=== PATIENT | male | born 1945 | race Caucasian/White ===

== ENCOUNTER → 2016-08-23 | Outpatient (CLI) | payer OTHER ==
[~2016-08-23] MED LIST: AML5T PO; ASPI81TA69 PO; ATOR20TA PO; CLOP75TA28 PO; LEVO50TA66 PO; LOSA100T21 PO; TELM20TA2 PO
== END | disposition home or self-care (01) ==
LOC: Rad HDHVI 15:01
PROVIDERS: ATTEND Internal Medicine Cardiovascular Disease
DX: I10 Essential (primary) hypertension (principal); E78.00 Pure hypercholesterolemia, unspecified; Q23.0 Congenital stenosis of aortic valve
CPT/HCPCS: 93306

== ENCOUNTER → 2016-08-24 | Outpatient (CLI) | payer OTHER | END | disposition home or self-care (01) | LOC: Rad HDHVI 08:17 | PROVIDERS: ATTEND Internal Medicine Cardiovascular Disease | DX: G45.8 Other transient cerebral ischemic attacks and related syndromes (principal); Q23.0 Congenital stenosis of aortic valve | CPT/HCPCS: 93880 ==

== ENCOUNTER → 2017-01-24 | Outpatient (CLI) | payer OTHER | END | disposition home or self-care (01) | LOC: Rad HDHVI 15:01 | PROVIDERS: ATTEND Internal Medicine Cardiovascular Disease | DX: G45.9 Transient cerebral ischemic attack, unspecified (principal) | CPT/HCPCS: 93880; 93926 ==

== ENCOUNTER → 2017-02-22 | Outpatient (CLI) | payer OTHER ==
[~2017-02-22] VITALS: Ht 180.3 cm; Wt 81.6 kg
[~2017-02-22] MED LIST changes: +ADENOSINE 69 MG in GIVE UN-DILUTED 0 ML IV ONE; +ADENOSINE 90 MG/30 ML INJ IV ONE
== END | disposition home or self-care (01) ==
LOC: Rad HDHVI 08:29
PROVIDERS: ATTEND Internal Medicine Cardiovascular Disease
DX: I25.10 Atherosclerotic heart disease of native coronary artery without angina pectoris (principal); I10 Essential (primary) hypertension; E03.9 Hypothyroidism, unspecified; R53.81 Other malaise; R97.20 Elevated prostate specific antigen [PSA]; E78.00 Pure hypercholesterolemia, unspecified
CPT/HCPCS: 36415; 78452; 84153; 84403; 84443; 93005; 96374; 96375; A9500; J0153

== ENCOUNTER → 2017-10-20 | Outpatient (CLI) | payer MEDICARE ==
[~2017-10-20] MED LIST changes: -ADENOSINE 69 MG in GIVE UN-DILUTED 0 ML IV ONE; -ADENOSINE 90 MG/30 ML INJ IV ONE; +TELM20TA PO; -TELM20TA2 PO
== END | disposition home or self-care (01) ==
LOC: Rad HDHVI 09:24
PROVIDERS: ATTEND Internal Medicine Cardiovascular Disease
DX: I70.0 Atherosclerosis of aorta (principal); I10 Essential (primary) hypertension; E03.9 Hypothyroidism, unspecified; E78.00 Pure hypercholesterolemia, unspecified
CPT/HCPCS: 71046

== ENCOUNTER → 2017-10-30 | Outpatient (CLI) | payer MEDICARE | END | disposition home or self-care (01) | LOC: Rad HDHVI 08:09 | PROVIDERS: ATTEND Internal Medicine Cardiovascular Disease | DX: I35.0 Nonrheumatic aortic (valve) stenosis (principal); R06.02 Shortness of breath; E78.00 Pure hypercholesterolemia, unspecified; E03.9 Hypothyroidism, unspecified | CPT/HCPCS: 93306 ==

== ENCOUNTER → 2018-04-17 | Outpatient (CLI) | payer MEDICARE | END | disposition home or self-care (01) | LOC: Rad HDHVI 08:00 | PROVIDERS: ATTEND Internal Medicine Cardiovascular Disease | DX: I73.9 Peripheral vascular disease, unspecified (principal) | CPT/HCPCS: 93926 ==

== ENCOUNTER → 2018-05-14 | Outpatient (CLI) | payer MEDICARE ==
[~2018-05-14] VITALS: Ht 180.3 cm; Wt 77.1 kg
[~2018-05-14] MED LIST changes: +GABA800T97 PO
[2018-05-14 09:15] VITALS: BP 142/61
[2018-05-14 09:40] VITALS: BP 132/61
[2018-05-14 12:24] LABS: Basophils # (auto) 0.1 uL; Basophils % (auto) 0.9 % (0.0-2.0); Eosinophils # (auto) 0.1 uL; Eosinophils % (auto) 1.6 % (0.0-7.0); Hematocrit 41.3 % (41.0-53.0); Hemoglobin 14.1 g/dL (13.5-17.5); Lymphocytes # (auto) 1.9 uL; Lymphocytes % (auto) 24.8 % (10.0-50.0); Mean Corpuscular Hemoglobin 31.7 pg (28.0-32.0); Mean Corpuscular Hgb Conc. 34.2 g/dL (32.0-36.0); Mean Corpuscular Volume 92.6 fL (80.0-100.0); Monocytes # (auto) 0.7 uL; Monocytes % (auto) 9.7 % (0.0-12.0); Neutrophils # (auto) 4.9 uL; Nucleated Red Blood Cells % 0.1 %; Platelet Count (auto) 282 10^3/uL (140-450); Red Blood Cells 4.45 10^6/uL (4.5-5.90); Red Cell Distribution Width 13.5 % (11.8-14.3); White Blood Cell 7.7 10^3/uL (4.4-10.8)
[2018-05-14 12:33] LABS: Calcium 8.9 mg/dL (8.5-10.1); Potassium 4.2 mmol/L (3.5-5.1)
[2018-05-14 12:35] LABS: BUN/Creatinine Ratio 13.3; INR 0.99 (0.9-1.15); Prothrombin Time 10.6 sec (9.27-12.13)
== END | disposition home or self-care (01) ==
LOC: Rad HDHVI 08:53
PROVIDERS: ATTEND Internal Medicine Cardiovascular Disease
DX: Z01.818 Encounter for other preprocedural examination (principal); D64.9 Anemia, unspecified; R79.1 Abnormal coagulation profile; I10 Essential (primary) hypertension
CPT/HCPCS: 36415; 71046; 80048; 85025; 85610; 85730; 93005; G0463

== ENCOUNTER → 2018-08-27 | Outpatient (CLI) | payer MEDICARE ==
[~2018-08-27] MED LIST changes: +CHLO25TA22 PO; +LEVO88TA4 PO; +TELM80TA PO
[2018-08-27 11:10] VITALS: BP 137/77
--- NOTE | 2018-08-27 11:10 | NUR ---
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
--- NOTE | 2018-08-27 11:20 | NUR ---
Discharge Instructions See e-MAR for any mediations given with this visit. Patient education given on disease process. Patient verbalized understanding. Previous labs reviewed. Patient discharged in stable condition with after care instructions and follow up appointment.
[2018-08-27 12:27] LABS: BUN/Creatinine Ratio 13.3; Potassium 3.8 mmol/L (3.5-5.1)
[2018-08-27 12:31] LABS: Basophils # (auto) 0.1 uL; Basophils % (auto) 1.1 % (0.0-2.0); Eosinophils # (auto) 0.1 uL; Eosinophils % (auto) 1.1 % (0.0-7.0); Hemoglobin 14.8 g/dL (13.5-17.5); Lymphocytes # (auto) 1.7 uL; Lymphocytes % (auto) 26.2 % (10.0-50.0); Mean Corpuscular Hemoglobin 32.2 pg (28.0-32.0); Mean Corpuscular Hgb Conc. 34.5 g/dL (32.0-36.0); Mean Corpuscular Volume 93.4 fL (80.0-100.0); Monocytes # (auto) 0.8 uL; Monocytes % (auto) 11.8 % (0.0-12.0); Neutrophils # (auto) 3.9 uL; Neutrophils % (auto) 59.8 % (37.0-80.0); Nucleated Red Blood Cells % 0.1 %; Platelet Count (auto) 321 10^3/uL (140-450); Red Blood Cells 4.61 10^6/uL (4.5-5.90); Red Cell Distribution Width 13.6 % (11.8-14.3); White Blood Cell 6.6 10^3/uL (4.4-10.8)
[2018-08-27 12:38] LABS: INR 0.95 (0.9-1.15); Partial Thromboplastin Time 30.6 sec (23.78-33.04); Prothrombin Time 10.2 sec (9.27-12.13)
== END | disposition home or self-care (01) ==
LOC: Rad HDHVI 10:55
PROVIDERS: ATTEND Internal Medicine Cardiovascular Disease
DX: Z01.812 Encounter for preprocedural laboratory examination (principal); I70.0 Atherosclerosis of aorta; D64.9 Anemia, unspecified; R79.1 Abnormal coagulation profile; I10 Essential (primary) hypertension
CPT/HCPCS: 36415; 71046; 80048; 85025; 85610; 85730; 93005; G0463

== ENCOUNTER 2018-08-30 07:17 | Day surgery (SDC) | payer MEDICARE ==
[~2018-08-30] VITALS: Ht 177.8 cm; Wt 80.7 kg
[~2018-08-30 07:17] MED LIST changes: -AML5T PO; -LEVO50TA66 PO; -LOSA100T21 PO; -TELM20TA PO
[2018-08-30] MEDS ORDERED: HEPARIN IN NS 1000Units/500mL 1,500 ML ONE (07:55)
[2018-08-30] MEDS ORDERED: LIDOCAINE 2%HCL (LOCAL ANESTH.) INJ 20ML MDV ONE (07:55)
[2018-08-30] MEDS ORDERED: IOHEXOL 350 MG/ML 100ML IJ ONE ×2 (07:55→08:01)
[2018-08-30] MEDS ORDERED: fentaNYL CITRATE 100 MCG/2 ML VL ONE (07:59)
[2018-08-30] MEDS ORDERED: ANGIOMAX 250 MG VIAL IV ONE (07:59)
[2018-08-30] MEDS ORDERED: SODIUM CHL 0.9% 50 ML ONE (08:00)
[2018-08-30] MEDS ORDERED: MIDAZOLAM HCL 1MG/1ML-2 ML VIAL ONE ×2 (08:00→08:24)
[2018-08-30] MEDS ORDERED: diphenhdrAMINE HCL 50 MG/1 ML VL ONE (08:28)
== END 2018-08-30 13:15 | disposition home or self-care (01) ==
LOC: CATH 07:17
PROVIDERS: ATTEND Internal Medicine Cardiovascular Disease
DX: I74.3 Embolism and thrombosis of arteries of the lower extremities (principal); I77.1 Stricture of artery; F17.200 Nicotine dependence, unspecified, uncomplicated; I10 Essential (primary) hypertension; E78.00 Pure hypercholesterolemia, unspecified; Z91.041 Radiographic dye allergy status; Z95.5 Presence of coronary angioplasty implant and graft; Z79.82 Long term (current) use of aspirin; Z79.899 Other long term (current) drug therapy; Z98.890 Other specified postprocedural states
CPT/HCPCS: 37186; 37224; 75710; A6257; C1725; C1760; C1769; C1894; J0583; J1200; J1644; J2250; J3010; J7030; Q9967; 99152; 99153

== ENCOUNTER → 2018-09-11 | Outpatient (CLI) | payer MEDICARE ==
[2018-09-11 13:10] LABS: Albumin 3.4 g/dL (3.4-5.0); BUN/Creatinine Ratio 14.3; Bilirubin, Total 0.5 mg/dL (0.2-1.0); Calcium 8.4 mg/dL (8.5-10.1); Magnesium 2.7 mg/dL (1.6-2.6); Total Protein 6.6 g/dL (6.4-8.2)
== END | disposition home or self-care (01) ==
LOC: LAB 10:02
PROVIDERS: ATTEND Internal Medicine Cardiovascular Disease
DX: E11.9 Type 2 diabetes mellitus without complications (principal); E03.9 Hypothyroidism, unspecified; E55.9 Vitamin D deficiency, unspecified; I10 Essential (primary) hypertension
CPT/HCPCS: 36415; 80053; 82306; 83036; 83735; 84153; 84443

== ENCOUNTER → 2018-09-12 | Outpatient (CLI) | payer MEDICARE ==
[~2018-09-12] VITALS: Ht 30.5 cm; Wt 0.5 kg
[~2018-09-12] MED LIST changes: +SODIUM CHL 3% 250 ML IV ONE; +SODIUM CHL 3% 500 ML ONE
--- NOTE | 2018-09-12 07:55 | NUR ---
PT. TO CLINIC FOR IV INFUSION OF 3% NORMAL SALINE PER DR. JAMES, AFTER LAB REVIEW YESTERDAY OF SODIUM LEVEL OF 119. PT. ALSO WITH CONTINUED ELEVATED SYSTOLIC B/P., STATING HE TOOK ALL OF HIS AM MEDS. SEE NSG ASSESS. ORDERS RECEVED AND CARRIED OUT.
[2018-09-12 08:00] VITALS: BP 186/85
--- NOTE | 2018-09-12 08:00 | NUR ---
IV insertion IV access obtained, via clean sterile technique by inserting 22 gauge catheter at after attempt(s). IV secured properly. No trauma to site. Patient tolerated procedure well.
--- NOTE | 2018-09-12 08:05 | NUR ---
MEDS: 3% NORMAL SALINE STARTED AT 50 CC/HR.
--- NOTE | 2018-09-12 10:28 | NUR ---
RESTING IN CHAIR. BP IMPROVED. INFUSION ONGOING.
[2018-09-12 13:13] VITALS: BP 134/66
--- NOTE | 2018-09-12 13:13 | NUR ---
CHF INFUSION COMPLETED. TOLERATED WELL. RETURN TO CLINIC FOR FOLLOWUP LABS TOMORROW. MEDICATION ADMINISTRATION 3 % SALINE AT 50 ML/HR START AT 0810/STOP AT 1310
== END | disposition home or self-care (01) ==
LOC: CHF HDHVI 07:54
PROVIDERS: ATTEND Internal Medicine Cardiovascular Disease
DX: E87.1 Hypo-osmolality and hyponatremia (principal); E03.9 Hypothyroidism, unspecified; E11.9 Type 2 diabetes mellitus without complications; I10 Essential (primary) hypertension; E78.00 Pure hypercholesterolemia, unspecified; Z95.5 Presence of coronary angioplasty implant and graft; Z79.82 Long term (current) use of aspirin; Z86.718 Personal history of other venous thrombosis and embolism; Z79.899 Other long term (current) drug therapy
CPT/HCPCS: 96365; 96366; G0463

== ENCOUNTER → 2018-09-13 | Outpatient (CLI) | payer MEDICARE ==
[~2018-09-13] MED LIST changes: +SODIUM CHL 3% ONE
--- NOTE | 2018-09-13 08:50 | NUR ---
PT. TP CHF CLINIC FOR REPEAT LABS AND HYPERTONIC SALINE INFUSION PER MD ORDER. SEE NSG ASSESS. ORDERS RECEIVED AND CARRIED OUT.
[2018-09-13 09:00] VITALS: BP 182/70
--- NOTE | 2018-09-13 09:00 | NUR ---
IV insertion IV access obtained, via clean sterile technique by inserting 22 gauge catheter at after attempt(s). IV secured properly. No trauma to site. Patient tolerated procedure well. STAT BMP SENT PER MD ORDER.
--- NOTE | 2018-09-13 09:05 | NUR ---
MEDS: 3% SALINE STARTED AT 50 CC/HR PER MD ORDER.
[2018-09-13 10:06] LABS: BUN/Creatinine Ratio 14.5; Calcium 8.3 mg/dL (8.5-10.1); Potassium 3.8 mmol/L (3.5-5.1)
[2018-09-13 12:10] VITALS: BP 167/69
--- NOTE | 2018-09-13 12:10 | NUR ---
INFUSION COMPLETED. TOLERATED WELL. Discharge Instructions See e-MAR for any mediations given with this visit. Patient education given on disease process. Patient verbalized understanding. Previous labs reviewed. Patient discharged in stable condition with after care instructions and follow up appointment FOR 09/14/18 AT 0830
== END | disposition home or self-care (01) ==
LOC: CHF HDHVI 08:51
PROVIDERS: ATTEND Internal Medicine Cardiovascular Disease
DX: E87.1 Hypo-osmolality and hyponatremia (principal); E78.5 Hyperlipidemia, unspecified; I10 Essential (primary) hypertension; J32.9 Chronic sinusitis, unspecified; K57.90 Diverticulosis of intestine, part unspecified, without perforation or abscess without bleeding; E03.9 Hypothyroidism, unspecified; E11.9 Type 2 diabetes mellitus without complications; Z79.82 Long term (current) use of aspirin; Z79.899 Other long term (current) drug therapy; Z95.1 Presence of aortocoronary bypass graft; Z87.891 Personal history of nicotine dependence; Z86.718 Personal history of other venous thrombosis and embolism
CPT/HCPCS: 36415; 80048; 96365; 96366; G0463

== ENCOUNTER → 2018-09-14 | Outpatient (CLI) | payer MEDICARE ==
[~2018-09-14] VITALS: Ht 30.5 cm; Wt 78.0 kg
[~2018-09-14] MED LIST changes: -SODIUM CHL 3% 250 ML IV ONE; +SODIUM CHL 3% 500 ML IV ONE; -SODIUM CHL 3% ONE
[2018-09-14 08:40] VITALS: BP 171/67
--- NOTE | 2018-09-14 08:40 | NUR ---
CHF PT TO CLINIC FOR REPEAT 3% NS INFUSION.
--- NOTE | 2018-09-14 08:45 | NUR ---
IV insertion IV access obtained, via clean sterile technique by inserting 22 gauge catheter at LEFT FOREARM after 1 attempt(s). IV secured properly. No trauma to site. Patient tolerated procedure well. Addendum: 09/14/18 at 0962 by Archana Chaidez RN BMP DRAWN AND SENT STAT
--- NOTE | 2018-09-14 08:48 | NUR ---
Clinic Provider Clinic Provider into see pt with new orders received and carried out. 3% SALINE INFUSION STARTED AT 50 ML/HR.
--- NOTE | 2018-09-14 09:00 | NUR ---
INFUSION ONGOING. TOLERATING WELL.
[2018-09-14 09:15] VITALS: BP 173/69
[2018-09-14 09:30] VITALS: BP 172/71
[2018-09-14 09:40] LABS: BUN/Creatinine Ratio 13.1; Calcium 8.7 mg/dL (8.5-10.1); Potassium 3.9 mmol/L (3.5-5.1)
[2018-09-14 10:15] VITALS: BP 155/67
--- NOTE | 2018-09-14 11:30 | NUR ---
FREQUENT VITALS 0915 BP 173/69 HR 69 0930 BP 172/71 HR 60 1015 BP 155/67 HR 63 1045 166/63 HR 64 1130 BP 149/63 HR 63
--- NOTE | 2018-09-14 12:40 | NUR ---
CURRENT LABS REVIEWED AND DISCUSSED WITH PATIIENT. FOLLOWUP ON Monday09/17/18 WITH
[2018-09-14 12:49] VITALS: BP 170/70
--- NOTE | 2018-09-14 13:00 | NUR ---
CHF TREATMENT COMPLETED. TOLERATED WELL. SEE FREQUENT VITALS Discharge Instructions See e-MAR for any mediations given with this visit. Patient education given on disease process. Patient verbalized understanding. Previous labs reviewed. Patient discharged in stable condition with after care instructions and follow up appointment FOR Monday09/17/18 FOR 0800 LAB DRAW OF MEGAN AND THE DOCTOR [id number] AT 1130
== END | disposition home or self-care (01) ==
LOC: CHF HDHVI 08:49
PROVIDERS: ATTEND Internal Medicine Cardiovascular Disease
DX: E87.1 Hypo-osmolality and hyponatremia (principal); I10 Essential (primary) hypertension; E03.9 Hypothyroidism, unspecified; E11.9 Type 2 diabetes mellitus without complications; J32.9 Chronic sinusitis, unspecified; K57.90 Diverticulosis of intestine, part unspecified, without perforation or abscess without bleeding; Z79.82 Long term (current) use of aspirin; Z79.899 Other long term (current) drug therapy; Z95.1 Presence of aortocoronary bypass graft; Z87.891 Personal history of nicotine dependence; Z86.718 Personal history of other venous thrombosis and embolism
CPT/HCPCS: 36415; 80048; 96365; 96366; G0463

== ENCOUNTER → 2018-09-17 | Outpatient (CLI) | payer MEDICARE ==
[~2018-09-17] MED LIST changes: +READI-CAT 2 (BARIUM SULF)(VANILLA SMOOTHIE) 450ML ONE; -SODIUM CHL 3% 500 ML IV ONE; -SODIUM CHL 3% 500 ML ONE
[2018-09-17 09:48] LABS: Calcium 8.5 mg/dL (8.5-10.1)
== END | disposition home or self-care (01) ==
LOC: LAB 08:20
PROVIDERS: ATTEND Internal Medicine Cardiovascular Disease
DX: D35.01 Benign neoplasm of right adrenal gland (principal); N20.0 Calculus of kidney; K57.30 Diverticulosis of large intestine without perforation or abscess without bleeding; D17.9 Benign lipomatous neoplasm, unspecified; E87.1 Hypo-osmolality and hyponatremia; I10 Essential (primary) hypertension; I70.0 Atherosclerosis of aorta
CPT/HCPCS: 36415; 71250; 74176; 80048

== ENCOUNTER → 2018-09-21 | Outpatient (CLI) | payer MEDICARE ==
[~2018-09-21] MED LIST changes: -READI-CAT 2 (BARIUM SULF)(VANILLA SMOOTHIE) 450ML ONE
[2018-09-21 12:59] LABS: BUN/Creatinine Ratio 17.5; Calcium 8.5 mg/dL (8.5-10.1)
== END | disposition home or self-care (01) ==
LOC: LAB 08:53
PROVIDERS: ATTEND Internal Medicine Cardiovascular Disease
DX: E87.1 Hypo-osmolality and hyponatremia (principal); I10 Essential (primary) hypertension
CPT/HCPCS: 36415; 80048

== ENCOUNTER → 2018-09-26 | Outpatient (CLI) | payer MEDICARE | END | disposition home or self-care (01) | LOC: Rad HDHVI 10:11 | PROVIDERS: ATTEND Internal Medicine Cardiovascular Disease | DX: J32.9 Chronic sinusitis, unspecified (principal); K04.90 Unspecified diseases of pulp and periapical tissues; R22.0 Localized swelling, mass and lump, head | CPT/HCPCS: 70486 ==

== ENCOUNTER → 2018-10-03 | Outpatient (CLI) | payer MEDICARE | END | disposition home or self-care (01) | LOC: Rad HDHVI 10:46 | PROVIDERS: ATTEND Internal Medicine Cardiovascular Disease | DX: I77.1 Stricture of artery (principal); I73.9 Peripheral vascular disease, unspecified | CPT/HCPCS: 93926 ==

== ENCOUNTER → 2018-10-10 | Outpatient (CLI) | payer MEDICARE ==
[~2018-10-10] MED LIST changes: +cloNIDine HCL 0.1 MG TAB ONE; +cloNIDine HCL 0.1 MG TAB PO ONE
[2018-10-10 15:00] VITALS: BP 201/75
--- NOTE | 2018-10-10 15:00 | NUR ---
PATIENT CAME INTO CLINIC STATING HE HAS HAD HIGH BP READINGS THE PAST COUPLE DAYS. VITAL SIGNS TAKEN, WILL CONTINUE TO MONITOR.
[2018-10-10 15:30] VITALS: BP 210/84
--- NOTE | 2018-10-10 15:45 | NUR ---
PATIENT BP STILL ELEVATED, MD INFORMED, ORDERS RECEIVED ENTERED.
[2018-10-10 15:55] VITALS: BP 195/78
[2018-10-10 16:30] VITALS: BP 204/76
[2018-10-10 17:00] VITALS: BP 175/67
--- NOTE | 2018-10-10 17:00 | NUR ---
CHF CLINIC Discharge Instructions See e-MAR for any mediations given with this visit. Patient education given on disease process. Patient verbalized understanding. Previous labs reviewed. Patient discharged in stable condition with after care instructions and follow up appointment. NOTE CLONIDINE PO ADMIN BY JEYSON COLEY. SENT ESCRIPT FOR CLONIDINE 0.2MG BID TO PT PHARMACY.
== END | disposition home or self-care (01) ==
LOC: CHF HDHVI 15:52
PROVIDERS: ATTEND Internal Medicine Cardiovascular Disease
DX: D35.00 Benign neoplasm of unspecified adrenal gland (principal); I10 Essential (primary) hypertension
CPT/HCPCS: G0463

== ENCOUNTER → 2019-02-12 | Outpatient (CLI) | payer MEDICARE ==
[~2019-02-12] MED LIST changes: -CHLO25TA22 PO; -cloNIDine HCL 0.1 MG TAB ONE; -cloNIDine HCL 0.1 MG TAB PO ONE
== END | disposition home or self-care (01) ==
LOC: Rad HDHVI 08:43
PROVIDERS: ATTEND Internal Medicine Cardiovascular Disease
DX: I08.3 Combined rheumatic disorders of mitral, aortic and tricuspid valves (principal); J44.9 Chronic obstructive pulmonary disease, unspecified; I10 Essential (primary) hypertension; E78.00 Pure hypercholesterolemia, unspecified; E03.9 Hypothyroidism, unspecified; E78.5 Hyperlipidemia, unspecified
CPT/HCPCS: 93306

== ENCOUNTER → 2019-02-25 | Outpatient (CLI) | payer MEDICARE ==
[~2019-02-25] VITALS: Ht 180.3 cm; Wt 76.2 kg
[~2019-02-25] MED LIST changes: +ADENOSINE 64 MG in GIVE UN-DILUTED 0 ML IV ONE; +ADENOSINE 90 MG/30 ML INJ IV ONE
== END | disposition home or self-care (01) ==
LOC: Rad HDHVI 13:18
PROVIDERS: ATTEND Internal Medicine Cardiovascular Disease
DX: E78.00 Pure hypercholesterolemia, unspecified (principal); I10 Essential (primary) hypertension
CPT/HCPCS: 78452; 93005; 96374; 96375; A9500; J0153

== ENCOUNTER → 2019-03-11 | Outpatient (CLI) | payer MEDICARE ==
[~2019-03-11] MED LIST changes: -ADENOSINE 64 MG in GIVE UN-DILUTED 0 ML IV ONE; -ADENOSINE 90 MG/30 ML INJ IV ONE; +IOHEXOL 350 MG/ML 100ML IJ ONE
[2019-03-11 12:00] VITALS: BP 194/72
--- NOTE | 2019-03-11 12:00 | NUR ---
IV insertion IV access obtained, via clean sterile technique by inserting [20] gauge catheter at [RAC after [1) attempt(s). IV secured properly. No trauma to site. Patient tolerated procedure well.
[2019-03-11 14:04] VITALS: BP 187/76
--- NOTE | 2019-03-11 14:04 | NUR ---
IV removal IV DC'd with sterile technique, catheter fully intact. Pressure dressing applied to site. Patient tolerated procedure well. Discharged with aftercare instructions per MD. NOTE:
== END | disposition home or self-care (01) ==
LOC: Rad HDHVI 11:57
PROVIDERS: ATTEND Internal Medicine Cardiovascular Disease
DX: R94.4 Abnormal results of kidney function studies (principal); I11.0 Hypertensive heart disease with heart failure; I50.9 Heart failure, unspecified; I25.5 Ischemic cardiomyopathy
CPT/HCPCS: 36415; 82565; G0463; Q9967

== ENCOUNTER → 2019-04-15 | Outpatient (CLI) | payer MEDICARE ==
[~2019-04-15] MED LIST changes: +CLON0.1T PO; +DOXA4TAB2 PO; -IOHEXOL 350 MG/ML 100ML IJ ONE; +POTA10TA51 PO; +SACU1TAB7 PO; +TORS20TA20 PO
[2019-04-15 10:10] VITALS: BP 185/70
[2019-04-15 10:45] VITALS: BP 192/68
--- NOTE | 2019-04-15 10:45 | NUR ---
Pre-Op Discharge Summary: See e-MAR for any medications given for this visit. Pre-op orders received and carried out per MD of EKG, LABS and chest xrays. Patient given a copy of EKG with instructions to go to [facility] out patient for further follow up care.
[2019-04-15 12:09] LABS: Basophils # (auto) 0 uL; Basophils % (auto) 0.6 % (0.0-2.0); Eosinophils # (auto) 0.1 uL; Eosinophils % (auto) 0.7 % (0.0-7.0); Hematocrit 42.8 % (41.0-53.0); Hemoglobin 14.5 g/dL (13.5-17.5); Lymphocytes # (auto) 1.1 uL; Lymphocytes % (auto) 13.8 % (10.0-50.0); Mean Corpuscular Hemoglobin 32.2 pg (28.0-32.0); Mean Corpuscular Hgb Conc. 33.8 g/dL (32.0-36.0); Mean Corpuscular Volume 95.3 fL (80.0-100.0); Monocytes # (auto) 0.7 uL; Monocytes % (auto) 8.7 % (0.0-12.0); Neutrophils # (auto) 6.1 uL; Neutrophils % (auto) 76.2 % (37.0-80.0); Nucleated Red Blood Cells % 0.1 %; Platelet Count (auto) 250 10^3/uL (140-450); Red Blood Cells 4.49 10^6/uL (4.5-5.90); Red Cell Distribution Width 13.9 % (11.8-14.3)
[2019-04-15 12:21] LABS: Calcium 7.8 mg/dL (8.5-10.1); Potassium 4.2 mmol/L (3.5-5.1)
[2019-04-15 12:25] LABS: BUN/Creatinine Ratio 12.6
[2019-04-15 12:31] LABS: INR 0.93 (0.9-1.15); Partial Thromboplastin Time 29.2 sec (23.64-32.05)
== END | disposition home or self-care (01) ==
LOC: Rad HDHVI 09:39
PROVIDERS: ATTEND Internal Medicine Cardiovascular Disease
DX: Z01.812 Encounter for preprocedural laboratory examination (principal); I70.0 Atherosclerosis of aorta; I10 Essential (primary) hypertension; R94.31 Abnormal electrocardiogram [ECG] [EKG]
CPT/HCPCS: 36415; 71046; 80048; 85025; 85610; 85730; 93005; G0463

== ENCOUNTER → 2019-04-18 | Day surgery (SDC) | payer MEDICARE ==
[~2019-04-18] VITALS: Ht 180.3 cm; Wt 78.9 kg
[~2019-04-18] MED LIST changes: +ACETAMINOPHEN 500 MG TAB PO ONE; +ACETAMINOPHEN 500 MG TAB PO PRN; +ANGIOMAX 250 MG VIAL IV ONE; -ASPI81TA69 PO; +GABAPENTIN 400 MG CAP PO ONE; +IOHEXOL 350 MG/ML 100ML IJ ONE; +LIDOCAINE 2%HCL (LOCAL ANESTH.) INJ 20ML MDV ONE; +MIDAZOLAM HCL 1MG/1ML-2 ML VIAL ONE; +NITROGLYCERIN 0.4MG/DOSE SPRAY 4.9GM ONE; +POTASSIUM CHL 10 Meq TABLET PO ONE; +SODIUM CHL 0.9% 0 ML ONE; -TELM80TA PO; +TORSEMIDE 20 MG TAB PO ONE; +cloNIDine HCL 0.1 MG TAB ONE; +cloNIDine HCL 0.1 MG TAB PO ONE; +fentaNYL CITRATE 100 MCG/2 ML VL ONE
== END | disposition home or self-care (01) ==
LOC: CATH 04-09 08:59
PROVIDERS: ATTEND Internal Medicine Cardiovascular Disease
DX: I35.0 Nonrheumatic aortic (valve) stenosis (principal); I25.10 Atherosclerotic heart disease of native coronary artery without angina pectoris; I70.1 Atherosclerosis of renal artery; I10 Essential (primary) hypertension; E78.5 Hyperlipidemia, unspecified; I73.9 Peripheral vascular disease, unspecified; K57.30 Diverticulosis of large intestine without perforation or abscess without bleeding; Z87.891 Personal history of nicotine dependence; Z95.818 Presence of other cardiac implants and grafts; Z86.73 Personal history of transient ischemic attack (TIA), and cerebral infarction without residual deficits; Z79.899 Other long term (current) drug therapy
CPT/HCPCS: 36252; 93458; C1760; C1894; J1644; J2250; J3010; Q9967; 99152; 99153

== ENCOUNTER → 2019-05-10 | Outpatient (CLI) | payer MEDICARE ==
[~2019-05-10] MED LIST changes: -ACETAMINOPHEN 500 MG TAB PO ONE; -ACETAMINOPHEN 500 MG TAB PO PRN; -ANGIOMAX 250 MG VIAL IV ONE; +CYANOCOBALAMIN (B-12) 1000 MCG/1 ML VIAL IM ONE; +CYANOCOBALAMIN (B-12) 1000 MCG/1 ML VIAL ONE; +FUROSEMIDE 40 MG/4 ML VIAL IV ONE; +FUROSEMIDE 40 MG/4 ML VIAL ONE; -GABAPENTIN 400 MG CAP PO ONE; -IOHEXOL 350 MG/ML 100ML IJ ONE; -LIDOCAINE 2%HCL (LOCAL ANESTH.) INJ 20ML MDV ONE; -MIDAZOLAM HCL 1MG/1ML-2 ML VIAL ONE; -NITROGLYCERIN 0.4MG/DOSE SPRAY 4.9GM ONE; -POTASSIUM CHL 10 Meq TABLET PO ONE; +POTASSIUM CHL 20 Meq TABLET PO ONE; -SODIUM CHL 0.9% 0 ML ONE; -TORSEMIDE 20 MG TAB PO ONE; -cloNIDine HCL 0.1 MG TAB ONE; -cloNIDine HCL 0.1 MG TAB PO ONE; -fentaNYL CITRATE 100 MCG/2 ML VL ONE
[2019-05-10 12:40] VITALS: BP 178/66
[2019-05-10 16:10] LABS: BUN/Creatinine Ratio 12.2; Calcium 8.3 mg/dL (8.5-10.1); Magnesium 2.1 mg/dL (1.6-2.6); Potassium 3.9 mmol/L (3.5-5.1)
== END | disposition home or self-care (01) ==
LOC: CHF HDHVI 11:24
PROVIDERS: ATTEND Internal Medicine Cardiovascular Disease
DX: I50.9 Heart failure, unspecified (principal); I10 Essential (primary) hypertension; E83.40 Disorders of magnesium metabolism, unspecified; Z87.891 Personal history of nicotine dependence
CPT/HCPCS: 36415; 80048; 83735; 83880; 96372; 96374; G0463; J1940; J3420

== ENCOUNTER → 2019-05-15 | Outpatient (CLI) | payer MEDICARE ==
[~2019-05-15] MED LIST changes: -CYANOCOBALAMIN (B-12) 1000 MCG/1 ML VIAL IM ONE; -CYANOCOBALAMIN (B-12) 1000 MCG/1 ML VIAL ONE; -FUROSEMIDE 40 MG/4 ML VIAL IV ONE; -FUROSEMIDE 40 MG/4 ML VIAL ONE; -POTASSIUM CHL 20 Meq TABLET PO ONE
== END | disposition home or self-care (01) ==
LOC: Rad HDHVI 08:17
PROVIDERS: ATTEND Internal Medicine Cardiovascular Disease
DX: I70.203 Unspecified atherosclerosis of native arteries of extremities, bilateral legs (principal); Z98.61 Coronary angioplasty status
CPT/HCPCS: 93925; 93926

== ENCOUNTER → 2019-06-26 | Outpatient (CLI) | payer MEDICARE ==
[2019-06-26 12:18] LABS: Potassium 4.6 mmol/L (3.5-5.1)
[2019-06-26 12:31] LABS: Albumin 2.5 g/dL (3.4-5.0); BUN/Creatinine Ratio 22.1; Bilirubin, Total 0.3 mg/dL (0.2-1.0); Calcium 8.4 mg/dL (8.5-10.1); Total Protein 5.7 g/dL (6.4-8.2)
== END | disposition home or self-care (01) ==
LOC: LAB 08:36
PROVIDERS: ATTEND Internal Medicine Cardiovascular Disease
DX: I10 Essential (primary) hypertension (principal)
CPT/HCPCS: 36415; 80053

== ENCOUNTER → 2019-07-23 | Outpatient (CLI) | payer MEDICARE | END | disposition home or self-care (01) | LOC: Rad HDHVI 09:52 | PROVIDERS: ATTEND Internal Medicine Cardiovascular Disease | DX: I08.0 Rheumatic disorders of both mitral and aortic valves (principal); I50.33 Acute on chronic diastolic (congestive) heart failure; J44.9 Chronic obstructive pulmonary disease, unspecified | CPT/HCPCS: 93306 ==

== ENCOUNTER → 2019-08-16 | Outpatient (CLI) | payer MEDICARE ==
[2019-08-16 12:13] LABS: Potassium 4.6 mmol/L (3.5-5.1)
[2019-08-16 12:24] LABS: Albumin 2.3 g/dL (3.4-5.0); BUN/Creatinine Ratio 21.5; Bilirubin, Total 0.3 mg/dL (0.2-1.0); Calcium 8.1 mg/dL (8.5-10.1); Total Protein 5.2 g/dL (6.4-8.2)
== END | disposition home or self-care (01) ==
LOC: LAB 09:51
PROVIDERS: ATTEND Internal Medicine Cardiovascular Disease
DX: I10 Essential (primary) hypertension (principal)
CPT/HCPCS: 36415; 80053

== ENCOUNTER → 2019-08-23 | Outpatient (CLI) | payer MEDICARE ==
[~2019-08-23] MED LIST changes: +BUMETANIDE 1mg/4ml VIAL (0.25mg/ml) ONE; +BUMETANIDE 2.5mg/10ml (0.25 mg/ml) INJ IV ONE; +METO2.5T11 PO
[2019-08-23 11:30] VITALS: BP 140/62
--- NOTE | 2019-08-23 11:30 | NUR ---
Patient sent from MD side with orders as entered. Patient has bilat 4+ pitting edema in both legs.
--- NOTE | 2019-08-23 12:24 | NUR ---
Patient BP is 214/76 and has taken his home medication of Clonidine that is prescribed for as needed.
--- NOTE | 2019-08-23 13:00 | NUR ---
OK from Dr Kirkland to place bilat unna boots for ble edema.
--- NOTE | 2019-08-23 13:30 | NUR ---
Patient educated to not get dressing wet and to take them off Monday, bathe, and come to clinic for f/u. Patient verbalized understanding.
[2019-08-23 13:35] VITALS: BP 180/70
--- NOTE | 2019-08-23 13:35 | NUR ---
CHF Clinic Discharge Instructions See e-MAR for any mediations given with this visit. Patient education given on disease process. Patient verbalized understanding. Previous labs reviewed. Patient discharged in stable condition with after care instructions and follow up appointment. Note Bumex IV admin by Lynda walters applied by Katherine COLEY
== END | disposition home or self-care (01) ==
LOC: CHF HDHVI 11:39
PROVIDERS: ATTEND Internal Medicine Cardiovascular Disease
DX: I11.0 Hypertensive heart disease with heart failure (principal); I50.22 Chronic systolic (congestive) heart failure; R60.0 Localized edema; I25.10 Atherosclerotic heart disease of native coronary artery without angina pectoris; J44.9 Chronic obstructive pulmonary disease, unspecified
CPT/HCPCS: 96374; G0463; J3490

== ENCOUNTER → 2019-08-26 | Outpatient (CLI) | payer MEDICARE ==
[~2019-08-26] MED LIST changes: -BUMETANIDE 1mg/4ml VIAL (0.25mg/ml) ONE; -BUMETANIDE 2.5mg/10ml (0.25 mg/ml) INJ IV ONE; +FUROSEMIDE 100 MG/10ML VIAL IV ONE; +FUROSEMIDE 40 MG/4 ML VIAL ONE; +MAGNESIUM OXIDE 400 MG TAB ONE; +MAGNESIUM OXIDE 400 MG TAB PO ONE; +POTASSIUM CHL 10 Meq TABLET PO ONE; +POTASSIUM CHL 20 Meq TABLET PO ONE; +metOLazone 5 MG TAB ONE; +metOLazone 5 MG TAB PO ONE
--- NOTE | 2019-08-26 09:30 | NUR ---
PT. TO CHF CLINIC PER MD ORDER FOR EVAL. AND TX FOR UNNA BOOT APPLICATION AND MEDS PER DR. JAMES. PT. WITH EXTREME WT. GAIN AND BILAT. LOWER EXTREMITY EDEMA. PT. IS SCHEDULED FOR RT. SHOULDER SURGERY IN SEPTEMBER AND DR. JAMES WISHES TO HAVE PT.'S WT UNDER CONTRIL. ORDERS RECEIVED AND CARRIED OUT. SEE NSG ASSESS.
--- NOTE | 2019-08-26 09:43 | NUR ---
MEDS: PT. MEDICATED WITH METOLAZONE 5 MG PO, MAG OX. 400MG PO, AND KDUR 20 MEQ PO PER MD ORDER. PT. HAS TAKEN HIS AM MEDS. NOTED THAT HE IS TAKING CLONIDINE TID VS BID D/T PERSISTANT ELEVATED BP.
--- NOTE | 2019-08-26 10:30 | NUR ---
BILAT. MALENA HAMILTON APPLIED PER MD ORDER. PT. TOLERATED PROCEDURE WELL.
--- NOTE | 2019-08-26 11:00 | NUR ---
MEDS: LASIX 80MG SIVP GIVEN AFTER LABS DRAWN AND SENT PER MD ORDER.
[2019-08-26 11:10] VITALS: BP 180/62
--- NOTE | 2019-08-26 11:10 | NUR ---
Discharge Instructions See e-MAR for any mediations given with this visit. Patient education given on disease process. Patient verbalized understanding. Previous labs reviewed. Patient discharged in stable condition with after care instructions and follow up appointment. THIS RN WILL CALL PT. LATER TODAY WITH LAB RESULTS AND MED REC CHANGES. PT. TO RTC THURS FOR EVAL, AFTER REMOVING UNNA BOOTS.
[2019-08-26 12:00] LABS: Basophils # (auto) 0.1 10 ^3/uL (0-0.2); Basophils % (auto) 1.2 % (0.0-2.0); Eosinophils # (auto) 0.1 10 ^3/uL (0-0.8); Eosinophils % (auto) 1.2 % (0.0-7.0); Hemoglobin 11.6 g/dL (13.5-17.5); Lymphocytes % (auto) 17.7 % (10.0-50.0); Mean Corpuscular Hemoglobin 33.3 pg (28.0-32.0); Mean Corpuscular Hgb Conc. 35.2 g/dL (32.0-36.0); Mean Corpuscular Volume 94.4 fL (80.0-100.0); Monocytes # (auto) 0.5 10 ^3/uL (0-1.3); Monocytes % (auto) 8.1 % (0.0-12.0); Neutrophils # (auto) 4.1 10 ^3/uL (1.6-8.6); Neutrophils % (auto) 71.8 % (37.0-80.0); Platelet Count (auto) 246 10^3/uL (140-450); Red Cell Distribution Width 13.7 % (11.8-14.3); White Blood Cell 5.7 10^3/uL (4.4-10.8)
[2019-08-26 12:11] LABS: BUN/Creatinine Ratio 21.8; Calcium 8.2 mg/dL (8.5-10.1); Magnesium 2.1 mg/dL (1.6-2.6); Potassium 4.4 mmol/L (3.5-5.1)
== END | disposition home or self-care (01) ==
LOC: CHF HDHVI 09:31
PROVIDERS: ATTEND Internal Medicine Cardiovascular Disease
DX: I11.0 Hypertensive heart disease with heart failure (principal); I50.9 Heart failure, unspecified; I25.10 Atherosclerotic heart disease of native coronary artery without angina pectoris; D64.9 Anemia, unspecified; L21.9 Seborrheic dermatitis, unspecified
CPT/HCPCS: 36415; 80048; 83735; 83880; 85025; 96374; G0463; J1940

== ENCOUNTER → 2019-08-29 | Outpatient (CLI) | payer MEDICARE ==
[~2019-08-29] MED LIST changes: +CYANOCOBALAMIN (B-12) 1000 MCG/1 ML VIAL IM ONE; +CYANOCOBALAMIN (B-12) 1000 MCG/1 ML VIAL ONE; -FUROSEMIDE 100 MG/10ML VIAL IV ONE; -FUROSEMIDE 40 MG/4 ML VIAL ONE; -MAGNESIUM OXIDE 400 MG TAB ONE; -MAGNESIUM OXIDE 400 MG TAB PO ONE; -POTASSIUM CHL 10 Meq TABLET PO ONE; -POTASSIUM CHL 20 Meq TABLET PO ONE; -metOLazone 5 MG TAB ONE; -metOLazone 5 MG TAB PO ONE
--- NOTE | 2019-08-29 09:25 | NUR ---
CHF PT ARRIVED AT THE CHF CLINIC FOR TX AND F/U A/O X 4 0 DISTRESS.
--- NOTE | 2019-08-29 11:00 | NUR ---
EDUCATION/HYPONATREMIA PT ADVISED TO DECREASE THE FREE WATER INTAKE AND INCREASE G2. PT VERBALIZED UNDERSTANDING.
--- NOTE | 2019-08-29 11:30 | NUR ---
UNNA BOOTS APPLIED BILATERALLY PT TOLERATED WELL
[2019-08-29 11:51] VITALS: BP 170/70
--- NOTE | 2019-08-29 11:51 | NUR ---
Discharge Instructions See e-MAR for any mediations given with this visit. Patient education given on disease process. Patient verbalized understanding. Previous labs reviewed. Patient discharged in stable condition with after care instructions and follow up appointment. MEDICATIONS VITAMIN B12 1000 MCG IM LEFT DELTOID LOT # [id number] EXP 01/06 UNNA BOOT THERAPY PT TO FOLLOW UP ON MondaySEPTEMBER 25 FOR PREOP
[2019-08-29 12:03] LABS: Potassium 4.1 mmol/L (3.5-5.1)
== END | disposition home or self-care (01) ==
LOC: CHF HDHVI 09:32
PROVIDERS: ATTEND Internal Medicine Cardiovascular Disease
DX: I11.0 Hypertensive heart disease with heart failure (principal); I50.22 Chronic systolic (congestive) heart failure; I25.10 Atherosclerotic heart disease of native coronary artery without angina pectoris; J44.9 Chronic obstructive pulmonary disease, unspecified
CPT/HCPCS: 36415; 82565; 83880; 84132; 84520; 96372; G0463; J3420

== ENCOUNTER → 2019-09-03 | Outpatient (CLI) | payer MEDICARE ==
[~2019-09-03] MED LIST changes: -CYANOCOBALAMIN (B-12) 1000 MCG/1 ML VIAL IM ONE; -CYANOCOBALAMIN (B-12) 1000 MCG/1 ML VIAL ONE
--- NOTE | 2019-09-03 09:10 | NUR ---
CHF PT ARRIVED TO THE CHF CLINIC FOR PREOP . PT A/O X 4 0 DISTRESS VSS.
--- NOTE | 2019-09-03 09:33 | NUR ---
Pre-Op Discharge Summary: See e-MAR for any medications given for this visit. Pre-op orders received and carried out per MD of EKG, LABS and chest xrays. Patient given a copy of EKG with instructions to go to [facility] out patient for further follow up care.
[2019-09-03 09:35] VITALS: BP 167/67
[2019-09-03 10:51] VITALS: BP 134/47
[2019-09-03 12:14] LABS: Basophils # (auto) 0.1 10 ^3/uL (0-0.2); Basophils % (auto) 1.1 % (0.0-2.0); Eosinophils # (auto) 0.1 10 ^3/uL (0-0.8); Eosinophils % (auto) 1.5 % (0.0-7.0); Hematocrit 33.8 % (41.0-53.0); Lymphocytes # (auto) 1.3 10 ^3/uL (0.4-5.4); Lymphocytes % (auto) 27.9 % (10.0-50.0); Mean Corpuscular Hemoglobin 32.9 pg (28.0-32.0); Mean Corpuscular Hgb Conc. 35.5 g/dL (32.0-36.0); Mean Corpuscular Volume 92.9 fL (80.0-100.0); Monocytes # (auto) 0.5 10 ^3/uL (0-1.3); Neutrophils # (auto) 2.8 10 ^3/uL (1.6-8.6); Neutrophils % (auto) 58.5 % (37.0-80.0); Nucleated Red Blood Cells % 0.2 %; Platelet Count (auto) 303 10^3/uL (140-450); Red Blood Cells 3.64 10^6/uL (4.5-5.90); Red Cell Distribution Width 13.7 % (11.8-14.3); White Blood Cell 4.8 10^3/uL (4.4-10.8)
[2019-09-03 12:21] LABS: BUN/Creatinine Ratio 20.9; Calcium 8.1 mg/dL (8.5-10.1); Potassium 4.2 mmol/L (3.5-5.1)
[2019-09-03 12:26] LABS: INR 0.96 (0.9-1.15); Partial Thromboplastin Time 29.9 sec (23.64-32.05)
== END | disposition home or self-care (01) ==
LOC: Rad HDHVI 08:45
PROVIDERS: ATTEND Internal Medicine Cardiovascular Disease
DX: Z01.812 Encounter for preprocedural laboratory examination (principal); I70.0 Atherosclerosis of aorta; J90 Pleural effusion, not elsewhere classified; J98.11 Atelectasis; I10 Essential (primary) hypertension; R60.0 Localized edema
CPT/HCPCS: 36415; 71046; 80048; 85025; 85610; 85730; 93005; G0463

== ENCOUNTER 2019-09-05 07:23 | Inpatient (IN) | payer MEDICARE ==
[~2019-09-05] VITALS: Ht 180.3 cm; Wt 36.6 kg
[~2019-09-05 07:23] MED LIST changes: -METO2.5T11 PO
[2019-09-05] MEDS ORDERED: LIDOCAINE 2%HCL (LOCAL ANESTH.) INJ 20ML MDV ONE (09:13)
[2019-09-05] MEDS ORDERED: IOHEXOL 350 MG/ML 100ML IJ ONE ×2 (09:13→10:20)
[2019-09-05] MEDS: metOLazone 5 MG TAB PO SCH (10:00)
[2019-09-05] MEDS ORDERED: ANGIOMAX 250 MG VIAL IV ONE (10:19)
[2019-09-05] MEDS ORDERED: fentaNYL CITRATE 100 MCG/2 ML VL ONE (10:19)
[2019-09-05] MEDS ORDERED: MIDAZOLAM HCL 1MG/1ML-2 ML VIAL ONE (10:20)
[2019-09-05] MEDS ORDERED: SODIUM CHL 0.9% 0 ML ONE (10:20)
[2019-09-05 10:52] LABS: Basophils # (auto) 0.1 10 ^3/uL (0-0.2); Basophils % (auto) 0.9 % (0.0-2.0); Eosinophils # (auto) 0 10 ^3/uL (0-0.8); Eosinophils % (auto) 0.7 % (0.0-7.0); Hematocrit 34.5 % (41.0-53.0); Hemoglobin 12.2 g/dL (13.5-17.5); Lymphocytes # (auto) 1.3 10 ^3/uL (0.4-5.4); Lymphocytes % (auto) 21.5 % (10.0-50.0); Mean Corpuscular Hemoglobin 32.7 pg (28.0-32.0); Mean Corpuscular Hgb Conc. 35.4 g/dL (32.0-36.0); Mean Corpuscular Volume 92.4 fL (80.0-100.0); Monocytes # (auto) 0.5 10 ^3/uL (0-1.3); Monocytes % (auto) 7.7 % (0.0-12.0); Neutrophils # (auto) 4.2 10 ^3/uL (1.6-8.6); Neutrophils % (auto) 69.2 % (37.0-80.0); Platelet Count (auto) 311 10^3/uL (140-450); Red Blood Cells 3.73 10^6/uL (4.5-5.90); Red Cell Distribution Width 13.6 % (11.8-14.3); White Blood Cell 6.1 10^3/uL (4.4-10.8)
[2019-09-05 11:43] LABS: Potassium 3.9 mmol/L (3.5-5.1)
[2019-09-05 11:51] LABS: Albumin 2.2 g/dL (3.4-5.0); BUN/Creatinine Ratio 19.7; Bilirubin, Total 0.4 mg/dL (0.2-1.0); Calcium 8.1 mg/dL (8.5-10.1); Total Protein 5.4 g/dL (6.4-8.2)
[2019-09-05] MEDS ORDERED: CLON0.1T PO (12:26)
[2019-09-05] MEDS ORDERED: DOXA4TAB2 PO (12:26)
[2019-09-05] MEDS ORDERED: METO2.5T11 PO (12:26)
[2019-09-05] MEDS ORDERED: POTA10TA51 PO (12:28)
[2019-09-05] MEDS ORDERED: ONDANSETRON HCL 4 MG/2 ML VIAL IV PRN (12:30)
[2019-09-05] MEDS ORDERED: HYDROcodone-ACET 5/325MG TAB PO PRN (12:30)
[2019-09-05] MEDS ORDERED: MORPHINE SULF INJ 2 MG/ML SYRINGE 1ML IV PRN (12:30)
[2019-09-05] MEDS ORDERED: NITROGLYCERIN 0.4 MG SL TAB SL PRN (12:30)
[2019-09-05] MEDS ORDERED: SODIUM CHL 3% 500 ML IV ONE (12:30)
[2019-09-05] MEDS ORDERED: metOLazone 5 MG TAB PO ONE (13:15)
[2019-09-05] MEDS ORDERED: POTASSIUM CHL 20 Meq TABLET PO ONE (13:15)
[2019-09-05] MEDS ORDERED: SACUBITRIL-VALSARTAN 24mg/26mg TAB PO ONE (13:15)
[2019-09-05] MEDS ORDERED: LEVOTHYROXINE SODIUM 88 MCG TAB PO ONE (13:15)
[2019-09-05] MEDS ORDERED: TORSEMIDE 20 MG TAB PO ONE (13:15)
[2019-09-05] MEDS: GABAPENTIN 400 MG CAP PO SCH ×2 (13:31→21:36)
[2019-09-05] MEDS: ACETAMINOPHEN 500 MG TAB PO PRN ×2 (13:31→21:37)
[2019-09-05 14:00] VITALS: BP 137/52
[2019-09-05] MEDS: cloNIDine HCL 0.1 MG TAB PO SCH ×3 (14:00→21:36)
[2019-09-05 17:00] VITALS: BP 148/59
[2019-09-05] MEDS ORDERED: DOXAZOSIN MESYL 2 MG TAB PO SCH ×2 (18:00→21:00)
[2019-09-05] MEDS: SACUBITRIL-VALSARTAN 24mg/26mg TAB PO SCH (18:20)
[2019-09-05] MEDS: POTASSIUM CHL 20 Meq TABLET PO SCH (18:21)
[2019-09-05] MEDS: TORSEMIDE 20 MG TAB PO SCH (21:36)
[2019-09-05] MEDS ORDERED: ATORVASTATIN 20 MG TAB PO SCH (22:00)
[2019-09-05 22:06] VITALS: BP 144/60
[2019-09-06 02:00] VITALS: BP 150/64
[2019-09-06 05:07] VITALS: BP 111/54
[2019-09-06] MEDS: GABAPENTIN 400 MG CAP PO SCH ×2 (06:20→13:51)
[2019-09-06] MEDS: cloNIDine HCL 0.1 MG TAB PO SCH ×2 (06:20→14:41)
[2019-09-06 06:50] LABS: Basophils # (auto) 0.1 10 ^3/uL (0-0.2); Basophils % (auto) 1.1 % (0.0-2.0); Eosinophils # (auto) 0.1 10 ^3/uL (0-0.8); Eosinophils % (auto) 1.2 % (0.0-7.0); Hematocrit 30.7 % (41.0-53.0); Hemoglobin 10.9 g/dL (13.5-17.5); Lymphocytes # (auto) 1.3 10 ^3/uL (0.4-5.4); Lymphocytes % (auto) 23.6 % (10.0-50.0); Mean Corpuscular Hemoglobin 32.9 pg (28.0-32.0); Mean Corpuscular Hgb Conc. 35.5 g/dL (32.0-36.0); Mean Corpuscular Volume 92.8 fL (80.0-100.0); Monocytes # (auto) 0.6 10 ^3/uL (0-1.3); Monocytes % (auto) 11.3 % (0.0-12.0); Neutrophils # (auto) 3.5 10 ^3/uL (1.6-8.6); Neutrophils % (auto) 62.8 % (37.0-80.0); Nucleated Red Blood Cells % 0.1 %; Platelet Count (auto) 303 10^3/uL (140-450); Red Blood Cells 3.31 10^6/uL (4.5-5.90); Red Cell Distribution Width 13.7 % (11.8-14.3); White Blood Cell 5.5 10^3/uL (4.4-10.8)
[2019-09-06] MEDS ORDERED: LEVOTHYROXINE SODIUM 88 MCG TAB PO SCH (07:00)
[2019-09-06 07:05] LABS: INR 0.99 (0.9-1.15); Partial Thromboplastin Time 29.6 sec (23.64-32.05)
[2019-09-06 07:11] LABS: Potassium 3.9 mmol/L (3.5-5.1)
[2019-09-06 07:15] LABS: BUN/Creatinine Ratio 19.9; Calcium 7.8 mg/dL (8.5-10.1)
[2019-09-06] MEDS: SACUBITRIL-VALSARTAN 24mg/26mg TAB PO SCH (09:33)
[2019-09-06] MEDS: TORSEMIDE 20 MG TAB PO SCH (09:33)
[2019-09-06] MEDS: metOLazone 5 MG TAB PO SCH (09:34)
[2019-09-06] MEDS: POTASSIUM CHL 20 Meq TABLET PO SCH (09:34)
[2019-09-07] MEDS ORDERED: CLOPIDOGREL BISULFATE 75 MG TAB PO SCH (10:00)
== END 2019-09-06 17:25 | disposition home or self-care (01) | DRG 287 ==
LOC: CATH 07:23 → TELE-EAST 14:06
PROVIDERS: ADMIT Internal Medicine Cardiovascular Disease; ATTEND Internal Medicine Cardiovascular Disease
PROC: 4A023N6 Measurement of Cardiac Sampling and Pressure, Right Heart, Percutaneous Approach (ICD-10-PCS; principal; 2019-09-05)
PROC: B2111ZZ Fluoroscopy of Multiple Coronary Arteries using Low Osmolar Contrast (ICD-10-PCS; 2019-09-05)
PROC: B2151ZZ Fluoroscopy of Left Heart using Low Osmolar Contrast (ICD-10-PCS; 2019-09-05)
PROC: B41F1ZZ Fluoroscopy of Right Lower Extremity Arteries using Low Osmolar Contrast (ICD-10-PCS; 2019-09-05)
DX: I50.30 Unspecified diastolic (congestive) heart failure (principal); E87.1 Hypo-osmolality and hyponatremia; J44.9 Chronic obstructive pulmonary disease, unspecified; I10 Essential (primary) hypertension; I35.0 Nonrheumatic aortic (valve) stenosis; I73.9 Peripheral vascular disease, unspecified; I25.10 Atherosclerotic heart disease of native coronary artery without angina pectoris
CPT/HCPCS: 36415; 71046; 80048; 80053; 85025; 85610; 85730; 93005; 93460; 99152; 99153; C1751; G0378; G0463; J2250

== ENCOUNTER → 2019-09-11 | Outpatient (CLI) | payer MEDICARE ==
[~2019-09-11] MED LIST changes: +METO2.5T11 PO
[2019-09-11 08:55] VITALS: BP 156/62
[2019-09-11 10:14] VITALS: BP 174/62
[2019-09-11 11:52] LABS: Basophils # (auto) 0.1 10 ^3/uL (0-0.2); Basophils % (auto) 1.4 % (0.0-2.0); Eosinophils # (auto) 0.1 10 ^3/uL (0-0.8); Eosinophils % (auto) 1.1 % (0.0-7.0); Hematocrit 31.4 % (41.0-53.0); Hemoglobin 11.1 g/dL (13.5-17.5); Lymphocytes # (auto) 1.1 10 ^3/uL (0.4-5.4); Lymphocytes % (auto) 22.3 % (10.0-50.0); Mean Corpuscular Hgb Conc. 35.2 g/dL (32.0-36.0); Mean Corpuscular Volume 93.7 fL (80.0-100.0); Monocytes # (auto) 0.5 10 ^3/uL (0-1.3); Monocytes % (auto) 10.6 % (0.0-12.0); Neutrophils # (auto) 3.2 10 ^3/uL (1.6-8.6); Neutrophils % (auto) 64.6 % (37.0-80.0); Nucleated Red Blood Cells % 0.1 %; Platelet Count (auto) 310 10^3/uL (140-450); Red Blood Cells 3.35 10^6/uL (4.5-5.90); Red Cell Distribution Width 13.6 % (11.8-14.3)
[2019-09-11 12:10] LABS: Albumin 2.1 g/dL (3.4-5.0); Calcium 8.3 mg/dL (8.5-10.1); Magnesium 2.6 mg/dL (1.6-2.6)
[2019-09-11 12:13] LABS: BUN/Creatinine Ratio 19.6; Bilirubin, Total 0.2 mg/dL (0.2-1.0); Total Protein 5.3 g/dL (6.4-8.2)
== END | disposition home or self-care (01) ==
LOC: CHF HDHVI 08:52
PROVIDERS: ATTEND Internal Medicine Cardiovascular Disease
DX: C61 Malignant neoplasm of prostate (principal); I50.9 Heart failure, unspecified; Z79.899 Other long term (current) drug therapy
CPT/HCPCS: 36415; 80053; 83735; 83880; 84153; 85025; G0463

== ENCOUNTER → 2019-09-13 | Outpatient (CLI) | payer MEDICARE ==
[2019-09-13 15:38] LABS: BUN/Creatinine Ratio 17.9; Calcium 8.8 mg/dL (8.5-10.1); Potassium 4.3 mmol/L (3.5-5.1)
== END | disposition home or self-care (01) ==
LOC: LAB 11:28
PROVIDERS: ATTEND Internal Medicine Cardiovascular Disease
DX: I10 Essential (primary) hypertension (principal)
CPT/HCPCS: 36415; 80048

== ENCOUNTER → 2019-10-11 | Outpatient (CLI) | payer MEDICARE ==
[~2019-10-11] MED LIST changes: +BUMETANIDE 1mg/4ml VIAL (0.25mg/ml) ONE; +BUMETANIDE 2.5mg/10ml (0.25 mg/ml) INJ IV ONE; +POTASSIUM CHL 10 Meq TABLET PO ONE
[2019-10-11 11:15] VITALS: BP 180/70
[2019-10-11 11:38] VITALS: BP 183/74
== END | disposition home or self-care (01) ==
LOC: CHF HDHVI 10:51
PROVIDERS: ATTEND Internal Medicine Cardiovascular Disease
DX: R60.9 Edema, unspecified (principal); I11.0 Hypertensive heart disease with heart failure; I50.22 Chronic systolic (congestive) heart failure; J44.9 Chronic obstructive pulmonary disease, unspecified; I73.9 Peripheral vascular disease, unspecified; J90 Pleural effusion, not elsewhere classified; Z79.899 Other long term (current) drug therapy
CPT/HCPCS: 96374; G0463; J3490

== ENCOUNTER → 2019-10-24 | Outpatient (CLI) | payer MEDICARE ==
[~2019-10-24] MED LIST changes: -BUMETANIDE 1mg/4ml VIAL (0.25mg/ml) ONE; -BUMETANIDE 2.5mg/10ml (0.25 mg/ml) INJ IV ONE; +FUROSEMIDE 100 MG/10ML VIAL IV ONE; +FUROSEMIDE 20 MG/2 ML VIAL ONE; +FUROSEMIDE INJECTION 10 ML ONE; +LORazepam 0.5 MG TAB ONE; +LORazepam 0.5 MG TAB PO ONE; +POTASSIUM CHL 20 Meq TABLET PO ONE; +SACU1TAB4 PO
--- NOTE | 2019-10-24 08:40 | NUR ---
PT. TO CHF CLINIC FOR EVAL. AND TX, WITH C/O WORSENING SOB OVER LAST 2 DAYS PT. ALSO C/O FLUID RETENTION TO BILAT. LOWER EXT. PT. WAS SCHEDULED FOR LABS WITH SCHEDULED APPT. WITH DR. JAMES IN AM. ORDERS FOR IV DIURETICS RECEIVED FROM . SEE NSG ASSESS.
--- NOTE | 2019-10-24 09:05 | NUR ---
EKG DONE WITH RESULTS TO DR. JAMES. VERBAL ORDERS TO HOLD PREVIOUS ORDER OF LASIX AND POTASSIUM CARRIED OUT D/T ACUTE SINUS BRADYCARDIA, WITH HR 41-42, WITH NO ECTOPY. PT'S HX SHOW NO PREVIOUS LOW HR, AND NOT ON ANY BETA BLOCKERS FOR HIS MALIGNANT HTN.
[2019-10-24 09:56] LABS: Albumin 1.8 g/dL (3.4-5.0); Calcium 7.5 mg/dL (8.5-10.1); Magnesium 2.5 mg/dL (1.6-2.6); Potassium 4.7 mmol/L (3.5-5.1)
[2019-10-24 09:59] LABS: BUN/Creatinine Ratio 21.3; Bilirubin, Total 0.3 mg/dL (0.2-1.0); Total Protein 4.9 g/dL (6.4-8.2)
--- NOTE | 2019-10-24 10:00 | NUR ---
DR. JAMES AT BEDSIDE FOR EXAM, REVIEWING EKG AND MEDS WITH PT. FURTHER ORDERS RECEIVED TO WORK PT. UP FOR PACEMAKER IMPLANTATION FOR TOMORROW. ADDITIONAL PT. EDUCATION DONE ON DISEASE PROCESS AND SIDE EFFECTS OF THIS BRADYCARDIA EFFECT ON THE BODY INITIATED BY THIS RN, WITH PT. DEMONSTRATING A BETTER UNDERSTANDING.
--- NOTE | 2019-10-24 10:30 | NUR ---
PT. TO AND FROM XRAY. LABS DRAWN AND SENT.
--- NOTE | 2019-10-24 10:54 | NUR ---
MEDS: PT. MEDICATED WITH ATIVAN 0.5MG PO PER DR. JAMES ORDER.
[2019-10-24 11:15] VITALS: BP 170/55
--- NOTE | 2019-10-24 11:15 | NUR ---
Discharge Instructions See e-MAR for any mediations given with this visit. Patient education given on disease process. Patient verbalized understanding. Previous labs reviewed. Patient discharged in stable condition with after care instructions and follow up appointment. PT. GIVEN SPECIFIC INSTRUCTIONS FOR 10/24 PROCEDURE. PT. TO BE AT [facility] AT 11:00 FOR CHECK IN. LIGHT BKFST BY 0600 WITH HIS AM MEDS, WITH PT. TO HOLD PLAVIX, WHICH DR. JAMES IS AWARE THAT PT. TAKES QOD.LAST DOSE THIS AM 0645. PT. GIVEN INDIAN BLANKET WEAVER EXT. FOR ANY FURTHER QUESTIONS AND ALSO HAS THIS RN'S CELL NUMBER FOR ANY CONCERNS.
[2019-10-24 11:57] LABS: Basophils # (auto) 0.1 10 ^3/uL (0-0.2); Eosinophils # (auto) 0.1 10 ^3/uL (0-0.8); Eosinophils % (auto) 1.8 % (0.0-7.0); Lymphocytes # (auto) 1.2 10 ^3/uL (0.4-5.4); Lymphocytes % (auto) 18.5 % (10.0-50.0); Mean Corpuscular Hemoglobin 32.3 pg (28.0-32.0); Mean Corpuscular Hgb Conc. 34.3 g/dL (32.0-36.0); Mean Corpuscular Volume 94.2 fL (80.0-100.0); Monocytes # (auto) 0.6 10 ^3/uL (0-1.3); Monocytes % (auto) 10.4 % (0.0-12.0); Neutrophils # (auto) 4.2 10 ^3/uL (1.6-8.6); Neutrophils % (auto) 68.3 % (37.0-80.0); Nucleated Red Blood Cells % 0.1 %; Platelet Count (auto) 268 10^3/uL (140-450); Red Blood Cells 3.71 10^6/uL (4.5-5.90); Red Cell Distribution Width 13.7 % (11.8-14.3); White Blood Cell 6.2 10^3/uL (4.4-10.8)
[2019-10-24 12:15] LABS: INR 0.96 (0.9-1.15); Partial Thromboplastin Time 32.2 sec (23.64-32.05)
== END | disposition home or self-care (01) ==
LOC: LAB 08:37
PROVIDERS: ATTEND Internal Medicine Cardiovascular Disease
DX: Z01.812 Encounter for preprocedural laboratory examination (principal); I11.0 Hypertensive heart disease with heart failure; I50.22 Chronic systolic (congestive) heart failure; I25.10 Atherosclerotic heart disease of native coronary artery without angina pectoris; I73.9 Peripheral vascular disease, unspecified; I70.0 Atherosclerosis of aorta; R00.1 Bradycardia, unspecified; J44.9 Chronic obstructive pulmonary disease, unspecified; J90 Pleural effusion, not elsewhere classified; I10 Essential (primary) hypertension; Z79.899 Other long term (current) drug therapy
CPT/HCPCS: 36415; 71046; 80053; 83735; 83880; 85025; 85610; 85730; 93005; G0463; J1940

== ENCOUNTER 2019-10-25 07:15 | Inpatient (IN) | payer MEDICARE ==
[~2019-10-25] VITALS: Ht 180.3 cm; Wt 90.1 kg
[~2019-10-25 07:15] MED LIST changes: -FUROSEMIDE 100 MG/10ML VIAL IV ONE; -FUROSEMIDE 20 MG/2 ML VIAL ONE; -FUROSEMIDE INJECTION 10 ML ONE; -LORazepam 0.5 MG TAB ONE; -LORazepam 0.5 MG TAB PO ONE; -POTASSIUM CHL 10 Meq TABLET PO ONE; -POTASSIUM CHL 20 Meq TABLET PO ONE; -SACU1TAB4 PO
[2019-10-25] MEDS ORDERED: SACU1TAB4 PO (07:56)
[2019-10-25] MEDS ORDERED: IODIXANOL 320MG/ML 100ML BTL IV ONE (07:57)
[2019-10-25] MEDS ORDERED: LIDOCAINE 2%HCL (LOCAL ANESTH.) INJ 20ML MDV ONE ×2 (07:57→09:20)
[2019-10-25] MEDS ORDERED: VANCOMYCIN 1GM/250ML 250 ML IV ONE (08:13)
[2019-10-25] MEDS ORDERED: fentaNYL CITRATE 100 MCG/2 ML VL ONE (08:47)
[2019-10-25] MEDS ORDERED: MIDAZOLAM HCL 1MG/1ML-2 ML VIAL ONE (08:47)
[2019-10-25] MEDS ORDERED: VANCOMYCIN HCL 1000 MG VL ONE (08:48)
[2019-10-25] MEDS ORDERED: IOHEXOL 350 MG/ML 100ML IJ ONE (09:20)
[2019-10-25] MEDS ORDERED: FUROSEMIDE 20 MG/2 ML VIAL ONE ×2 (09:34→09:35)
[2019-10-25] MEDS ORDERED: DOBUTamine 1000MCG/ML 250 ML IV SCH (10:45)
[2019-10-25] MEDS ORDERED: ONDANSETRON HCL 4 MG/2 ML VIAL IV PRN (10:45)
[2019-10-25] MEDS ORDERED: MORPHINE SULF INJ 2 MG/ML SYRINGE 1ML IV PRN (10:45)
[2019-10-25] MEDS ORDERED: NITROGLYCERIN 0.4 MG SL TAB SL PRN (10:45)
[2019-10-25] MEDS ORDERED: cloNIDine 0.2 mg/24hr 7DAY PATCH TD SCH (10:45)
[2019-10-25] MEDS ORDERED: ACETAMINOPHEN 325 MG TAB PO PRN (10:45)
[2019-10-25] MEDS ORDERED: SACUBITRIL-VALSARTAN 24mg/26mg TAB PO ONE (11:15)
[2019-10-25] MEDS ORDERED: POTASSIUM CHL 20 Meq TABLET PO ONE (11:15)
[2019-10-25] MEDS: ceFAZolin 1GM/50ML 50 ML IV SCH ×2 (11:30→18:52)
[2019-10-25] MEDS ORDERED: DOBUTamine 1000MCG/ML 250 ML IV ONE (11:45)
[2019-10-25] MEDS: cloNIDine HCL 0.1 MG TAB PO PRN (11:55)
[2019-10-25] MEDS: FUROSEMIDE INJECTION 100 MG in SODIUM CHL 0.9% 100 ML IV SCH ×3 (12:45→20:45)
[2019-10-25] MEDS: DOBUTamine 1000MCG/ML 250 ML IV SCH ×2 (13:24→23:04)
--- NOTE | 2019-10-25 13:24 | NUR ---
Telemetry admit from Chopper Gun Operator PRANAV BRITO JR admitted to Telemetry unit after SBAR received from BRIJESH Galicia. Patient oriented to Ely Bocanegra RN primary RN, unit, room, bed, and unit policies regarding patient care and visiting hours. Patient now on continuous telemetry monitoring, tele box # [id number] and telemetry reading on arrival to unit is paced 74 heart rate. Patient placed on bedside oxygen, weighed by bedscale and encouraged to call if they need something. All questions and concerns addressed, patient verbalized understanding. Noted left upper chest incision covered with dressing and is C/D/I, patient's left arm is in a sling and ice pack is applied to left shoulder. Patient instructed to not reach or pull with left upper extremity. Patient verbalized understanding.
[2019-10-25 13:30] VITALS: BP 144/64
[2019-10-25] MEDS: cloNIDine HCL 0.1 MG TAB PO SCH ×2 (14:00→21:35)
[2019-10-25] MEDS: GABAPENTIN 400 MG CAP PO SCH ×2 (14:23→21:34)
[2019-10-25 17:00] VITALS: BP 137/54
[2019-10-25] MEDS ORDERED: DOXAZOSIN MESYL 2 MG TAB PO SCH (18:00)
[2019-10-25 19:04] LABS: BUN/Creatinine Ratio 21.2; Calcium 7.8 mg/dL (8.5-10.1); Potassium 4.4 mmol/L (3.5-5.1)
--- NOTE | 2019-10-25 19:26 | NUR ---
Care endorsed to NOC RN
--- NOTE | 2019-10-25 19:32 | NUR ---
Opening Shift Note Received report and assumed care of patient. Patient is awake and alert. No signs or symptoms of distress noted. Instructed patient on plan of care and to call for assistance as needed. Will continue to monitor.
[2019-10-25] MEDS ORDERED: HYDROmorphone HCL 2 MG/ML VL IV PRN (20:45)
[2019-10-25] MEDS: HYDROcodone-ACET 5/325MG TAB PO PRN (21:25)
--- NOTE | 2019-10-25 21:25 | NUR ---
Pain Medication Administration Patient complaining of incisional pain 02/26. Patient requesting norco 5mg PO to be given. Explained pain medications and pain level scale, patient verbalized understanding. Will administer pain medication and will continue to monitor.
[2019-10-25] MEDS: SACUBITRIL-VALSARTAN 24mg/26mg TAB PO SCH (21:33)
[2019-10-25] MEDS: POTASSIUM CHL 20 Meq TABLET PO SCH (21:34)
[2019-10-25] MEDS: ATORVASTATIN 20 MG TAB PO SCH (21:34)
[2019-10-25] MEDS: DOXAZOSIN MESYL 2 MG TAB PO SCH (21:34)
[2019-10-25 22:00] VITALS: BP 163/57
[2019-10-25] MEDS ORDERED: POTASSIUM CHL 20 Meq TABLET PO SCH (22:00)
--- NOTE | 2019-10-25 22:25 | NUR ---
Pain Level Reassessment Patient pain level reassessed to be 0/10. Provided patient with ice pack. Will continue to monitor.
[2019-10-26] MEDS: FUROSEMIDE INJECTION 100 MG in SODIUM CHL 0.9% 100 ML IV SCH ×3 (02:03→12:07)
[2019-10-26] MEDS: ceFAZolin 1GM/50ML 50 ML IV SCH ×3 (02:58→18:30)
[2019-10-26 05:00] VITALS: BP 156/63
[2019-10-26] MEDS: POTASSIUM CHL 20 Meq TABLET PO SCH ×3 (06:46→22:01)
[2019-10-26] MEDS: LEVOTHYROXINE SODIUM 88 MCG TAB PO SCH (06:47)
[2019-10-26] MEDS: GABAPENTIN 400 MG CAP PO SCH ×3 (06:47→21:59)
[2019-10-26] MEDS: cloNIDine HCL 0.1 MG TAB PO SCH ×3 (06:47→17:53)
[2019-10-26 07:10] LABS: Basophils # (auto) 0 10 ^3/uL (0-0.2); Basophils % (auto) 0.7 % (0.0-2.0); Eosinophils # (auto) 0.1 10 ^3/uL (0-0.8); Eosinophils % (auto) 1.2 % (0.0-7.0); Hematocrit 31.2 % (41.0-53.0); Hemoglobin 10.9 g/dL (13.5-17.5); Lymphocytes # (auto) 1.1 10 ^3/uL (0.4-5.4); Lymphocytes % (auto) 16.7 % (10.0-50.0); Mean Corpuscular Hemoglobin 32.6 pg (28.0-32.0); Mean Corpuscular Hgb Conc. 35.1 g/dL (32.0-36.0); Mean Corpuscular Volume 93.1 fL (80.0-100.0); Monocytes # (auto) 0.6 10 ^3/uL (0-1.3); Monocytes % (auto) 9.2 % (0.0-12.0); Neutrophils # (auto) 4.6 10 ^3/uL (1.6-8.6); Neutrophils % (auto) 72.2 % (37.0-80.0); Nucleated Red Blood Cells % 0.1 %; Platelet Count (auto) 274 10^3/uL (140-450); Red Blood Cells 3.35 10^6/uL (4.5-5.90); Red Cell Distribution Width 13.6 % (11.8-14.3); White Blood Cell 6.3 10^3/uL (4.4-10.8)
[2019-10-26 07:41] LABS: Calcium 7.6 mg/dL (8.5-10.1); Potassium 4.4 mmol/L (3.5-5.1)
--- NOTE | 2019-10-26 07:50 | NUR ---
Opening Shift Note Assumed care of patient, awake and alert, sitting up in bed eating breakfast. No S/S of distress/SOB or pain. Instructed on POC and to call for assist PRN, will continue to monitor for changes Q1hr and PRN.
[2019-10-26] MEDS: SACUBITRIL-VALSARTAN 24mg/26mg TAB PO SCH ×2 (09:36→22:00)
[2019-10-26] MEDS: DOBUTamine 1000MCG/ML 250 ML IV SCH ×2 (09:37→19:43)
[2019-10-26 13:00] VITALS: BP_SYST 145; BP_SYST 161; BP_DIAS 66; BP_DIAS 78
[2019-10-26] MEDS ORDERED: SODIUM CHL 3% 500 ML IV ONE (13:15)
[2019-10-26 17:00] VITALS: BP 192/78
[2019-10-26] MEDS: HYDROcodone-ACET 5/325MG TAB PO PRN ×3 (17:53→23:39)
--- NOTE | 2019-10-26 19:30 | NUR ---
Opening Shift Note Received report from Maggie COLEY. Assumed care of patient, awake and alert. No S/S of distress/SOB or pain. Instructed on POC and to call for assist PRN, will continue to monitor for changes Q1hr and PRN.
[2019-10-26] MEDS: DOXAZOSIN MESYL 2 MG TAB PO SCH (21:31)
[2019-10-26] MEDS: ATORVASTATIN 20 MG TAB PO SCH (22:00)
[2019-10-26] MEDS: cloNIDine HCL 0.1 MG TAB PO PRN (22:20)
--- NOTE | 2019-10-26 22:20 | NUR ---
Patient blood pressure is 182/69 with pain at 6/10, Clonidine 1 mg PO and [place] 1 tab given, will reassess after 1 hour.
[2019-10-26 23:13] VITALS: BP 181/73
--- NOTE | 2019-10-26 23:42 | NUR ---
Latest BP is 162/69 and 0 pain, will continue to monitor.
[2019-10-27] VITALS (7 sets, daily range): BP systolic 142–207; BP diastolic 69–85
[2019-10-27] MEDS: FUROSEMIDE INJECTION 100 MG in SODIUM CHL 0.9% 100 ML IV SCH ×5 (01:53→22:30)
[2019-10-27] MEDS: ceFAZolin 1GM/50ML 50 ML IV SCH ×3 (02:53→18:24)
[2019-10-27] MEDS: DOBUTamine 1000MCG/ML 250 ML IV SCH ×2 (06:22→15:50)
[2019-10-27] MEDS: GABAPENTIN 400 MG CAP PO SCH ×3 (06:24→22:25)
[2019-10-27] MEDS: LEVOTHYROXINE SODIUM 88 MCG TAB PO SCH (06:24)
[2019-10-27] MEDS: POTASSIUM CHL 20 Meq TABLET PO SCH ×3 (06:24→22:26)
[2019-10-27] MEDS: cloNIDine HCL 0.1 MG TAB PO SCH ×3 (06:25→22:27)
[2019-10-27 07:11] LABS: Potassium 5.2 mmol/L (3.5-5.1)
[2019-10-27 07:26] LABS: Albumin 1.6 g/dL (3.4-5.0); BUN/Creatinine Ratio 22.2; Bilirubin, Total 0.1 mg/dL (0.2-1.0); Calcium 7.5 mg/dL (8.5-10.1); Total Protein 4.6 g/dL (6.4-8.2)
--- NOTE | 2019-10-27 07:40 | NUR ---
Opening Shift Note Assumed care of patient, awake and alert. No S/S of distress/SOB or pain. IV to right forearm with dobutamine drip, and Lasix drip to left AC. Instructed on POC and to call for assist PRN, will continue to monitor for changes Q1hr and PRN.
[2019-10-27] MEDS: SACUBITRIL-VALSARTAN 24mg/26mg TAB PO SCH ×2 (09:27→22:24)
[2019-10-27] MEDS: cloNIDine HCL 0.1 MG TAB PO PRN (18:57)
[2019-10-27] MEDS: DOXAZOSIN MESYL 2 MG TAB PO SCH (20:56)
--- NOTE | 2019-10-27 21:12 | NUR ---
Spoke to Dr. Kirkland re: patient's concern about the increasing blood pressure, MD ordered Procardia XL 60mg PO now then BID. Order carried out and followed through.
[2019-10-27] MEDS ORDERED: NIFEdipine ER 30 MG TAB PO ONE (21:15)
[2019-10-27] MEDS ORDERED: NIFEdipine ER 30 MG TAB PO SCH (22:00)
[2019-10-27] MEDS: ATORVASTATIN 20 MG TAB PO SCH (22:26)
[2019-10-27] MEDS: HYDROcodone-ACET 5/325MG TAB PO PRN (22:26)
[2019-10-28] MEDS: DOBUTamine 1000MCG/ML 250 ML IV SCH ×3 (02:05→17:10)
[2019-10-28] MEDS: ceFAZolin 1GM/50ML 50 ML IV SCH (03:06)
[2019-10-28 05:13] VITALS: BP 147/64
[2019-10-28] MEDS: FUROSEMIDE INJECTION 100 MG in SODIUM CHL 0.9% 100 ML IV SCH ×4 (05:30→21:00)
[2019-10-28] MEDS: POTASSIUM CHL 20 Meq TABLET PO SCH ×3 (06:29→21:52)
[2019-10-28] MEDS: GABAPENTIN 400 MG CAP PO SCH ×3 (06:29→21:52)
[2019-10-28] MEDS: LEVOTHYROXINE SODIUM 88 MCG TAB PO SCH (06:29)
[2019-10-28] MEDS: cloNIDine HCL 0.1 MG TAB PO SCH ×3 (06:29→21:52)
[2019-10-28 08:00] VITALS: BP 98/50
[2019-10-28 09:00] VITALS: BP 98/50
[2019-10-28] MEDS ORDERED: NIFEdipine ER 30 MG TAB PO SCH (10:00)
[2019-10-28] MEDS: SACUBITRIL-VALSARTAN 24mg/26mg TAB PO SCH ×2 (10:35→21:52)
[2019-10-28] MEDS: NIFEdipine ER 30 MG TAB PO SCH ×2 (11:00→21:53)
[2019-10-28 11:04] LABS: Potassium 5.1 mmol/L (3.5-5.1)
[2019-10-28 11:07] LABS: BUN/Creatinine Ratio 22.7
[2019-10-28 13:00] VITALS: BP 105/57
[2019-10-28 17:04] VITALS: BP 159/69
--- NOTE | 2019-10-28 19:40 | NUR ---
Opening Shift Note Assumed care of patient, awake and alert. Fall and safety precautions in place. Call light within reach and able to use. No S/S of distress/SOB or pain. Instructed on POC and to call for assist PRN, patient verbalized understanding and in agreement. Will continue to monitor for changes Q1hr and PRN.
[2019-10-28] MEDS: DOXAZOSIN MESYL 2 MG TAB PO SCH (21:14)
[2019-10-28 21:37] VITALS: BP 160/71
[2019-10-28] MEDS: ATORVASTATIN 20 MG TAB PO SCH (21:52)
[2019-10-28] MEDS: HYDROcodone-ACET 5/325MG TAB PO PRN (21:55)
[2019-10-29] MEDS: FUROSEMIDE INJECTION 100 MG in SODIUM CHL 0.9% 100 ML IV SCH ×5 (00:40→21:10)
[2019-10-29] MEDS: DOBUTamine 1000MCG/ML 250 ML IV SCH ×3 (00:41→17:00)
[2019-10-29 04:39] VITALS: BP 151/66
[2019-10-29] MEDS: GABAPENTIN 400 MG CAP PO SCH ×3 (05:24→21:11)
[2019-10-29] MEDS: cloNIDine HCL 0.1 MG TAB PO SCH ×3 (05:24→21:11)
[2019-10-29] MEDS: LEVOTHYROXINE SODIUM 88 MCG TAB PO SCH (06:17)
[2019-10-29] MEDS: LACTULOSE 20Gm/30ML SOLN PO PRN ×2 (06:17→18:14)
--- NOTE | 2019-10-29 08:00 | NUR ---
OPENING SHIFT NOTE ASSUMED CARE OF PATIENT AWAKE AND ALERT. NO S/S OF DISTRESS NOTED OR COMPLAINTS OF PAIN. PATIENT UPDATED ON POC FOR THE DAY AND ALL QUESTIONS ANSWERED. BED IS IN LOWEST, LOCKED POSITION WITH SIDE RAILS UP X2 AND CALL LIGHT WITHIN REACH. WILL CONTINUE TO MONITOR Q1H AND PRN.
[2019-10-29 08:59] LABS: BUN/Creatinine Ratio 20.8; Calcium 7.8 mg/dL (8.5-10.1); Potassium 4.5 mmol/L (3.5-5.1)
[2019-10-29 09:00] VITALS: BP 102/50
[2019-10-29] MEDS: NIFEdipine ER 30 MG TAB PO SCH ×2 (10:00→21:12)
[2019-10-29] MEDS: SACUBITRIL-VALSARTAN 24mg/26mg TAB PO SCH ×2 (10:32→21:11)
--- NOTE | 2019-10-29 11:21 | NUR ---
IV's UPON ASSESSMENT THIS RN NOTICED SWELLING OF LEFT FOREARM AND HAND DISTAL TO LEFT ANTECUBITAL IV. IV REMOVED WITH CATHETER INTACT AND PRESSURE DRESSING APPLIED. NEW IV ACCESS OBTAIN IN RIGHT FOREARM WITH A 20GAUGE CATHETER VIA CLEAN TECHNIQUE. PATIENT TOLERATED WELL.
--- NOTE | 2019-10-29 11:28 | NUR ---
Est energy needs [id number] (25-30 kcal/kg IBW) Est protein needs 62-78 (0.8-1g/kg) Addendum: 10/29/19 at [address] Amended: Links added.
[2019-10-29 13:00] VITALS: BP 138/65
--- NOTE | 2019-10-29 14:41 | NUR ---
AT BEDSIDE DR JAMES ROUNDING ON PATIENT.
[2019-10-29] MEDS: DOXAZOSIN MESYL 2 MG TAB PO SCH (21:10)
[2019-10-29] MEDS: ATORVASTATIN 20 MG TAB PO SCH (21:11)
[2019-10-29] MEDS: HYDROcodone-ACET 5/325MG TAB PO PRN (21:12)
[2019-10-29 22:00] VITALS: BP 151/71
[2019-10-30 05:00] VITALS: BP 145/66
[2019-10-30] MEDS: FUROSEMIDE INJECTION 100 MG in SODIUM CHL 0.9% 100 ML IV SCH ×4 (05:25→18:00)
[2019-10-30] MEDS: LEVOTHYROXINE SODIUM 88 MCG TAB PO SCH (06:07)
[2019-10-30] MEDS: cloNIDine HCL 0.1 MG TAB PO SCH ×2 (06:07→14:30)
[2019-10-30] MEDS: GABAPENTIN 400 MG CAP PO SCH ×2 (06:07→14:28)
[2019-10-30 06:19] LABS: Basophils # (auto) 0.1 10 ^3/uL (0-0.2); Basophils % (auto) 1.2 % (0.0-2.0); Eosinophils # (auto) 0.2 10 ^3/uL (0-0.8); Eosinophils % (auto) 3.4 % (0.0-7.0); Hematocrit 30.7 % (41.0-53.0); Hemoglobin 10.8 g/dL (13.5-17.5); Lymphocytes # (auto) 1.4 10 ^3/uL (0.4-5.4); Lymphocytes % (auto) 23.9 % (10.0-50.0); Mean Corpuscular Hemoglobin 32.6 pg (28.0-32.0); Mean Corpuscular Hgb Conc. 35.1 g/dL (32.0-36.0); Mean Corpuscular Volume 92.8 fL (80.0-100.0); Monocytes # (auto) 0.6 10 ^3/uL (0-1.3); Neutrophils # (auto) 3.6 10 ^3/uL (1.6-8.6); Neutrophils % (auto) 61.5 % (37.0-80.0); Platelet Count (auto) 307 10^3/uL (140-450); Red Blood Cells 3.31 10^6/uL (4.5-5.90); Red Cell Distribution Width 13.6 % (11.8-14.3); White Blood Cell 5.8 10^3/uL (4.4-10.8)
[2019-10-30 06:39] LABS: Albumin 1.7 g/dL (3.4-5.0); Potassium 3.7 mmol/L (3.5-5.1)
[2019-10-30 06:41] LABS: BUN/Creatinine Ratio 23.9
[2019-10-30 06:44] LABS: Bilirubin, Total 0.2 mg/dL (0.2-1.0); Total Protein 4.9 g/dL (6.4-8.2)
--- NOTE | 2019-10-30 07:28 | NUR ---
RECEIVED PATIENT FROM OUTGOING NOC SHIFT RN, AWAKE, ALERT AND ORIENTED X4. PATIENT SITTING UP IN CHAIR. DENIES PAIN, NO SOB OR S/S DISTRESS NOTED. PLAN OF CARE DISCUSSED. BED IN LOWEST AND LOCKED POSITION. ENCOURAGED TO CALL FOR ASSISTANCE PRN. WILL CONTINUE TO MONITOR Q1HR AND PRN.
[2019-10-30 08:00] VITALS: BP 117/51
[2019-10-30 09:00] VITALS: BP 117/51
[2019-10-30] MEDS: SACUBITRIL-VALSARTAN 24mg/26mg TAB PO SCH (09:10)
[2019-10-30] MEDS: NIFEdipine ER 30 MG TAB PO SCH (09:11)
[2019-10-30] MEDS: DOBUTamine 1000MCG/ML 250 ML IV SCH (12:05)
[2019-10-30 13:00] VITALS: BP 149/66
--- NOTE | 2019-10-30 13:00 | NUR ---
IV INFILTRATION NOTED. WILL RESUME IV MEDICATION ONCE PATENT LINE IS ESTABLISHED
[2019-10-30 17:47] VITALS: BP 149/66
--- NOTE | 2019-10-30 17:55 | NUR ---
DR JAMES CONTACTED REGARDING DISCHARGE MEDICATION DOSAGE TO BE CALLED IN TO PATIENT'S PHARMACY. AWAITING RESPONSE.
--- NOTE | 2019-10-30 18:00 | NUR ---
PATIENT REFUSED 1800 LASIX DUE TO BEING DISCHARGE.
--- NOTE | 2019-10-30 20:01 | NUR ---
Discharge Patient is alert and oriented x4. Explained discharge instructions to patient, patient verbalized understanding. Patient provided with discharge packet, all questions answered. Discontinued 22g IV to the Right upper arm and 20g IV to the Right forearm. Tele box removed. Patient refusing wheelchair to be walked out, patient ambulated off floor at 2001.
== END 2019-10-30 20:05 | disposition home or self-care (01) | DRG 242 ==
LOC: CATH 07:15 → TELE-WESTW 14:10
PROVIDERS: ADMIT Internal Medicine Cardiovascular Disease; ATTEND Internal Medicine Cardiovascular Disease
PROC: 0JH606Z Insertion of Pacemaker, Dual Chamber into Chest Subcutaneous Tissue and Fascia, Open Approach (ICD-10-PCS; principal; 2019-10-28)
PROC: 02HK3JZ Insertion of Pacemaker Lead into Right Ventricle, Percutaneous Approach (ICD-10-PCS; 2019-10-28)
PROC: 02H63JZ Insertion of Pacemaker Lead into Right Atrium, Percutaneous Approach (ICD-10-PCS; 2019-10-28)
PROC: B5171ZZ Fluoroscopy of Left Subclavian Vein using Low Osmolar Contrast (ICD-10-PCS; 2019-10-28)
DX: I11.0 Hypertensive heart disease with heart failure (principal); I50.31 Acute diastolic (congestive) heart failure; E87.1 Hypo-osmolality and hyponatremia; I49.5 Sick sinus syndrome; J44.9 Chronic obstructive pulmonary disease, unspecified; D64.9 Anemia, unspecified; I73.9 Peripheral vascular disease, unspecified; E78.5 Hyperlipidemia, unspecified; I35.0 Nonrheumatic aortic (valve) stenosis; Z79.899 Other long term (current) drug therapy; I25.5 Ischemic cardiomyopathy
CPT/HCPCS: 33208; 36415; 71045; 71046; 80048; 80053; 83735; 83880; 85025; 85610; 85730; 93005; 99152; 99153; C1785; G0378; G0463; J0690; J2250; Q9967

== ENCOUNTER → 2019-10-31 | Outpatient (CLI) | payer MEDICARE ==
[2019-10-31] VITALS (11 sets, daily range): BP systolic 126–166; BP diastolic 55–73
[~2019-10-31] MED LIST changes: +FUROSEMIDE INJECTION 10 ML ONE; +FUROSEMIDE INJECTION 100 MG in SODIUM CHL 0.9% 100 ML IV ONE; +POTASSIUM CHL 20 Meq TABLET PO ONE; +SACU1TAB4 PO; -SACU1TAB7 PO
--- NOTE | 2019-10-31 09:49 | NUR ---
CHF PT ARRIVED TO THE CHF CLINIC FOR EVAL AND TREATMENT. A/O X4. PT WAS DISCHARGED FROM THE HOSPITAL LAST NIGHT AFTER PACEMAKER INSERTION ON 10/25/19 WITH ORDERS FROM MD JAMES TO REPORT TO THE CHF CLINIC TODAY FOR TREATMENT AND EVAL. PT HAS 3+ PITTING EDEMA TO THE UPPER AND LOWER EXTREMITIES. DISCUSSED WITH MD JAMES AND NEW ORDERS GIVEN AND CARRIED OUT. SEE EMAR FOR MEDICATIONS GIVEN AT VISIT.
--- NOTE | 2019-10-31 10:22 | NUR ---
IV insertion IV access obtained, via clean sterile technique by inserting 22 gauge catheter at BARRERA after 1 attempt(s). IV secured properly. No trauma to site. Patient tolerated procedure well. NOTE INSERTED BY BIJAL COLEY
--- NOTE | 2019-10-31 10:32 | NUR ---
LASIX DRIP STARTED @ 20ML/HR PER MD ORDERS. VSS. WILL CONTINUE TO MONITOR.
--- NOTE | 2019-10-31 13:10 | NUR ---
PT TOLERATING LASIX DRIP. IV SITE BENIGN. VSS. WILL CONTINUE TO MONITOR.
--- NOTE | 2019-10-31 15:09 | NUR ---
Discharge Instructions See e-MAR for any mediations given with this visit. Patient education given on disease process. Patient verbalized understanding. Previous labs reviewed. Patient discharged in stable condition with after care instructions and follow up appointment. PT WILL RETURN TO CLINIC TOMORROW AT 0800 FOR TREATMENT AND EVAL PER MD ORDERS. IV FLUSHED WITH 300 UNITS OF HEPARIN, SITE BENIGN AND SECURED IN PLACE WITH CURO CAP ON PORT. PT WAS EDUCATED TO GET SITE DRY AND SECURED. . PT TO HOLD TORSEMIDE PER MD ORDERS. PT VERBALIZED UNDERSTANDING. VSS NOTE LASIX IV [id number] ADMIN BY BIJAL COLEY K+ PO ADMIN BY BIJAL COLEY
== END | disposition home or self-care (01) ==
LOC: CHF HDHVI 09:52
PROVIDERS: ATTEND Internal Medicine Cardiovascular Disease
DX: I11.0 Hypertensive heart disease with heart failure (principal); I50.22 Chronic systolic (congestive) heart failure; I25.10 Atherosclerotic heart disease of native coronary artery without angina pectoris; I73.9 Peripheral vascular disease, unspecified; J44.9 Chronic obstructive pulmonary disease, unspecified; E11.9 Type 2 diabetes mellitus without complications; E78.5 Hyperlipidemia, unspecified; J90 Pleural effusion, not elsewhere classified; R53.83 Other fatigue; Z79.899 Other long term (current) drug therapy
CPT/HCPCS: 96365; 96366; G0463; J1940

== ENCOUNTER → 2019-11-01 | Outpatient (CLI) | payer MEDICARE ==
[2019-11-01] VITALS (12 sets, daily range): BP systolic 98–128; BP diastolic 47–69
[~2019-11-01] VITALS: Ht 30.5 cm; Wt 81.4 kg
[~2019-11-01] MED LIST changes: +ALBUMIN 25% 100 ML IV ONE; +MAGNESIUM CITRATE SOLUTION 300 ML BTL ONE; +MAGNESIUM CITRATE SOLUTION 300 ML BTL PO ONE; -POTASSIUM CHL 20 Meq TABLET PO ONE
--- NOTE | 2019-11-01 08:14 | NUR ---
CHF PT ARRIVED TO THE CHF CLINIC FOR LASIX INFUSION PER ORDERS. PER MD AMIN ORDERS PT IS TO HAVE STAT LABS THEN ALBUMIN INFUSION FIRST FOLLOWED BY LASIX. PT ARRIVED TO CLINIC WITH IV SECURED IN PLACE. IV DATED 10/31/19. IV FLUSHED GOOD WITH NO SIGNS OF INFILTRATION. PT HAS 2.5 LB WT GAIN FROM DISCHARGE WT YESTERDAY. MD NOTIFIED OF CURRENT CHANGES AND MD ORDERS CARRIED OUT. SEE EMAR FOR ORDERS.
--- NOTE | 2019-11-01 08:44 | NUR ---
ALBUMIN INFUSION STARTED @ 200ML/HR PER MD ORDERS. VSS. WILL CONTINUE TO MONITOR.
--- NOTE | 2019-11-01 09:16 | NUR ---
LASIX DRIP STARTED @ 25/ML HR PER MD ORDERS. B/P 116/53. WILL CONTINUE TO MONITOR.
--- NOTE | 2019-11-01 09:33 | NUR ---
B/P 98/47. PT STATED HE TOOK HIS ENTRESTO, PROCARDIA, AND CLONIDINE IN AM. LASIX INFUSION DECREASED TO 10ML/HR PER MD ORDERS. WILL CONTINUE TO MONITOR.
[2019-11-01 09:42] LABS: Basophils # (auto) 0.1 10 ^3/uL (0-0.2); Basophils % (auto) 1.1 % (0.0-2.0); Eosinophils # (auto) 0.1 10 ^3/uL (0-0.8); Eosinophils % (auto) 2.7 % (0.0-7.0); Hematocrit 30.1 % (41.0-53.0); Hemoglobin 10.5 g/dL (13.5-17.5); Lymphocytes # (auto) 0.9 10 ^3/uL (0.4-5.4); Mean Corpuscular Hgb Conc. 35.1 g/dL (32.0-36.0); Mean Corpuscular Volume 94.1 fL (80.0-100.0); Monocytes # (auto) 0.6 10 ^3/uL (0-1.3); Monocytes % (auto) 10.7 % (0.0-12.0); Neutrophils # (auto) 3.5 10 ^3/uL (1.6-8.6); Neutrophils % (auto) 67.5 % (37.0-80.0); Platelet Count (auto) 308 10^3/uL (140-450); Red Cell Distribution Width 13.6 % (11.8-14.3); White Blood Cell 5.3 10^3/uL (4.4-10.8)
[2019-11-01 09:51] LABS: Albumin 1.9 g/dL (3.4-5.0); Calcium 7.6 mg/dL (8.5-10.1); Potassium 4.5 mmol/L (3.5-5.1)
[2019-11-01 09:55] LABS: BUN/Creatinine Ratio 21.6; Bilirubin, Total 0.2 mg/dL (0.2-1.0)
--- NOTE | 2019-11-01 11:59 | NUR ---
PT TOLERATING LASIX DRIP. VSS. WILL CONTINUE TO MONITOR.
--- NOTE | 2019-11-01 14:27 | NUR ---
IV removal IV DC'd with sterile technique, catheter fully intact. Pressure dressing applied to site. Patient tolerated procedure well. Discharged with aftercare instructions per MD. NOTE: REMOVED BY BIJAL COLEY
--- NOTE | 2019-11-01 14:40 | NUR ---
Discharge Instructions See e-MAR for any mediations given with this visit. Patient education given on disease process. Patient verbalized understanding. Previous labs reviewed. Patient discharged in stable condition with after care instructions and follow up appointment. PT SCHEDULED TO RETURN TO CLINIC ON MONDAY FOR F/U AND TREATMENT PER MD ORDERS. PT TO RESTART TORSEMIDE TOMORROW. PT TO HOLD PO SCHEDULED CLONIDINE AND USE ONLY PRN IF SBP IS GREATER THAN 160mmHg. PT VERBALIZED UNDERSTANDING. NOTE ALBUMIN IV [id number] ADMIN BY CICI COLEY LASIX IV [id number] ADMIN BY CICI COLEY MAGNESIUM CITRATE ADMIN BY BIJAL COLEY
--- NOTE | 2019-11-01 14:48 | NUR ---
PT COMPLAINED OF CONSTIPATION PER MD ORDER MAGNESIUM CITRATE ADMINISTERED TO PATIENT.
== END | disposition home or self-care (01) ==
LOC: CHF HDHVI 08:18
PROVIDERS: ATTEND Internal Medicine Cardiovascular Disease
DX: I11.0 Hypertensive heart disease with heart failure (principal); I50.22 Chronic systolic (congestive) heart failure; I25.10 Atherosclerotic heart disease of native coronary artery without angina pectoris; J44.9 Chronic obstructive pulmonary disease, unspecified; I73.9 Peripheral vascular disease, unspecified; R53.83 Other fatigue; E78.5 Hyperlipidemia, unspecified; J90 Pleural effusion, not elsewhere classified; E11.9 Type 2 diabetes mellitus without complications; Z79.899 Other long term (current) drug therapy
CPT/HCPCS: 36415; 80053; 83880; 85025; 96365; 96366; 96367; G0463; J1940; P9047

== ENCOUNTER → 2019-11-04 | Outpatient (CLI) | payer MEDICARE ==
[~2019-11-04] VITALS: Ht 30.5 cm; Wt 78.2 kg
[~2019-11-04] MED LIST changes: +FUROSEMIDE 100 MG/10ML VIAL IV ONE; -FUROSEMIDE INJECTION 100 MG in SODIUM CHL 0.9% 100 ML IV ONE; -MAGNESIUM CITRATE SOLUTION 300 ML BTL ONE; -MAGNESIUM CITRATE SOLUTION 300 ML BTL PO ONE; +POTASSIUM CHL 20 Meq TABLET PO ONE; +SODIUM CHLORIDE 0.9% 100 ML IV ONE
[2019-11-04 09:19] LABS: Basophils # (auto) 0.1 10 ^3/uL (0-0.2); Basophils % (auto) 1.3 % (0.0-2.0); Eosinophils # (auto) 0.2 10 ^3/uL (0-0.8); Eosinophils % (auto) 2.2 % (0.0-7.0); Hematocrit 34.3 % (41.0-53.0); Hemoglobin 11.7 g/dL (13.5-17.5); Lymphocytes # (auto) 1.6 10 ^3/uL (0.4-5.4); Mean Corpuscular Hemoglobin 31.8 pg (28.0-32.0); Mean Corpuscular Hgb Conc. 34.1 g/dL (32.0-36.0); Mean Corpuscular Volume 93.2 fL (80.0-100.0); Monocytes # (auto) 0.8 10 ^3/uL (0-1.3); Neutrophils # (auto) 4.4 10 ^3/uL (1.6-8.6); Neutrophils % (auto) 62.5 % (37.0-80.0); Nucleated Red Blood Cells % 0.1 %; Platelet Count (auto) 388 10^3/uL (140-450); Red Blood Cells 3.68 10^6/uL (4.5-5.90); Red Cell Distribution Width 13.2 % (11.8-14.3)
[2019-11-04 09:37] LABS: BUN/Creatinine Ratio 22.2; Calcium 8.4 mg/dL (8.5-10.1); Potassium 4.4 mmol/L (3.5-5.1)
[2019-11-04 09:50] VITALS: BP 139/65
[2019-11-04 10:15] VITALS: BP 144/67
[2019-11-04 10:45] VITALS: BP 158/64
[2019-11-04 14:00] LABS: Albumin 2.5 g/dL (3.4-5.0); Bilirubin, Direct < 0.1 mg/dL (0-0.2)
[2019-11-04 14:03] LABS: Alanine Aminotransferase 26 U/L (16-61); Alkaline Phosphatase 107 U/L (45-117); Aspartate Aminotransferase 30 U/L (15-37); Bilirubin, Total 0.4 mg/dL (0.2-1.0); Total Protein 5.9 g/dL (6.4-8.2)
[2019-11-04 14:33] VITALS: BP 143/79
== END | disposition home or self-care (01) ==
LOC: CHF HDHVI 08:42
PROVIDERS: ATTEND Internal Medicine Cardiovascular Disease
DX: I50.9 Heart failure, unspecified (principal); Z79.899 Other long term (current) drug therapy
CPT/HCPCS: 36415; 80048; 80076; 83880; 85025; 96365; 96366; 96367; G0463; J1940; P9047

== ENCOUNTER → 2019-11-05 | Outpatient (CLI) | payer MEDICARE ==
[2019-11-05] VITALS (9 sets, daily range): BP systolic 116–129; BP diastolic 53–61
[~2019-11-05] MED LIST changes: +CYANOCOBALAMIN (B-12) 1000 MCG/1 ML VIAL IM ONE; +CYANOCOBALAMIN (B-12) 1000 MCG/1 ML VIAL ONE; -FUROSEMIDE 100 MG/10ML VIAL IV ONE; +FUROSEMIDE INJECTION 100 MG in SODIUM CHL 0.9% 100 ML IV ONE; +TESTOSTERONE CYPIONATE 200 MG/ML 1ML VIAL IM ONE
[2019-11-05 09:43] LABS: Albumin 2.4 g/dL (3.4-5.0); Potassium 4.3 mmol/L (3.5-5.1)
[2019-11-05 09:47] LABS: BUN/Creatinine Ratio 23.9; Bilirubin, Total 0.3 mg/dL (0.2-1.0); Total Protein 5.4 g/dL (6.4-8.2)
== END | disposition home or self-care (01) ==
LOC: CHF HDHVI 08:12
PROVIDERS: ATTEND Internal Medicine Cardiovascular Disease
DX: I11.0 Hypertensive heart disease with heart failure (principal); I50.22 Chronic systolic (congestive) heart failure; E29.1 Testicular hypofunction; I25.10 Atherosclerotic heart disease of native coronary artery without angina pectoris; I42.8 Other cardiomyopathies; I73.9 Peripheral vascular disease, unspecified; R53.83 Other fatigue; E03.9 Hypothyroidism, unspecified; J44.9 Chronic obstructive pulmonary disease, unspecified; J90 Pleural effusion, not elsewhere classified; E11.9 Type 2 diabetes mellitus without complications; Z79.899 Other long term (current) drug therapy
CPT/HCPCS: 36415; 80053; 83880; 84403; 96365; 96366; 96367; 96372; G0463; J1071; J1940; J3420; P9047

== ENCOUNTER → 2019-11-06 | Outpatient (CLI) | payer MEDICARE ==
[2019-11-06] VITALS (10 sets, daily range): BP systolic 121–148; BP diastolic 55–71
[~2019-11-06] MED LIST changes: -ALBUMIN 25% 100 ML IV ONE; +ALBUMIN 5% 250 ML IV ONE; -CYANOCOBALAMIN (B-12) 1000 MCG/1 ML VIAL IM ONE; -CYANOCOBALAMIN (B-12) 1000 MCG/1 ML VIAL ONE; -POTASSIUM CHL 20 Meq TABLET PO ONE; -SODIUM CHLORIDE 0.9% 100 ML IV ONE; -TESTOSTERONE CYPIONATE 200 MG/ML 1ML VIAL IM ONE
== END | disposition home or self-care (01) ==
LOC: CHF HDHVI 08:13
PROVIDERS: ATTEND Internal Medicine Cardiovascular Disease
DX: E88.09 Other disorders of plasma-protein metabolism, not elsewhere classified (principal); E87.6 Hypokalemia; I11.0 Hypertensive heart disease with heart failure; I50.22 Chronic systolic (congestive) heart failure; I25.10 Atherosclerotic heart disease of native coronary artery without angina pectoris; I73.9 Peripheral vascular disease, unspecified; R94.4 Abnormal results of kidney function studies; J44.9 Chronic obstructive pulmonary disease, unspecified; E11.9 Type 2 diabetes mellitus without complications; J90 Pleural effusion, not elsewhere classified
CPT/HCPCS: 36415; 82565; 84132; 84520; 96365; 96366; 96367; G0463; J1940; P9045

== ENCOUNTER → 2019-11-08 | Outpatient (CLI) | payer MEDICARE ==
[~2019-11-08] MED LIST changes: +FUROSEMIDE 40 MG/4 ML VIAL IV ONE; +FUROSEMIDE 40 MG/4 ML VIAL ONE; -FUROSEMIDE INJECTION 10 ML ONE; -FUROSEMIDE INJECTION 100 MG in SODIUM CHL 0.9% 100 ML IV ONE; +POTASSIUM CHL 10 Meq TABLET PO ONE; +POTASSIUM CHL 20 Meq TABLET PO ONE
--- NOTE | 2019-11-08 08:00 | NUR ---
Patient into clinic for scheduled infusion and lab draw. Pt AAOx4, ambulatory, breathing even and unlabored.
--- NOTE | 2019-11-08 08:30 | NUR ---
IV insertion IV access obtained by Jacobo COLEY, via clean sterile technique by inserting 22 gauge catheter at BARRERA after 1 attempt(s). IV secured properly. No trauma to site. Patient tolerated procedure well.
[2019-11-08 09:23] LABS: Basophils # (auto) 0.1 10 ^3/uL (0-0.2); Basophils % (auto) 1.3 % (0.0-2.0); Eosinophils # (auto) 0.2 10 ^3/uL (0-0.8); Eosinophils % (auto) 2.5 % (0.0-7.0); Hematocrit 31.4 % (41.0-53.0); Hemoglobin 10.8 g/dL (13.5-17.5); Lymphocytes # (auto) 1.5 10 ^3/uL (0.4-5.4); Lymphocytes % (auto) 19.1 % (10.0-50.0); Mean Corpuscular Hgb Conc. 34.2 g/dL (32.0-36.0); Mean Corpuscular Volume 93.4 fL (80.0-100.0); Monocytes # (auto) 0.6 10 ^3/uL (0-1.3); Monocytes % (auto) 8.3 % (0.0-12.0); Neutrophils # (auto) 5.3 10 ^3/uL (1.6-8.6); Neutrophils % (auto) 68.8 % (37.0-80.0); Nucleated Red Blood Cells % 0.1 %; Platelet Count (auto) 353 10^3/uL (140-450); Red Blood Cells 3.36 10^6/uL (4.5-5.90); Red Cell Distribution Width 13.6 % (11.8-14.3); White Blood Cell 7.7 10^3/uL (4.4-10.8)
[2019-11-08 09:31] LABS: BUN/Creatinine Ratio 27.1; Calcium 8.3 mg/dL (8.5-10.1); Potassium 4.3 mmol/L (3.5-5.1)
[2019-11-08 09:40] LABS: Albumin 2.5 g/dL (3.4-5.0); Bilirubin, Total 0.2 mg/dL (0.2-1.0); Total Protein 5.7 g/dL (6.4-8.2)
[2019-11-08 09:49] VITALS: BP 125/53
--- NOTE | 2019-11-08 09:49 | NUR ---
CHF Clinic Discharge Instructions See e-MAR for any mediations given with this visit. Patient education given on disease process. Patient verbalized understanding. Previous labs reviewed. Patient discharged in stable condition with after care instructions and follow up appointment next Monday. Note Albumin [id number] admin by Jacobo COLEY. Lasix IVP admin by Katherine COLEY. Potassium PO admin by Katherine COLEY.
== END | disposition home or self-care (01) ==
LOC: CHF HDHVI 08:10
PROVIDERS: ATTEND Internal Medicine Cardiovascular Disease
DX: I11.0 Hypertensive heart disease with heart failure (principal); I50.22 Chronic systolic (congestive) heart failure; E88.09 Other disorders of plasma-protein metabolism, not elsewhere classified; R60.0 Localized edema; I25.10 Atherosclerotic heart disease of native coronary artery without angina pectoris; I73.9 Peripheral vascular disease, unspecified; J44.9 Chronic obstructive pulmonary disease, unspecified; J90 Pleural effusion, not elsewhere classified; E11.9 Type 2 diabetes mellitus without complications; Z79.899 Other long term (current) drug therapy
CPT/HCPCS: 36415; 80053; 83880; 85025; 96365; 96375; G0463; J1940; P9045

== ENCOUNTER → 2019-11-12 | Outpatient (CLI) | payer MEDICARE ==
[~2019-11-12] VITALS: Ht 30.5 cm; Wt 77.1 kg
[~2019-11-12] MED LIST changes: +ALBUMIN 25% 100 ML IV ONE; -ALBUMIN 5% 250 ML IV ONE; -FUROSEMIDE 40 MG/4 ML VIAL IV ONE; -FUROSEMIDE 40 MG/4 ML VIAL ONE; -POTASSIUM CHL 10 Meq TABLET PO ONE; -POTASSIUM CHL 20 Meq TABLET PO ONE
--- NOTE | 2019-11-12 08:45 | NUR ---
CHF PT ARRIVED TO THE CHF CLINIC FOR EVAL AND TREATMENT. A/OX4, AMBULATORY. PT HAS 3LB WT LOSS SINCE LAST VISIT ON Monday11/08/19. PT IS WEARING OWN HOME COMPRESSION STALKINGS AND STATES THAT UPON WAKENING THERE IS NO PERIPHERAL EDEMA BUT THAT HE HAS LOWER EXTREMITY EDEMA RIGHT AFTER HE GETS UP WALKING AROUND IN THE AM.
--- NOTE | 2019-11-12 09:09 | NUR ---
IV insertion IV access obtained, via clean sterile technique by inserting 22 gauge catheter at RFA after 1 attempt(s). IV secured properly. No trauma to site. Patient tolerated procedure well. LABS DRAWN AND SENT NOTE INSERTED BY BIJAL COLEY
--- NOTE | 2019-11-12 09:17 | NUR ---
ALBUMIN 25% IV STARTED @ 250ML/HR PER MD ORDERS. ALBUMIN LEVEL WAS 2.5 ON Monday11/08/19. NEW LABS WERE DRAWN AND SENT.
[2019-11-12 10:02] LABS: Albumin 2.5 g/dL (3.4-5.0); BUN/Creatinine Ratio 22.7; Calcium 8.3 mg/dL (8.5-10.1); Magnesium 2.3 mg/dL (1.6-2.6); Potassium 4.5 mmol/L (3.5-5.1)
[2019-11-12 10:09] LABS: Bilirubin, Total 0.3 mg/dL (0.2-1.0); Total Protein 5.7 g/dL (6.4-8.2)
[2019-11-12 10:51] LABS: Basophils # (auto) 0.1 10 ^3/uL (0-0.2); Basophils % (auto) 1.2 % (0.0-2.0); Eosinophils # (auto) 0.2 10 ^3/uL (0-0.8); Eosinophils % (auto) 2.6 % (0.0-7.0); Hematocrit 30.8 % (41.0-53.0); Hemoglobin 10.6 g/dL (13.5-17.5); Lymphocytes # (auto) 1.5 10 ^3/uL (0.4-5.4); Lymphocytes % (auto) 23.3 % (10.0-50.0); Mean Corpuscular Hemoglobin 32.1 pg (28.0-32.0); Mean Corpuscular Hgb Conc. 34.5 g/dL (32.0-36.0); Mean Corpuscular Volume 93.1 fL (80.0-100.0); Monocytes # (auto) 0.6 10 ^3/uL (0-1.3); Monocytes % (auto) 9.6 % (0.0-12.0); Neutrophils # (auto) 4.2 10 ^3/uL (1.6-8.6); Neutrophils % (auto) 63.3 % (37.0-80.0); Platelet Count (auto) 390 10^3/uL (140-450); Red Blood Cells 3.31 10^6/uL (4.5-5.90); Red Cell Distribution Width 13.7 % (11.8-14.3); White Blood Cell 6.6 10^3/uL (4.4-10.8)
[2019-11-12 12:10] VITALS: BP 134/52
--- NOTE | 2019-11-12 12:10 | NUR ---
Discharge Instructions See e-MAR for any mediations given with this visit. Patient education given on disease process. Patient verbalized understanding. Previous labs reviewed. Patient discharged in stable condition with after care instructions and follow up appointment. PT TO RETURN TO CLINIC ON Monday11/15/19 @8AM FOR LABS AND EVAL WITH MD JAMES. MED CHANGES MADE WITH PT PER MD. DEMADEX 40MG IN AM DOSE AND TO DECREASE PM DOSE TO 20MG. PT VERBALIZED UNDERSTANDING. NOTE ALBUMIN 25% IV [id number] ADMIN BY BIJAL COLEY LOT#[id number] EXP 01/28/22
== END | disposition home or self-care (01) ==
LOC: CHF HDHVI 08:36
PROVIDERS: ATTEND Internal Medicine Cardiovascular Disease
DX: E88.09 Other disorders of plasma-protein metabolism, not elsewhere classified (principal); I11.0 Hypertensive heart disease with heart failure; I50.22 Chronic systolic (congestive) heart failure; I50.30 Unspecified diastolic (congestive) heart failure; I25.10 Atherosclerotic heart disease of native coronary artery without angina pectoris; E11.9 Type 2 diabetes mellitus without complications; Z79.899 Other long term (current) drug therapy; R53.83 Other fatigue
CPT/HCPCS: 36415; 80053; 83735; 83880; 85025; 96365; G0463; P9047

== ENCOUNTER → 2019-11-15 | Outpatient (CLI) | payer MEDICARE ==
[~2019-11-15] MED LIST changes: +FUROSEMIDE 100 MG/10ML VIAL IV ONE; +FUROSEMIDE INJECTION 10 ML ONE; +SODIUM CHLORIDE 0.9% 90 ML IV ONE
[2019-11-15 09:00] VITALS: BP 131/65
[2019-11-15 09:30] VITALS: BP 131/65
[2019-11-15 09:54] LABS: Potassium 4.5 mmol/L (3.5-5.1)
[2019-11-15 10:00] VITALS: BP 135/64
[2019-11-15 10:30] VITALS: BP 132/62
[2019-11-15 13:15] VITALS: BP 129/59
== END | disposition home or self-care (01) ==
LOC: CHF HDHVI 08:08
PROVIDERS: ATTEND Internal Medicine Cardiovascular Disease
DX: R77.0 Abnormality of albumin (principal); I11.0 Hypertensive heart disease with heart failure; I50.22 Chronic systolic (congestive) heart failure; I25.10 Atherosclerotic heart disease of native coronary artery without angina pectoris; I73.9 Peripheral vascular disease, unspecified; I42.8 Other cardiomyopathies; E87.6 Hypokalemia; R94.4 Abnormal results of kidney function studies; R60.0 Localized edema; E03.9 Hypothyroidism, unspecified; J44.9 Chronic obstructive pulmonary disease, unspecified; J90 Pleural effusion, not elsewhere classified; E11.9 Type 2 diabetes mellitus without complications; E78.5 Hyperlipidemia, unspecified; Z79.899 Other long term (current) drug therapy
CPT/HCPCS: 36415; 82565; 83880; 84132; 84520; 96365; 96366; 96367; G0463; J1940; P9047

== ENCOUNTER → 2019-11-18 | Outpatient (CLI) | payer MEDICARE ==
[~2019-11-18] VITALS: Ht 30.5 cm; Wt 78.2 kg
[2019-11-18] VITALS (12 sets, daily range): BP systolic 109–135; BP diastolic 51–70
[~2019-11-18] MED LIST changes: -ALBUMIN 25% 100 ML IV ONE; -FUROSEMIDE 100 MG/10ML VIAL IV ONE; -FUROSEMIDE INJECTION 10 ML ONE; +MILRINONE 20MG/100ML 100 ML IV ONE; -SODIUM CHLORIDE 0.9% 90 ML IV ONE
[2019-11-18 09:21] LABS: Albumin 2.6 g/dL (3.4-5.0); BUN/Creatinine Ratio 21.7; Calcium 8.4 mg/dL (8.5-10.1); Potassium 4.5 mmol/L (3.5-5.1)
[2019-11-18 09:24] LABS: Bilirubin, Total 0.2 mg/dL (0.2-1.0)
== END | disposition home or self-care (01) ==
LOC: CHF HDHVI 08:14
PROVIDERS: ATTEND Internal Medicine Cardiovascular Disease
DX: I11.0 Hypertensive heart disease with heart failure (principal); I50.22 Chronic systolic (congestive) heart failure; I25.10 Atherosclerotic heart disease of native coronary artery without angina pectoris; I42.8 Other cardiomyopathies; R53.83 Other fatigue; K90.9 Intestinal malabsorption, unspecified; R60.0 Localized edema; J44.9 Chronic obstructive pulmonary disease, unspecified; J90 Pleural effusion, not elsewhere classified; I73.9 Peripheral vascular disease, unspecified; E11.9 Type 2 diabetes mellitus without complications; Z79.899 Other long term (current) drug therapy
CPT/HCPCS: 36415; 80053; 82306; 83880; 96365; 96366; G0463; J2260

== ENCOUNTER → 2019-11-20 | Outpatient (CLI) | payer MEDICARE ==
[2019-11-20] VITALS (9 sets, daily range): BP systolic 103–115; BP diastolic 52–59
[~2019-11-20] VITALS: Ht 30.5 cm; Wt 77.6 kg
[~2019-11-20] MED LIST changes: +ALBUMIN 25% 100 ML IV ONE; +SODIUM CHLORIDE 0.9% 250 ML IV ONE
[2019-11-20 09:32] LABS: BUN/Creatinine Ratio 22.1; Potassium 4.5 mmol/L (3.5-5.1)
== END | disposition home or self-care (01) ==
LOC: CHF HDHVI 07:54
PROVIDERS: ATTEND Internal Medicine Cardiovascular Disease
DX: I11.0 Hypertensive heart disease with heart failure (principal); I50.22 Chronic systolic (congestive) heart failure; I25.10 Atherosclerotic heart disease of native coronary artery without angina pectoris; E88.09 Other disorders of plasma-protein metabolism, not elsewhere classified; R53.83 Other fatigue; I73.9 Peripheral vascular disease, unspecified; J44.9 Chronic obstructive pulmonary disease, unspecified; E03.9 Hypothyroidism, unspecified; J90 Pleural effusion, not elsewhere classified; E11.9 Type 2 diabetes mellitus without complications; Z79.899 Other long term (current) drug therapy
CPT/HCPCS: 36415; 80048; 83880; 96361; 96365; 96375; G0463; J2260; J7050; P9047; 96367

== ENCOUNTER → 2019-11-21 | Outpatient (CLI) | payer MEDICARE ==
[~2019-11-21] MED LIST changes: -ALBUMIN 25% 100 ML IV ONE; -MILRINONE 20MG/100ML 100 ML IV ONE; -SODIUM CHLORIDE 0.9% 250 ML IV ONE
--- NOTE | 2019-11-21 09:43 | NUR ---
CHF PT ARRIVED TO THE CHF CLINIC FOR LAB DRAW AND EVAL PER MD ORDERS. A/O X4, AMBULATORY. 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 HE ALSO STATED THAT AT HOME HIS B/P HAS BEEN LOW 97/55, 95/55, AND THAT WHEN IT IS THAT LOW HE JUST DOESN'T FEEL RIGHT.
--- NOTE | 2019-11-21 09:52 | NUR ---
ORDERED LABS DRAWN VIA BUTTERFLY AND SENT. PT TOLERATED PROCEDURE.
--- NOTE | 2019-11-21 10:21 | NUR ---
CALL MADE TO DON WITH [facility] TO HAVE A PACEMAKER CHECK DONE. HE WILL BE IN TODAY FOR A PACEMAKER CHECK.
--- NOTE | 2019-11-21 11:20 | NUR ---
PT AMBULATORY, ESCORTED TO DON WITH [facility] FOR PACEMAKER CHECK.
--- NOTE | 2019-11-21 11:39 | NUR ---
PT RETURNED FROM PACEMAKER CHECK WITH ADJUSTMENT MADE. PT TO HAVE PACEMAKER CHECK IN 3 MONTHS.
[2019-11-21 11:41] VITALS: BP 120/58
--- NOTE | 2019-11-21 11:41 | NUR ---
Discharge Instructions See e-MAR for any mediations given with this visit. Patient education given on disease process. Patient verbalized understanding. Previous labs reviewed. Patient discharged in stable condition with after care instructions and follow up appointment. PT TO RETURN TO CLINIC ON Monday11/25/19 FOR F/U EVAL AND TX. A F/U APPOINTMENT FOR PACEMAKER CHECK WAS SCHEDULED ON 02/25/20.
[2019-11-21 12:10] LABS: Free T3 2.38 pg/mL (2.3-4.2); Free T4 (Free Thyroxine) 1.18 ng/dL (0.89-1.76)
== END | disposition home or self-care (01) ==
LOC: CHF HDHVI 09:49
PROVIDERS: ATTEND Internal Medicine Cardiovascular Disease
DX: Z12.5 Encounter for screening for malignant neoplasm of prostate (principal); E03.9 Hypothyroidism, unspecified; I50.9 Heart failure, unspecified
CPT/HCPCS: 36415; 84439; 84443; 84481; G0463

== ENCOUNTER → 2019-11-25 | Outpatient (CLI) | payer MEDICARE ==
[2019-11-25] VITALS (9 sets, daily range): BP systolic 120–137; BP diastolic 46–61
[~2019-11-25] MED LIST changes: +DOBUTamine 1000MCG/ML 250 ML IV ONE
== END | disposition home or self-care (01) ==
LOC: CHF HDHVI 07:52
PROVIDERS: ATTEND Internal Medicine Cardiovascular Disease
DX: I11.0 Hypertensive heart disease with heart failure (principal); I50.22 Chronic systolic (congestive) heart failure; I25.10 Atherosclerotic heart disease of native coronary artery without angina pectoris; I42.8 Other cardiomyopathies; I73.9 Peripheral vascular disease, unspecified; R53.83 Other fatigue; R60.9 Edema, unspecified; E03.9 Hypothyroidism, unspecified; J44.9 Chronic obstructive pulmonary disease, unspecified; E11.9 Type 2 diabetes mellitus without complications; E78.5 Hyperlipidemia, unspecified; Z79.899 Other long term (current) drug therapy
CPT/HCPCS: 96365; 96366; G0463; J1250

== ENCOUNTER → 2019-11-27 | Outpatient (CLI) | payer MEDICARE ==
[2019-11-27] VITALS (9 sets, daily range): BP systolic 124–138; BP diastolic 52–71
[~2019-11-27] VITALS: Ht 30.5 cm; Wt 76.3 kg
[2019-11-27 12:24] LABS: Calcium 8.1 mg/dL (8.5-10.1); Chloride 106 mmol/L (98-107); Magnesium 2.7 mg/dL (1.6-2.6); Potassium 4.5 mmol/L (3.5-5.1); Sodium 135 mmol/L (136-145)
[2019-11-27 12:28] LABS: Basophils # (auto) 0.1 10 ^3/uL (0-0.2); Basophils % (auto) 1.2 % (0.0-2.0); Eosinophils # (auto) 0.2 10 ^3/uL (0-0.8); Eosinophils % (auto) 2.2 % (0.0-7.0); Hematocrit 26.9 % (41.0-53.0); Hemoglobin 9.3 g/dL (13.5-17.5); Lymphocytes # (auto) 2.3 10 ^3/uL (0.4-5.4); Lymphocytes % (auto) 24.3 % (10.0-50.0); Mean Corpuscular Hgb Conc. 34.6 g/dL (32.0-36.0); Mean Corpuscular Volume 95.2 fL (80.0-100.0); Monocytes # (auto) 0.7 10 ^3/uL (0-1.3); Monocytes % (auto) 7.5 % (0.0-12.0); Neutrophils # (auto) 6.2 10 ^3/uL (1.6-8.6); Neutrophils % (auto) 64.8 % (37.0-80.0); Nucleated Red Blood Cells % 0.1 %; Platelet Count (auto) 374 10^3/uL (140-450); Red Blood Cells 2.82 10^6/uL (4.5-5.90); Red Cell Distribution Width 14.6 % (11.8-14.3); White Blood Cell 9.5 10^3/uL (4.4-10.8)
[2019-11-27 12:30] LABS: Alanine Aminotransferase 23 U/L (16-61); Albumin 2.4 g/dL (3.4-5.0); Alkaline Phosphatase 99 U/L (45-117); Anion Gap 7 (5-15); Aspartate Aminotransferase 24 U/L (15-37); BUN/Creatinine Ratio 22.2; Bilirubin, Direct < 0.1 mg/dL (0-0.2); Bilirubin, Total 0.2 mg/dL (0.2-1.0); Blood Urea Nitrogen 30 mg/dL (7-18); Carbon Dioxide 22 mmol/L (21-32); Cholesterol 181 mg/dL (< 200); GFR African American 67 mL/min; GFR Non-African American 55 mL/min; Glucose 96 mg/dL (74-106); HDL Cholesterol 81 mg/dL (40-59); LDL Cholesterol 85 mg/dL (< 100); Total Protein 5.7 g/dL (6.4-8.2); Triglycerides 107 mg/dL (< 150)
== END | disposition home or self-care (01) ==
LOC: CHF HDHVI 07:53
PROVIDERS: ATTEND Internal Medicine Cardiovascular Disease
DX: I11.0 Hypertensive heart disease with heart failure (principal); I50.22 Chronic systolic (congestive) heart failure; I50.30 Unspecified diastolic (congestive) heart failure; R79.89 Other specified abnormal findings of blood chemistry; D51.9 Vitamin B12 deficiency anemia, unspecified; E11.9 Type 2 diabetes mellitus without complications; I25.10 Atherosclerotic heart disease of native coronary artery without angina pectoris; I42.8 Other cardiomyopathies; E78.5 Hyperlipidemia, unspecified; E03.9 Hypothyroidism, unspecified; Z13.29 Encounter for screening for other suspected endocrine disorder; Z79.899 Other long term (current) drug therapy
CPT/HCPCS: 36415; 80048; 80061; 80076; 82607; 83036; 83735; 83880; 85025; 86141; 96365; 96366; G0463; J1250

== ENCOUNTER → 2019-11-29 | Outpatient (CLI) | payer MEDICARE ==
[~2019-11-29] MED LIST changes: +ALBUMIN 25% 100 ML IV ONE; -DOBUTamine 1000MCG/ML 250 ML IV ONE
[2019-11-29 08:00] VITALS: BP 129/63
[2019-11-29 08:30] VITALS: BP 145/65
[2019-11-29 09:09] VITALS: BP 143/60
[2019-11-29 12:15] LABS: Basophils # (auto) 0.1 10 ^3/uL (0-0.2); Basophils % (auto) 0.9 % (0.0-2.0); Eosinophils # (auto) 0.2 10 ^3/uL (0-0.8); Eosinophils % (auto) 2.1 % (0.0-7.0); Hematocrit 33.2 % (41.0-53.0); Hemoglobin 11.1 g/dL (13.5-17.5); Lymphocytes # (auto) 1.9 10 ^3/uL (0.4-5.4); Lymphocytes % (auto) 23.9 % (10.0-50.0); Mean Corpuscular Hemoglobin 31.9 pg (28.0-32.0); Mean Corpuscular Hgb Conc. 33.3 g/dL (32.0-36.0); Mean Corpuscular Volume 95.6 fL (80.0-100.0); Monocytes # (auto) 0.7 10 ^3/uL (0-1.3); Neutrophils % (auto) 64.1 % (37.0-80.0); Nucleated Red Blood Cells % 0.1 %; Platelet Count (auto) 327 10^3/uL (140-450); Red Blood Cells 3.48 10^6/uL (4.5-5.90); Red Cell Distribution Width 14.4 % (11.8-14.3); White Blood Cell 7.8 10^3/uL (4.4-10.8)
[2019-11-29 13:11] LABS: Potassium 4.9 mmol/L (3.5-5.1)
== END | disposition home or self-care (01) ==
LOC: CHF HDHVI 07:56
PROVIDERS: ATTEND Internal Medicine Cardiovascular Disease
DX: E88.09 Other disorders of plasma-protein metabolism, not elsewhere classified (principal); I11.0 Hypertensive heart disease with heart failure; I50.22 Chronic systolic (congestive) heart failure; I25.10 Atherosclerotic heart disease of native coronary artery without angina pectoris; R53.83 Other fatigue; I42.8 Other cardiomyopathies; I73.9 Peripheral vascular disease, unspecified; E03.9 Hypothyroidism, unspecified; E11.9 Type 2 diabetes mellitus without complications; J44.9 Chronic obstructive pulmonary disease, unspecified; Z79.899 Other long term (current) drug therapy
CPT/HCPCS: 36415; 82565; 83880; 84132; 84520; 85025; 96365; G0463; P9047

== ENCOUNTER → 2019-12-02 | Outpatient (CLI) | payer MEDICARE ==
[2019-12-02] VITALS (9 sets, daily range): BP systolic 129–137; BP diastolic 45–60
[~2019-12-02] VITALS: Ht 30.5 cm; Wt 76.7 kg
[~2019-12-02] MED LIST changes: +DOBUTamine 1000MCG/ML 250 ML IV ONE
--- NOTE | 2019-12-02 07:35 | NUR ---
CHF PT ARRIVED TO THE CHF CLINIC FOR F/U AND TX AND WEEKLY DOBUTAMINE INFUSION PER MD ORDERS. A/OX4, AMBULATORY. PT ARRIVED TO THE CLINIC WITH OWN COMPRESSION STOCKINGS ON. 1+ EDEMA WITH STOCKINGS. PT HAS INCREASE IN WT BY 1.8 LBS. PT HAS BANDAGE ON R FOREARM AND R KNUCKLE FROM AN ACCIDENTAL CUT THAT HE DID AT HOME. NO DRAINAGE TO CUT.
--- NOTE | 2019-12-02 08:02 | NUR ---
IV insertion IV access obtained, via clean sterile technique by inserting 22 gauge catheter at after 1 attempt(s). IV secured properly. No trauma to site. Patient tolerated procedure well. LABS DRAWN AND SENT NOTE INSERTED BY CICI COLEY
--- NOTE | 2019-12-02 08:08 | NUR ---
ALBUMIN 25% IV STARTED @ 150ML/HR PER MD ORDERS. VSS. WILL CONTINUE TO MONITOR
--- NOTE | 2019-12-02 08:55 | NUR ---
DOBUTAMINE INFUSION STARTED @ 3MCG/KG/MIN PER MD ORDER. VSS.WILL CONTINUE TO MONITOR.
[2019-12-02 09:18] LABS: Albumin 2.4 g/dL (3.4-5.0); BUN/Creatinine Ratio 27.4; Calcium 8.2 mg/dL (8.5-10.1); Potassium 5.1 mmol/L (3.5-5.1)
[2019-12-02 09:21] LABS: Bilirubin, Total 0.2 mg/dL (0.2-1.0); Total Protein 5.6 g/dL (6.4-8.2)
--- NOTE | 2019-12-02 10:10 | NUR ---
PT TOLERATING DOBUTAMINE INFUSION. IV SITE BENIGN. VSS. WILL CONTINUE TO MONITOR.
--- NOTE | 2019-12-02 12:16 | NUR ---
Discharge Instructions See e-MAR for any mediations given with this visit. Patient education given on disease process. Patient verbalized understanding. Previous labs reviewed. Patient discharged in stable condition with after care instructions and follow up appointment. WILL RETURN TO CLINIC ON MON FOR F/U AND TX PER MD ORDER. NOTE ALBUMIN 25% IV [id number] ADMIN BY BIJAL COLEY DOBUTAMINE IV [id number] ADMIN BY BIJAL COLEY
== END | disposition home or self-care (01) ==
LOC: CHF HDHVI 07:48
PROVIDERS: ATTEND Internal Medicine Cardiovascular Disease
DX: I11.0 Hypertensive heart disease with heart failure (principal); I50.22 Chronic systolic (congestive) heart failure; E88.09 Other disorders of plasma-protein metabolism, not elsewhere classified; I25.10 Atherosclerotic heart disease of native coronary artery without angina pectoris; R53.83 Other fatigue; J44.9 Chronic obstructive pulmonary disease, unspecified; I42.8 Other cardiomyopathies; I73.9 Peripheral vascular disease, unspecified; E03.9 Hypothyroidism, unspecified; E11.9 Type 2 diabetes mellitus without complications; J90 Pleural effusion, not elsewhere classified; Z79.899 Other long term (current) drug therapy
CPT/HCPCS: 36415; 80053; 83880; 96365; 96366; 96367; G0463; J1250; P9047

== ENCOUNTER → 2019-12-04 | Outpatient (CLI) | payer MEDICARE ==
[2019-12-04] VITALS (9 sets, daily range): BP systolic 116–144; BP diastolic 49–58
[~2019-12-04] MED LIST changes: -ALBUMIN 25% 100 ML IV ONE; +CYANOCOBALAMIN (B-12) 1000 MCG/1 ML VIAL IM ONE; +CYANOCOBALAMIN (B-12) 1000 MCG/1 ML VIAL ONE
--- NOTE | 2019-12-04 07:35 | NUR ---
PT. TO CHF CLINIC FOR DOBUTAMINE INFUSION PER MD ORDER. STEEL LAYER SHOWS PACED RHYTHM AT 75 WITH NO ECTOPY. PT. WITH NO C/O AT THIS TIME. MD ORDERS RECEIVED AND CARRIED OUT. SEE NSG ASSESS.
--- NOTE | 2019-12-04 07:55 | NUR ---
IV insertion IV access obtained, via clean sterile technique by inserting 22 gauge catheter at after attempt(s). IV secured properly. No trauma to site. Patient tolerated procedure well.
--- NOTE | 2019-12-04 08:02 | NUR ---
Clinic Provider Clinic Provider into see pt with new orders received and carried out. Dobutamine gtt started at {3}mcg/kg/hr per MD order.
--- NOTE | 2019-12-04 10:12 | NUR ---
PT TOLERATING DOBUTAMINE INFUSION. IV SITE BENIGN. VSS. WILL CONTINUE TO MONITOR.
--- NOTE | 2019-12-04 11:11 | NUR ---
Discharge Instructions See e-MAR for any mediations given with this visit. Patient education given on disease process. Patient verbalized understanding. Previous labs reviewed. Patient discharged in stable condition with after care instructions and follow up appointment. PT HAS APPT WITH [facility] ON MONDAY AND WILL RETURN TO CLINIC ON MON FOR F/U AND EVAL PER MD ORDERS NOTE DOBUTAMINE IV [id number] ADMIN BY CICI COLEY VIT B12 IM R DELTOID ADMIN BY JOSE BONILLA
== END | disposition home or self-care (01) ==
LOC: CHF HDHVI 07:47
PROVIDERS: ATTEND Internal Medicine Cardiovascular Disease
DX: I11.0 Hypertensive heart disease with heart failure (principal); I50.42 Chronic combined systolic (congestive) and diastolic (congestive) heart failure; I25.10 Atherosclerotic heart disease of native coronary artery without angina pectoris; J44.9 Chronic obstructive pulmonary disease, unspecified; E03.9 Hypothyroidism, unspecified; E11.51 Type 2 diabetes mellitus with diabetic peripheral angiopathy without gangrene; E78.5 Hyperlipidemia, unspecified; I25.5 Ischemic cardiomyopathy; Z79.899 Other long term (current) drug therapy
CPT/HCPCS: 96365; 96366; 96372; G0463; J1250; J3420

== ENCOUNTER → 2019-12-11 | Outpatient (CLI) | payer MEDICARE ==
[~2019-12-11] VITALS: Ht 30.5 cm; Wt 78.4 kg
[2019-12-11] VITALS (9 sets, daily range): BP systolic 132–149; BP diastolic 53–66
[~2019-12-11] MED LIST changes: -CYANOCOBALAMIN (B-12) 1000 MCG/1 ML VIAL IM ONE; -CYANOCOBALAMIN (B-12) 1000 MCG/1 ML VIAL ONE
--- NOTE | 2019-12-11 07:50 | NUR ---
PATIENT INTO CLINIC FOR SCHEDULED INFUSION, AAOX4, AMBULATORY, BREATHING EVEN AND UNLABORED. PATIENT WENT TO REFERRAL AT [facility] ON MONDAY, HAD LABS DRAWN AND HAS OTHER SCHEDULED TESTS THIS WEEK.
--- NOTE | 2019-12-11 07:55 | NUR ---
IV insertion IV access obtained by Jacobo COLEY, via clean sterile technique by inserting 22 gauge catheter at [facility] after 1 attempt(s). IV secured properly. No trauma to site. Patient tolerated procedure well.
[2019-12-11 09:41] LABS: Basophils # (auto) 0.1 10 ^3/uL (0-0.2); Basophils % (auto) 1.3 % (0.0-2.0); Eosinophils # (auto) 0.1 10 ^3/uL (0-0.8); Eosinophils % (auto) 1.7 % (0.0-7.0); Hemoglobin 11.3 g/dL (13.5-17.5); Lymphocytes % (auto) 28.1 % (10.0-50.0); Mean Corpuscular Hemoglobin 32.3 pg (28.0-32.0); Mean Corpuscular Hgb Conc. 34.2 g/dL (32.0-36.0); Mean Corpuscular Volume 94.3 fL (80.0-100.0); Monocytes # (auto) 0.6 10 ^3/uL (0-1.3); Monocytes % (auto) 9.1 % (0.0-12.0); Neutrophils # (auto) 4.2 10 ^3/uL (1.6-8.6); Neutrophils % (auto) 59.8 % (37.0-80.0); Nucleated Red Blood Cells % 0.1 %; Platelet Count (auto) 413 10^3/uL (140-450); Red Blood Cells 3.49 10^6/uL (4.5-5.90); Red Cell Distribution Width 14.1 % (11.8-14.3)
[2019-12-11 09:49] LABS: Albumin 2.3 g/dL (3.4-5.0); BUN/Creatinine Ratio 23.6; Calcium 8.1 mg/dL (8.5-10.1); Magnesium 2.9 mg/dL (1.6-2.6); Potassium 4.3 mmol/L (3.5-5.1)
[2019-12-11 09:52] LABS: Bilirubin, Total 0.2 mg/dL (0.2-1.0)
--- NOTE | 2019-12-11 11:20 | NUR ---
IV removal IV DC'd with sterile technique, catheter fully intact. Pressure dressing applied to site. Patient tolerated procedure well.
--- NOTE | 2019-12-11 11:30 | NUR ---
PATIENT SPEAKING WITH DR JAMES ABOUT HIS VISIT WITH [facility] ON MONDAY, WILL CANCEL MONDAY F/U APPT
--- NOTE | 2019-12-11 11:38 | NUR ---
CHF CLINIC Discharge Instructions See e-MAR for any mediations given with this visit. Patient education given on disease process. Patient verbalized understanding. Previous labs reviewed. Patient discharged in stable condition with after care instructions and follow up appointment. NOTE DOBUTAMINE [id number] ADMIN BY CICI COLEY
== END | disposition home or self-care (01) ==
LOC: CHF HDHVI 07:42
PROVIDERS: ATTEND Internal Medicine Cardiovascular Disease
DX: I11.0 Hypertensive heart disease with heart failure (principal); I50.23 Acute on chronic systolic (congestive) heart failure; I42.8 Other cardiomyopathies; I25.10 Atherosclerotic heart disease of native coronary artery without angina pectoris; I73.9 Peripheral vascular disease, unspecified; D64.9 Anemia, unspecified; E83.40 Disorders of magnesium metabolism, unspecified; R53.83 Other fatigue; J44.9 Chronic obstructive pulmonary disease, unspecified; E78.5 Hyperlipidemia, unspecified; E03.9 Hypothyroidism, unspecified; E11.51 Type 2 diabetes mellitus with diabetic peripheral angiopathy without gangrene; J90 Pleural effusion, not elsewhere classified; Z79.899 Other long term (current) drug therapy
CPT/HCPCS: 36415; 80053; 83735; 83880; 85025; 96365; 96366; G0463; J1250

== ENCOUNTER → 2019-12-16 | Outpatient (CLI) | payer MEDICARE ==
[2019-12-16] VITALS (9 sets, daily range): BP systolic 127–144; BP diastolic 47–65
--- NOTE | 2019-12-16 07:40 | NUR ---
PT. TO CHF CLINIC FOR DOBUTAMINE THERAPY PER DR. JAMES. PT. WAS SEEN DOWN AT [facility] BY DR. MACIAS FOR SECOND OPINION AND HAS BEEN REFERRED TO DR. NANDO BURGOS FOR EVAL. PT. 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 PT. HAD [facility] [employer] [facility] OVER THE WEEKEND, DOING MORE PHYSICAL ACTIVITIES AROUND THE HOUSE THAN NORMAL. MD ORDERS RECEIVED AND CARRIED OUT. SEE NSG ASSESS.
--- NOTE | 2019-12-16 07:47 | NUR ---
IV insertion IV access obtained, via clean sterile technique by inserting 22 gauge catheter at after attempt(s). IV secured properly. No trauma to site. Patient tolerated procedure well. LABS DRAWN AND SENT.
--- NOTE | 2019-12-16 07:52 | NUR ---
Clinic Provider Clinic Provider into see pt with new orders received and carried out. Dobutamine gtt started at {3}mcg/kg/hr per MD order. RN MATERNITY SHOWS SR AT 79 WITH NO ECTOPY.
--- NOTE | 2019-12-16 09:38 | NUR ---
PT TOLERATING DOBUTAMINE INFUSION. IV SITE BENIGN. VSS. WILL CONTINUE TO MONITOR.
--- NOTE | 2019-12-16 10:57 | NUR ---
IV removal IV DC'd with sterile technique, catheter fully intact. Pressure dressing applied to site. Patient tolerated procedure well. Discharged with aftercare instructions per MD. NOTE: REMOVED BY BJIAL COLEY
--- NOTE | 2019-12-16 11:00 | NUR ---
Discharge Instructions See e-MAR for any mediations given with this visit. Patient education given on disease process. Patient verbalized understanding. Previous labs reviewed. Patient discharged in stable condition with after care instructions and follow up appointment. PT TO RETURN TO CLINIC ON Mon12/18/19 FOR F/U AND TX. NOTE DOBUTAMINE IV [id number] ADMIN BY BIJAL COLEY
[2019-12-16 12:00] LABS: Basophils # (auto) 0.1 10 ^3/uL (0-0.2); Basophils % (auto) 1.3 % (0.0-2.0); Eosinophils % (auto) 2.1 % (0.0-7.0); Lymphocytes # (auto) 2.1 10 ^3/uL (0.4-5.4)
[2019-12-16 12:02] LABS: Eosinophils # (auto) 0.1 10 ^3/uL (0-0.8); Hematocrit 32.9 % (41.0-53.0); Hemoglobin 11.1 g/dL (13.5-17.5); Mean Corpuscular Hgb Conc. 33.6 g/dL (32.0-36.0); Mean Corpuscular Volume 95.1 fL (80.0-100.0); Monocytes # (auto) 0.7 10 ^3/uL (0-1.3); Monocytes % (auto) 9.1 % (0.0-12.0); Neutrophils # (auto) 4.3 10 ^3/uL (1.6-8.6); Neutrophils % (auto) 58.5 % (37.0-80.0); Nucleated Red Blood Cells % 0.1 %; Platelet Count (auto) 467 10^3/uL (140-450); Red Blood Cells 3.46 10^6/uL (4.5-5.90); Red Cell Distribution Width 14.5 % (11.8-14.3); White Blood Cell 7.3 10^3/uL (4.4-10.8)
[2019-12-16 12:18] LABS: Potassium 4.7 mmol/L (3.5-5.1)
== END | disposition home or self-care (01) ==
LOC: CHF HDHVI 07:43
PROVIDERS: ATTEND Internal Medicine Cardiovascular Disease
DX: I11.0 Hypertensive heart disease with heart failure (principal); I50.23 Acute on chronic systolic (congestive) heart failure; D64.9 Anemia, unspecified; R94.4 Abnormal results of kidney function studies; E87.6 Hypokalemia; I25.10 Atherosclerotic heart disease of native coronary artery without angina pectoris; I42.8 Other cardiomyopathies; I73.9 Peripheral vascular disease, unspecified; J44.9 Chronic obstructive pulmonary disease, unspecified; E78.5 Hyperlipidemia, unspecified; E03.9 Hypothyroidism, unspecified; J90 Pleural effusion, not elsewhere classified; E11.51 Type 2 diabetes mellitus with diabetic peripheral angiopathy without gangrene; Z79.899 Other long term (current) drug therapy
CPT/HCPCS: 36415; 82565; 83880; 84132; 84520; 85025; 96365; 96366; G0463; J1250

== ENCOUNTER → 2019-12-18 | Outpatient (CLI) | payer MEDICARE ==
[2019-12-18] VITALS (9 sets, daily range): BP systolic 137–152; BP diastolic 52–61
== END | disposition home or self-care (01) ==
LOC: CHF HDHVI 07:44
PROVIDERS: ATTEND Internal Medicine Cardiovascular Disease
DX: I11.0 Hypertensive heart disease with heart failure (principal); I50.42 Chronic combined systolic (congestive) and diastolic (congestive) heart failure; I25.10 Atherosclerotic heart disease of native coronary artery without angina pectoris; E78.5 Hyperlipidemia, unspecified; E03.9 Hypothyroidism, unspecified; J44.9 Chronic obstructive pulmonary disease, unspecified; E11.51 Type 2 diabetes mellitus with diabetic peripheral angiopathy without gangrene; Z79.899 Other long term (current) drug therapy
CPT/HCPCS: 96365; 96366; G0463; J1250

== ENCOUNTER → 2019-12-23 | Outpatient (CLI) | payer MEDICARE ==
[2019-12-23] VITALS (9 sets, daily range): BP systolic 129–141; BP diastolic 50–63
--- NOTE | 2019-12-23 12:27 | NUR ---
CLINIC PT ARRIVED TO THE CHF CLINIC FOR WEEKLY CHF EVAL AND TX. A/O X4, AMBULATORY. PT HAS 2+ PITTING EDEMA IN THE LOWER EXTREMITIES. PT IS ALSO WEARING OWN COMPRESSION STALKINGS.
--- NOTE | 2019-12-23 13:01 | NUR ---
IV insertion IV access obtained, via clean sterile technique by inserting 22 gauge catheter at RFA after 2 attempt(s). IV secured properly. No trauma to site. Patient tolerated procedure well. LABS DRAWN AND SENT NOTE INSERTED BY JEYSON COLEY
--- NOTE | 2019-12-23 13:12 | NUR ---
DOBUTAMINE IV STARTED @ 3MCG/KG/MIN PER MD ORDERS. VSS. WILL CONTINUE TO MONITOR.
--- NOTE | 2019-12-23 15:05 | NUR ---
PT TOLERATING DOBUTAMINE INFUSION. IV SITE BENIGN. VSS. WILL CONTINUE TO MONITOR
--- NOTE | 2019-12-23 16:18 | NUR ---
IV removal IV DC'd with sterile technique, catheter fully intact. Pressure dressing applied to site. Patient tolerated procedure well. Discharged with aftercare instructions per MD. NOTE: REMOVED BY JEYSON COLEY
--- NOTE | 2019-12-23 16:23 | NUR ---
Discharge Instructions See e-MAR for any mediations given with this visit. Patient education given on disease process. Patient verbalized understanding. Previous labs reviewed. Patient discharged in stable condition with after care instructions and follow up appointment ON MON. NOTE DOBUTAMINE IV [id number] ADMIN BY JEYSON COLEY
[2019-12-24 15:00] LABS: Calcium 8.1 mg/dL (8.5-10.1); Potassium 4.4 mmol/L (3.5-5.1)
== END | disposition home or self-care (01) ==
LOC: CHF HDHVI 12:29
PROVIDERS: ATTEND Internal Medicine Cardiovascular Disease
DX: I11.0 Hypertensive heart disease with heart failure (principal); I50.23 Acute on chronic systolic (congestive) heart failure; I25.10 Atherosclerotic heart disease of native coronary artery without angina pectoris; R53.83 Other fatigue; J44.9 Chronic obstructive pulmonary disease, unspecified; I42.8 Other cardiomyopathies; I73.9 Peripheral vascular disease, unspecified; E78.5 Hyperlipidemia, unspecified; E03.9 Hypothyroidism, unspecified; J90 Pleural effusion, not elsewhere classified; E11.9 Type 2 diabetes mellitus without complications; Z79.899 Other long term (current) drug therapy
CPT/HCPCS: 36415; 80048; 83880; 96365; 96366; G0463; J1250

== ENCOUNTER → 2019-12-25 | Outpatient (CLI) | payer MEDICARE ==
[2019-12-25] VITALS (9 sets, daily range): BP systolic 130–145; BP diastolic 51–65
[~2019-12-25] VITALS: Ht 30.5 cm; Wt 79.6 kg
--- NOTE | 2019-12-25 07:35 | NUR ---
CLINIC PT ARRIVED TO THE CHF CLINIC FOR CHF EVAL AND TX. A/OX4, AMBULATORY. PT WEARING OWN COMPRESSION STALKING TO REDUCE EDEMA. 1+ EDEMA WITH STOCKINGS ON.
--- NOTE | 2019-12-25 07:39 | NUR ---
IV insertion IV access obtained, via clean sterile technique by inserting 22 gauge catheter at RFA after 1 attempt(s). IV secured properly. No trauma to site. Patient tolerated procedure well. NOTE INSERTED BY CICI COLEY
--- NOTE | 2019-12-25 07:42 | NUR ---
DOBUTAMINE IV STARTED @ 3MCG/KG/MIN PER MD ORDERS. VSS. WILL CONTINUE TO MONITOR
--- NOTE | 2019-12-25 07:48 | NUR ---
PT HR INCREASED TO ST 119 BPM NO ECTOPY. ASYMPTOMATIC
--- NOTE | 2019-12-25 07:51 | NUR ---
PT RETURNED TO SR 89 WITH NO ECTOPY. ASYMPTOMATIC. VSS. WILL CONTINUE TO MONITOR.
--- NOTE | 2019-12-25 10:20 | NUR ---
PT TOLERATING DOBUTAMINE INFUSION. IV SITE BENIGN. VSS. WILL CONTINUE TO MONITOR
--- NOTE | 2019-12-25 11:04 | NUR ---
Discharge Instructions See e-MAR for any mediations given with this visit. Patient education given on disease process. Patient verbalized understanding. Previous labs reviewed. Patient discharged in stable condition with after care instructions and follow up appointment ON MONDAY NOTE DOBUTAMINE IV [id number] ADMIN BY CICI COLEY
== END | disposition home or self-care (01) ==
LOC: CHF HDHVI 07:30
PROVIDERS: ATTEND Internal Medicine Cardiovascular Disease
DX: I11.0 Hypertensive heart disease with heart failure (principal); I50.42 Chronic combined systolic (congestive) and diastolic (congestive) heart failure; R53.83 Other fatigue; I25.10 Atherosclerotic heart disease of native coronary artery without angina pectoris; I42.8 Other cardiomyopathies; E11.51 Type 2 diabetes mellitus with diabetic peripheral angiopathy without gangrene; E78.5 Hyperlipidemia, unspecified; E03.9 Hypothyroidism, unspecified; Z79.899 Other long term (current) drug therapy
CPT/HCPCS: 96365; 96366; G0463; J1250

== ENCOUNTER → 2019-12-30 | Outpatient (CLI) | payer MEDICARE ==
[2019-12-30] VITALS (11 sets, daily range): BP systolic 123–144; BP diastolic 40–56
[2019-12-30 11:56] LABS: Basophils # (auto) 0.1 10 ^3/uL (0-0.2); Eosinophils # (auto) 0.1 10 ^3/uL (0-0.8); Hematocrit 33.4 % (41.0-53.0); Hemoglobin 11.3 g/dL (13.5-17.5); Lymphocytes # (auto) 1.5 10 ^3/uL (0.4-5.4); Lymphocytes % (auto) 22.4 % (10.0-50.0); Mean Corpuscular Hemoglobin 31.9 pg (28.0-32.0); Mean Corpuscular Hgb Conc. 33.7 g/dL (32.0-36.0); Mean Corpuscular Volume 94.5 fL (80.0-100.0); Monocytes # (auto) 0.6 10 ^3/uL (0-1.3); Monocytes % (auto) 8.3 % (0.0-12.0); Neutrophils # (auto) 4.6 10 ^3/uL (1.6-8.6); Neutrophils % (auto) 67.3 % (37.0-80.0); Platelet Count (auto) 350 10^3/uL (140-450); Red Blood Cells 3.53 10^6/uL (4.5-5.90); Red Cell Distribution Width 14.1 % (11.8-14.3); White Blood Cell 6.9 10^3/uL (4.4-10.8)
[2019-12-30 12:04] LABS: BUN/Creatinine Ratio 23.1; Calcium 7.9 mg/dL (8.5-10.1); Magnesium 2.3 mg/dL (1.6-2.6); Potassium 4.5 mmol/L (3.5-5.1)
== END | disposition home or self-care (01) ==
LOC: CHF HDHVI 08:13
PROVIDERS: ATTEND Internal Medicine Cardiovascular Disease
DX: I11.0 Hypertensive heart disease with heart failure (principal); I50.23 Acute on chronic systolic (congestive) heart failure; D64.9 Anemia, unspecified; E83.40 Disorders of magnesium metabolism, unspecified; I25.10 Atherosclerotic heart disease of native coronary artery without angina pectoris; E78.5 Hyperlipidemia, unspecified; E03.9 Hypothyroidism, unspecified; E11.51 Type 2 diabetes mellitus with diabetic peripheral angiopathy without gangrene; J44.9 Chronic obstructive pulmonary disease, unspecified; Z79.899 Other long term (current) drug therapy
CPT/HCPCS: 36415; 80048; 83735; 83880; 85025; 96365; 96366; G0463; J1250

== ENCOUNTER → 2020-01-02 | Outpatient (CLI) | payer MEDICARE ==
[2020-01-02] VITALS (9 sets, daily range): BP systolic 109–147; BP diastolic 49–75
[2020-01-02 12:17] LABS: BUN/Creatinine Ratio 22.6; Potassium 4.6 mmol/L (3.5-5.1)
== END | disposition home or self-care (01) ==
LOC: CHF HDHVI 07:52
PROVIDERS: ATTEND Internal Medicine Cardiovascular Disease
DX: I11.0 Hypertensive heart disease with heart failure (principal); I50.23 Acute on chronic systolic (congestive) heart failure; R53.83 Other fatigue; I25.10 Atherosclerotic heart disease of native coronary artery without angina pectoris; I42.8 Other cardiomyopathies; J44.9 Chronic obstructive pulmonary disease, unspecified; E78.5 Hyperlipidemia, unspecified; E03.9 Hypothyroidism, unspecified; E11.51 Type 2 diabetes mellitus with diabetic peripheral angiopathy without gangrene; Z79.899 Other long term (current) drug therapy
CPT/HCPCS: 36415; 80048; 83880; 96365; 96366; G0463; J1250

== ENCOUNTER → 2020-01-06 | Outpatient (CLI) | payer MEDICARE ==
[2020-01-06] VITALS (9 sets, daily range): BP systolic 113–144; BP diastolic 54–65
[~2020-01-06] MED LIST changes: +CYANOCOBALAMIN (B-12) 1000 MCG/1 ML VIAL IM ONE; +CYANOCOBALAMIN (B-12) 1000 MCG/1 ML VIAL ONE
--- NOTE | 2020-01-06 07:45 | NUR ---
CLINIC PT ARRIVED TO THE CHF CLINIC FOR WEEKLY CHF EVAL AND TX PER MD ORDERS. A/OX4, AMBULATORY. BREATHING IS EVEN AND UNLABORED.
--- NOTE | 2020-01-06 08:19 | NUR ---
IV insertion IV access obtained, via clean sterile technique by inserting 22 gauge catheter at after 3 attempt(s). IV secured properly. No trauma to site. Patient tolerated procedure well. NOTE 1 UNSUCCESSFUL ATTEMPT BY BIJAL COLEY 1 UNSUCCESSFUL ATTEMPT BY SHAI AVALOS INSERTED BY SHAI AVALOS
--- NOTE | 2020-01-06 08:26 | NUR ---
DOBUTAMINE IV STARTED @ 3MCG/KG/MIN PER MD ORDERS. PT CONNECTED TO DEFIBRILLATOR PRE INFUSION STRIP RAN SR 73. VSS. WILL CONTINUE TO MONITOR.
--- NOTE | 2020-01-06 09:53 | NUR ---
PT TOLERATING DOBUTAMINE INFUSION. IV SITE BENIGN. VSS. WILL CONTINUE TO MONITOR.
--- NOTE | 2020-01-06 11:35 | NUR ---
Discharge Instructions See e-MAR for any mediations given with this visit. Patient education given on disease process. Patient verbalized understanding. Previous labs reviewed. Patient discharged in stable condition with after care instructions and follow up appointment ON MON NOTE DOBUTAMINE IV [id number] ADMIN BY BIJAL COLEY VIT B12 IM ADMIN BY BIJAL Madird DELTOID LOT# [id number] EXP 09/07
== END | disposition home or self-care (01) ==
LOC: CHF HDHVI 07:52
PROVIDERS: ATTEND Internal Medicine Cardiovascular Disease
DX: I11.0 Hypertensive heart disease with heart failure (principal); I50.23 Acute on chronic systolic (congestive) heart failure; R53.83 Other fatigue; I25.10 Atherosclerotic heart disease of native coronary artery without angina pectoris; I42.8 Other cardiomyopathies; I73.9 Peripheral vascular disease, unspecified; J44.9 Chronic obstructive pulmonary disease, unspecified; E78.5 Hyperlipidemia, unspecified; E03.9 Hypothyroidism, unspecified; E11.51 Type 2 diabetes mellitus with diabetic peripheral angiopathy without gangrene; J90 Pleural effusion, not elsewhere classified; Z79.899 Other long term (current) drug therapy
CPT/HCPCS: 96365; 96366; 96372; G0463; J1250; J3420

== ENCOUNTER → 2020-01-08 | Outpatient (CLI) | payer MEDICARE ==
[2020-01-08] VITALS (8 sets, daily range): BP systolic 133–145; BP diastolic 56–72
[~2020-01-08] VITALS: Ht 30.5 cm; Wt 78.9 kg
[~2020-01-08] MED LIST changes: -CYANOCOBALAMIN (B-12) 1000 MCG/1 ML VIAL IM ONE; -CYANOCOBALAMIN (B-12) 1000 MCG/1 ML VIAL ONE
--- NOTE | 2020-01-08 07:40 | NUR ---
Patient in clinic for scheduled infusion. Patient is AAOx4, ambulatory, breathing even and unlabored.
--- NOTE | 2020-01-08 08:30 | NUR ---
Patient connected to defibrillator for monitoring during infusion.
--- NOTE | 2020-01-08 08:41 | NUR ---
IV insertion IV access obtained, via clean sterile technique by inserting 22 gauge catheter at RAC after 1 attempt(s). IV secured properly. No trauma to site. Patient tolerated procedure well.
--- NOTE | 2020-01-08 10:12 | NUR ---
Dr Kirkland updated patient that he spoke with the audio installer he referred the patient to and that he will contact the patient.
--- NOTE | 2020-01-08 11:00 | NUR ---
Patient connected to monitor, talking with staff and other patients, breathing even and unlabored. Will continue to monitor.
[2020-01-08 12:14] LABS: Basophils # (auto) 0 10 ^3/uL (0-0.2); Basophils % (auto) 0.7 % (0.0-2.0); Eosinophils # (auto) 0.1 10 ^3/uL (0-0.8); Eosinophils % (auto) 0.8 % (0.0-7.0); Hematocrit 36.4 % (41.0-53.0); Hemoglobin 12.6 g/dL (13.5-17.5); Lymphocytes # (auto) 1.6 10 ^3/uL (0.4-5.4); Lymphocytes % (auto) 23.1 % (10.0-50.0); Mean Corpuscular Hemoglobin 32.2 pg (28.0-32.0); Mean Corpuscular Hgb Conc. 34.5 g/dL (32.0-36.0); Mean Corpuscular Volume 93.2 fL (80.0-100.0); Monocytes # (auto) 0.5 10 ^3/uL (0-1.3); Monocytes % (auto) 7.9 % (0.0-12.0); Neutrophils # (auto) 4.7 10 ^3/uL (1.6-8.6); Neutrophils % (auto) 67.5 % (37.0-80.0); Nucleated Red Blood Cells % 0.1 %; Platelet Count (auto) 380 10^3/uL (140-450); Red Blood Cells 3.91 10^6/uL (4.5-5.90); Red Cell Distribution Width 13.8 % (11.8-14.3)
--- NOTE | 2020-01-08 12:15 | NUR ---
IV removal IV DC'd with sterile technique, catheter fully intact. Pressure dressing applied to site. Patient tolerated procedure well.
[2020-01-08 12:16] LABS: Calcium 8.4 mg/dL (8.5-10.1); Magnesium 3.2 mg/dL (1.6-2.6); Potassium 4.2 mmol/L (3.5-5.1)
[2020-01-08 12:19] LABS: BUN/Creatinine Ratio 22.8
--- NOTE | 2020-01-08 12:29 | NUR ---
CHF Clinic Discharge Instructions See e-MAR for any mediations given with this visit. Patient education given on disease process. Patient verbalized understanding. Previous labs reviewed. Patient discharged in stable condition with after care instructions and follow up appointment. Note Dobutamine [id number] admin by Katherine CLOEY.
== END | disposition home or self-care (01) ==
LOC: CHF HDHVI 08:01
PROVIDERS: ATTEND Internal Medicine Cardiovascular Disease
DX: I11.0 Hypertensive heart disease with heart failure (principal); I50.42 Chronic combined systolic (congestive) and diastolic (congestive) heart failure; I25.10 Atherosclerotic heart disease of native coronary artery without angina pectoris; D64.9 Anemia, unspecified; E83.40 Disorders of magnesium metabolism, unspecified; R89.9 Unspecified abnormal finding in specimens from other organs, systems and tissues; E11.51 Type 2 diabetes mellitus with diabetic peripheral angiopathy without gangrene; E78.5 Hyperlipidemia, unspecified; J44.9 Chronic obstructive pulmonary disease, unspecified; E03.9 Hypothyroidism, unspecified; Z79.899 Other long term (current) drug therapy
CPT/HCPCS: 36415; 80048; 83735; 83880; 85025; 96365; 96366; G0463; J1250

== ENCOUNTER → 2020-01-14 | Outpatient (CLI) | payer MEDICARE ==
[2020-01-14] VITALS (9 sets, daily range): BP systolic 114–133; BP diastolic 49–62
--- NOTE | 2020-01-14 08:00 | NUR ---
CLINIC PT ARRIVED TO THE CHF CLINIC FOR WEEKLY CHF EVAL AND TX. A/OX4, AMBULATORY. BREATHING IS EVEN AND UNLABORED.
--- NOTE | 2020-01-14 08:20 | NUR ---
DOBUTAMINE IV STARTED @ 3MCG/KG/MIN PER MD ORDERS. VSS. WILL CONTINUE TO MONITOR.
--- NOTE | 2020-01-14 09:38 | NUR ---
PT TOLERATING DOBUTAMINE INFUSION. IV SITE BENIGN. VSS. WILL CONTINUE TO MONITOR.
--- NOTE | 2020-01-14 11:29 | NUR ---
Discharge Instructions See e-MAR for any mediations given with this visit. Patient education given on disease process. Patient verbalized understanding. Previous labs reviewed. Patient discharged in stable condition with after care instructions and follow up appointment ON MONDAY. NOTE DOBUTAMINE IV [id number] ADMIN BY CICI COLEY
== END | disposition home or self-care (01) ==
LOC: CHF HDHVI 08:09
PROVIDERS: ATTEND Internal Medicine Cardiovascular Disease
DX: I11.0 Hypertensive heart disease with heart failure (principal); I50.42 Chronic combined systolic (congestive) and diastolic (congestive) heart failure; J44.9 Chronic obstructive pulmonary disease, unspecified; E03.9 Hypothyroidism, unspecified; E83.40 Disorders of magnesium metabolism, unspecified; E11.51 Type 2 diabetes mellitus with diabetic peripheral angiopathy without gangrene; R53.83 Other fatigue; E78.5 Hyperlipidemia, unspecified; Z79.899 Other long term (current) drug therapy
CPT/HCPCS: 36415; 83735; 83880; 84443; 96365; 96366; G0463; J1250

== ENCOUNTER → 2020-01-17 | Outpatient (CLI) | payer MEDICARE ==
[~2020-01-17] VITALS: Ht 30.5 cm; Wt 79.4 kg
--- NOTE | 2020-01-17 08:30 | NUR ---
PT. TO CHF CLINIC FOR DOBUTAMINE INFUSION PER MD ORDER. PT. WAS AT [facility] ALL DAY YESTERDAY, SEEING DR. MACIAS, AND WAS GIVEN DX:OF AL AMYLOIDOSIS BY DR. MACIAS AND REFERRED TO ANOTHER DR. NAGY AT [facility]. PT. ALSO PRESENTED WITH AN ORDER FOR DOPPLER OF LEFT UPPER EXT. AFTER HAVING SOME SKIN CANCER REMOVED BY DR. COVINGTON ON 01/08. R/O DVT. BOTH UPPER EXT. SLIGHTLY EDEMATOUS, WITH PT. STATING, MORE FLUID OVERLOAD FROM BEING IN CAR ALL DAY. MD ORDERS RECEIVED AND CARRIED OUT. SEE NSG ASSESS.
--- NOTE | 2020-01-17 08:40 | NUR ---
IV insertion IV access obtained, via clean sterile technique by inserting 22G gauge catheter at after attempt(s). IV secured properly. No trauma to site. Patient tolerated procedure well. LABS DRAWN AND SENT.
--- NOTE | 2020-01-17 08:42 | NUR ---
Clinic Provider Clinic Provider into see pt with new orders received and carried out. Dobutamine gtt started at {3}mcg/kg/hr per MD order.
--- NOTE | 2020-01-17 10:00 | NUR ---
PT. RESTING WITH NO C/O. VSS FURTHER DISCUSSION OF PT. FOLLOW UP AT [facility] RESULTED IN PHONE CALL FROM DR. BURGOS'S OFFICE FOR IMMEDIATE FOLLOW UP PER DR. MACIAS, AND PT. IS TO CALL DR. NGUYEN MENDOZA FOR ONCOLOGY REFERRAL. WORKING ON GETTING US OF LEFT UPPER EXTREM. PER DR. MACIAS ORDER, POST RECENT CARCINOMA REMOVAL OF LEFT INNER FOREARM. BY DR. COVINGTON 8 DAYS AGO.PULSES DISTALLY WNL AND EQUAL BILAT. RADIAL PULSES.
--- NOTE | 2020-01-17 11:00 | NUR ---
PT'S RECENT VISIT TO [facility] DISCUSSED WITH DR. JAMES, WITH APPT. MADE FOR NEXT MONDAY AM WHEN PT. IS IN CLINIC. AWARE THAT HE IS NOW AWARE THAT DR BURGOS'S OFFICE CALLED PT. WHILE HERE IN CLINIC.
[2020-01-17 11:55] LABS: Basophils # (auto) 0.1 10 ^3/uL (0-0.2); Eosinophils # (auto) 0.1 10 ^3/uL (0-0.8); Eosinophils % (auto) 1.7 % (0.0-7.0); Hematocrit 32.3 % (41.0-53.0); Hemoglobin 10.7 g/dL (13.5-17.5); Lymphocytes # (auto) 1.6 10 ^3/uL (0.4-5.4); Lymphocytes % (auto) 24.4 % (10.0-50.0); Mean Corpuscular Hemoglobin 31.2 pg (28.0-32.0); Mean Corpuscular Hgb Conc. 33.2 g/dL (32.0-36.0); Mean Corpuscular Volume 94.1 fL (80.0-100.0); Monocytes # (auto) 0.5 10 ^3/uL (0-1.3); Monocytes % (auto) 8.4 % (0.0-12.0); Neutrophils # (auto) 4.2 10 ^3/uL (1.6-8.6); Neutrophils % (auto) 64.5 % (37.0-80.0); Nucleated Red Blood Cells % 0.1 %; Platelet Count (auto) 418 10^3/uL (140-450); Red Blood Cells 3.44 10^6/uL (4.5-5.90); Red Cell Distribution Width 14.1 % (11.8-14.3); White Blood Cell 6.5 10^3/uL (4.4-10.8)
[2020-01-17 12:00] VITALS: BP 134/58
--- NOTE | 2020-01-17 12:00 | NUR ---
IV removal IV DC'd with sterile technique, catheter fully intact. Pressure dressing applied to site. Patient tolerated procedure well. Discharged with aftercare instructions per MD. NOTE:
[2020-01-17 12:09] LABS: BUN/Creatinine Ratio 25.4; Calcium 8.1 mg/dL (8.5-10.1); Potassium 4.8 mmol/L (3.5-5.1)
--- NOTE | 2020-01-17 12:27 | NUR ---
Discharge Instructions See e-MAR for any mediations given with this visit. Patient education given on disease process. Patient verbalized understanding. Previous labs reviewed. Patient discharged in stable condition with after care instructions and follow up appointment. THIS RN WITH PT. WHEN HE PLACED CALL TO DR. BURGOS'S OFFICE FOR FOLLOW UP APPT. VM LEFT BY PT. PT. TO RTC WITH ALL OF DIAGNOSTIC AND LAB RESULTS. WORKING ON ORDER FOR OF [place] WITH OUTSIDE FACILITY. THIS RN WILL FOLLOW UP WITH PT.
== END | disposition home or self-care (01) ==
LOC: CHF HDHVI 08:27
PROVIDERS: ATTEND Internal Medicine Cardiovascular Disease
DX: I11.0 Hypertensive heart disease with heart failure (principal); I50.43 Acute on chronic combined systolic (congestive) and diastolic (congestive) heart failure; D64.9 Anemia, unspecified; I25.10 Atherosclerotic heart disease of native coronary artery without angina pectoris; I73.9 Peripheral vascular disease, unspecified; I42.8 Other cardiomyopathies; I35.0 Nonrheumatic aortic (valve) stenosis; J44.9 Chronic obstructive pulmonary disease, unspecified; E78.5 Hyperlipidemia, unspecified; E03.9 Hypothyroidism, unspecified; E11.51 Type 2 diabetes mellitus with diabetic peripheral angiopathy without gangrene; J90 Pleural effusion, not elsewhere classified; Z79.899 Other long term (current) drug therapy
CPT/HCPCS: 36415; 80048; 83880; 85025; 96365; 96366; G0463; J1250

== ENCOUNTER → 2020-01-20 | Outpatient (CLI) | payer MEDICARE ==
[2020-01-20] VITALS (9 sets, daily range): BP systolic 123–141; BP diastolic 49–58
[~2020-01-20] MED LIST changes: +CYANOCOBALAMIN (B-12) 1000 MCG/1 ML VIAL IM ONE; +CYANOCOBALAMIN (B-12) 1000 MCG/1 ML VIAL ONE
--- NOTE | 2020-01-20 08:00 | NUR ---
CLINIC PT ARRIVED TO THE CHF CLINIC FOR WEEKLY CHF EVAL AND TX PER MD ORDERS. A/OX4, AMBULATORY. BREATHING IS EVEN AND UNLABORED.
--- NOTE | 2020-01-20 08:24 | NUR ---
DOBUTAMINE IV STARTED @ 3MCG/KG/MIN PER MD ORDERS. VSS. WILL CONTINUE TO MONITOR.
--- NOTE | 2020-01-20 09:51 | NUR ---
PT TOLERATING DOBUTAMINE INFUSION. IV SITE BENIGN. VSS. WILL CONTINUE TO MONITOR.
--- NOTE | 2020-01-20 10:20 | NUR ---
TO BACK OFFICE WITH MD JAMES FOR REVIEW AND EVAL. Maylin/MILLA, AMBULATORY. Addendum: 01/20/20 at 1128 by BIJAL HO RN RN MT PT TO MD JAMES @ 5026
--- NOTE | 2020-01-20 11:20 | NUR ---
PT RETURNED FROM VISIT WITH MD JAMES. A/OX4, AMBULATORY. PT RESTARTED ON DOBUTAMINE INFUSION @ 3MCG/KG/MIN
--- NOTE | 2020-01-20 11:30 | NUR ---
WOUND CARE S/P BASAL CELL CARCINOMA SUTURE REMOVAL. VIEWED BY MD JAMES. SUTURES REMOVED BY CICI COLEY
[2020-01-20 11:59] LABS: Potassium 4.8 mmol/L (3.5-5.1)
--- NOTE | 2020-01-20 12:03 | NUR ---
Discharge Instructions See e-MAR for any mediations given with this visit. Patient education given on disease process. Patient verbalized understanding. Previous labs reviewed. Patient discharged in stable condition with after care instructions and follow up appointment ON . NOTE DOBUTAMINE IV [id number] VIT B12 IM L DELTOID ADMIN BY CICI COLEYSWATCH CHECKER ADMIN BY CICI COLEY
== END | disposition home or self-care (01) ==
LOC: CHF HDHVI 08:12
PROVIDERS: ATTEND Internal Medicine Cardiovascular Disease
DX: I11.0 Hypertensive heart disease with heart failure (principal); I50.42 Chronic combined systolic (congestive) and diastolic (congestive) heart failure; I25.10 Atherosclerotic heart disease of native coronary artery without angina pectoris; I42.8 Other cardiomyopathies; I73.9 Peripheral vascular disease, unspecified; J44.9 Chronic obstructive pulmonary disease, unspecified; J90 Pleural effusion, not elsewhere classified; R94.4 Abnormal results of kidney function studies; E87.6 Hypokalemia; E78.5 Hyperlipidemia, unspecified; E11.51 Type 2 diabetes mellitus with diabetic peripheral angiopathy without gangrene; Z79.899 Other long term (current) drug therapy
CPT/HCPCS: 36415; 82565; 84132; 84520; 96365; 96366; 96372; G0463; J1250; J3420

== ENCOUNTER → 2020-01-31 | Outpatient (CLI) | payer MEDICARE ==
[~2020-01-31] MED LIST changes: -CYANOCOBALAMIN (B-12) 1000 MCG/1 ML VIAL IM ONE; -CYANOCOBALAMIN (B-12) 1000 MCG/1 ML VIAL ONE; -DOBUTamine 1000MCG/ML 250 ML IV ONE
== END | disposition home or self-care (01) ==
LOC: LAB 11:54
PROVIDERS: ATTEND Internal Medicine Cardiovascular Disease
DX: R94.4 Abnormal results of kidney function studies (principal)
CPT/HCPCS: 36415; 82565

== ENCOUNTER → 2020-02-03 | Outpatient (CLI) | payer MEDICARE ==
[2020-02-03] VITALS (11 sets, daily range): BP systolic 112–151; BP diastolic 51–62
[~2020-02-03] MED LIST changes: +DOBUTamine 1000MCG/ML 250 ML IV ONE; +IOHEXOL 350 MG/ML 100ML IJ ONE
--- NOTE | 2020-02-03 08:15 | NUR ---
CLINIC PT ARRIVED TO THE CHF CLINIC FOR CT R ARM AND CHF EVAL AND TX PER MD ORDERS. A/OX4 AMBULATORY. THE PT HAS C/O R ARM PAIN 01/26 WHERE THERE IS SOME R ARM SWELLING. 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 US RESULTS ARE NEGATIVE FOR DVT. BREATHING IS EVEN AND UNLABORED. PT IS WEARING BILATERAL COMPRESSION STALKINGS AND STATES THE IS EDEMA WHEN THEY ARE NOT PRESENT.
--- NOTE | 2020-02-03 08:40 | NUR ---
IV insertion IV access obtained, via clean sterile technique by inserting 20 gauge catheter at LFA after 3 attempt(s). IV secured properly. No trauma to site. Patient tolerated procedure well. NOTE 1 UNSUCCESSFUL ATTEMPT BY BIJAL COLEY 1 UNSUCCESSFUL ATTEMPT BY SHAI AVALOS INSERTED BY [facility] TECH
--- NOTE | 2020-02-03 08:45 | NUR ---
TO CT WITH CEDRIC MORTGAGE PROFESSIONAL
--- NOTE | 2020-02-03 08:55 | NUR ---
RETURNED FROM CT. A/OX4 AMBULATORY. BREATHING IS EVEN AND UNLABORED.
--- NOTE | 2020-02-03 09:40 | NUR ---
Dr. Isael Sahu at bedside Dr. Sahu at bedside for exam. Additional orders received and carried out. PT GIVEN INSTRUCTIONS TO STOP XARELTO AND THE USE HEAT PADS ON SITE. PT ALSO GIVEN HOME PAIN MEDICATIONS TO CONTROL PAIN.
--- NOTE | 2020-02-03 10:16 | NUR ---
DOBUTAMINE IV STARTED @ 3MCG/KG/MIN PER MD ORDERS. PT IS CONNECTED TO CORRESPONDENCE COORDINATOR SR 76. VSS. WILL CONTINUE TO MONITOR.
--- NOTE | 2020-02-03 11:17 | NUR ---
IV removal IV DC'd with sterile technique, catheter fully intact. Pressure dressing applied to site. Patient tolerated procedure well. Discharged with aftercare instructions per MD. NOTE: REMOVED BY BIJAL COLEY Addendum: 02/03/20 at 1321 by BIJAL HO RN RN VA IV REMOVED @ 6087 NOTE 1117
--- NOTE | 2020-02-03 13:10 | NUR ---
PT TOLERATING DOBUTAMINE INFUSION. IV SITE BENIGN .VSS WILL CONTINUE TO MONITOR.
--- NOTE | 2020-02-03 13:20 | NUR ---
Discharge Instructions See e-MAR for any mediations given with this visit. Patient education given on disease process. Patient verbalized understanding. Previous labs reviewed. Patient discharged in stable condition with after care instructions and follow up appointment ON MON. NOTE DOBUTAMINE IV [id number] ADMIN BY BIJAL COLEY
== END | disposition home or self-care (01) ==
LOC: Rad HDHVI 08:20
PROVIDERS: ATTEND Internal Medicine Cardiovascular Disease
DX: I11.0 Hypertensive heart disease with heart failure (principal); I50.22 Chronic systolic (congestive) heart failure; I25.10 Atherosclerotic heart disease of native coronary artery without angina pectoris; I42.8 Other cardiomyopathies; I73.9 Peripheral vascular disease, unspecified; E03.9 Hypothyroidism, unspecified; J44.9 Chronic obstructive pulmonary disease, unspecified; E78.5 Hyperlipidemia, unspecified; E11.51 Type 2 diabetes mellitus with diabetic peripheral angiopathy without gangrene; J90 Pleural effusion, not elsewhere classified; Z79.899 Other long term (current) drug therapy
CPT/HCPCS: 70498; 96365; 96366; G0463; J1250; Q9967

== ENCOUNTER → 2020-02-05 | Outpatient (CLI) | payer MEDICARE ==
[~2020-02-05] VITALS: Ht 30.5 cm; Wt 76.8 kg
[2020-02-05] VITALS (9 sets, daily range): BP systolic 121–150; BP diastolic 48–63
[~2020-02-05] MED LIST changes: -IOHEXOL 350 MG/ML 100ML IJ ONE
--- NOTE | 2020-02-05 08:00 | NUR ---
CLINIC PT ARRIVED TO THE CHF CLINIC FOR WEEKLY CHF EVAL AND TX. A/OX4, AMBULATORY. PT HAS C/O PAIN 8/10 IN THE RIGHT ARM, NON RADIATING. HE TOOK 2 HOME 500MG TYLENOL TO CONTROL THE PAIN. PT HAS PRESCRIPTION FOR [facility] BUT HAS BEEN UNABLE TO FILL THE PRESCRIPTION. THE PT IS WEARING HOME COMPRESSION STALKING AND STATES THAT WITHOUT THEM HE GETS EXTREME EDEMA. NONE VISIBLE WITH STALKINGS. PT HAS AND INCISION SITE ON THE R SHOULDER FROM HIS AORTIC VALVE REPLACEMENT DONE ON 01/24/20. INCISION IS CLEAN, NO DRAINAGE, NO ODOR AND ALMA STRIPS ARE IN PLACE. R ARM IS EDEMISIS COMPARED TO THE L ARM, NON PITTING. PT STATED HE PUTS HEAT ON THE ARM AT HOME BUT IT INCREASES THE LEVEL OF PAIN.
--- NOTE | 2020-02-05 08:13 | NUR ---
IV insertion IV access obtained, via clean sterile technique by inserting 22 gauge catheter at after 1 attempt(s). IV secured properly. No trauma to site. Patient tolerated procedure well. LABS DRAWN AND SENT. NOTE INSERTED BY CICI COLEY
--- NOTE | 2020-02-05 08:19 | NUR ---
DOBUTAMINE IV STARTED @ 3MCG/KG/MIN PER MD ORDERS. VSS. WILL CONTINUE TO MONITOR. Addendum: 02/05/20 at 1008 by BIJAL HO RN RN IN PT CONNECTED TO GENETICS TEACHER PRE INFUSION SR 77
--- NOTE | 2020-02-05 10:01 | NUR ---
PT TOLERATING DOBUTAMINE INFUSION. IV SITE BENIGN. VSS. WILL CONTINUE TO MONITOR.
--- NOTE | 2020-02-05 11:33 | NUR ---
Dr. Isael Sahu at bedside Dr. Sahu at bedside for exam. Additional orders received. PT INSTRUCTED TO USE ICE ON R ANTERIOR CHEST WRAPPED IN A TOWEL, NO HEAT. PT TO CONTINUE TAKING HOME DEMODEX BID. MD AWARE OF EDEMA AND WEEPING IN THE PT LOWER EXTREMITIES.
--- NOTE | 2020-02-05 11:39 | NUR ---
Discharge Instructions See e-MAR for any mediations given with this visit. Patient education given on disease process. Patient verbalized understanding. Previous labs reviewed. Patient discharged in stable condition with after care instructions and follow up appointment ON MONDAY. NOTE DOBUTAMINE IV [id number] ADMIN BY BIJAL COLEY
[2020-02-05 12:18] LABS: Calcium 8.2 mg/dL (8.5-10.1); Potassium 4.9 mmol/L (3.5-5.1)
[2020-02-05 12:22] LABS: BUN/Creatinine Ratio 13.1; Magnesium 2.6 mg/dL (1.6-2.6)
[2020-02-05 12:31] LABS: Basophils # (auto) 0.1 10 ^3/uL (0-0.2); Eosinophils # (auto) 0.1 10 ^3/uL (0-0.8); Lymphocytes # (auto) 2.1 10 ^3/uL (0.4-5.4); Monocytes # (auto) 0.7 10 ^3/uL (0-1.3)
[2020-02-05 12:32] LABS: Eosinophils % (auto) 1.2 % (0.0-7.0); Hematocrit 26.1 % (41.0-53.0); Lymphocytes % (auto) 19.6 % (10.0-50.0); Mean Corpuscular Hemoglobin 32.1 pg (28.0-32.0); Mean Corpuscular Hgb Conc. 34.6 g/dL (32.0-36.0); Mean Corpuscular Volume 92.7 fL (80.0-100.0); Neutrophils # (auto) 7.9 10 ^3/uL (1.6-8.6); Neutrophils % (auto) 72.2 % (37.0-80.0); Platelet Count (auto) 518 10^3/uL (140-450); Red Blood Cells 2.81 10^6/uL (4.5-5.90); Red Cell Distribution Width 13.7 % (11.8-14.3); White Blood Cell 10.9 10^3/uL (4.4-10.8)
== END | disposition home or self-care (01) ==
LOC: CHF HDHVI 08:10
PROVIDERS: ATTEND Internal Medicine Cardiovascular Disease
DX: I11.0 Hypertensive heart disease with heart failure (principal); I50.42 Chronic combined systolic (congestive) and diastolic (congestive) heart failure; D64.9 Anemia, unspecified; E83.40 Disorders of magnesium metabolism, unspecified; I25.10 Atherosclerotic heart disease of native coronary artery without angina pectoris; I42.8 Other cardiomyopathies; J44.9 Chronic obstructive pulmonary disease, unspecified; E78.5 Hyperlipidemia, unspecified; E03.9 Hypothyroidism, unspecified; E11.51 Type 2 diabetes mellitus with diabetic peripheral angiopathy without gangrene; Z79.899 Other long term (current) drug therapy
CPT/HCPCS: 36415; 80048; 83735; 83880; 85025; 96365; 96366; G0463; J1250

== ENCOUNTER → 2020-02-10 | Outpatient (CLI) | payer MEDICARE ==
[2020-02-10] VITALS (9 sets, daily range): BP systolic 107–138; BP diastolic 44–60
[~2020-02-10] VITALS: Ht 30.5 cm; Wt 77.2 kg
[~2020-02-10] MED LIST changes: +ALBUTEROL SULF 2.5 MG/0.5ML(0.5%) NEB SOLN NEB ONE; +ALBUTEROL SULF 2.5 MG/0.5ML(0.5%) NEB SOLN ONE
--- NOTE | 2020-02-10 08:15 | NUR ---
CLINIC PT ARRIVED TO THE CHF CLINIC FOR WEEKLY CHF EVAL AND TX. A/OX4, AMBULATORY. PT HAS 1+ NON PITTING EDEMA TOP THE UPPER EXTREMITIES., AND IS WEARING COMPRESSION STOCKINGS TO THE LOWER EXTREMITIES. THE PT STATED THAT WITHOUT THE STOCKINGS THE EDEMA WILL INCREASE. NO VISIBLE EDEMA AT THIS TIME. BREATHING IS EVEN AND UNLABORED.
--- NOTE | 2020-02-10 08:25 | NUR ---
IV insertion IV access obtained, via clean sterile technique by inserting 22 gauge catheter at LAC after 1 attempt(s). IV secured properly. No trauma to site. Patient tolerated procedure well. LABS DRAWN AND SENT. NOTE INSERTED BY CICI COLEY
--- NOTE | 2020-02-10 08:36 | NUR ---
DOBUTAMINE IV STARTED @ 3MCG/KG/MIN PER MD ORDERS. VSS. WILL CONTINUE TO MONITOR. Addendum: 02/10/20 at 1309 by BIJAL HO RN RN DE PT IS CONNECTED TO DIE OUT WORKER SR 82. NO ECTOPY.
--- NOTE | 2020-02-10 10:01 | NUR ---
PT TOLERATING DOBUTAMINE IV. IV SITE BENIGN. VSS. WILL CONTINUE TO MONITOR.
--- NOTE | 2020-02-10 11:45 | NUR ---
IV removal IV DC'd with sterile technique, catheter fully intact. Pressure dressing applied to site. Patient tolerated procedure well. Discharged with aftercare instructions per MD. NOTE: REMOVED BY RONAL COLEY
--- NOTE | 2020-02-10 12:00 | NUR ---
Discharge Instructions See e-MAR for any mediations given with this visit. Patient education given on disease process. Patient verbalized understanding. Previous labs reviewed. Patient discharged in stable condition with after care instructions and follow up appointment ON MONDAY. NOTE DOBUTAMINE IV [id number] ADMIN BY CICI COLEY Addendum: 02/10/20 at 1314 by BIJAL HO RN RN VT CARDIAC STRIP POST INFUSION SR 77
[2020-02-10 12:25] LABS: Basophils # (auto) 0.1 10 ^3/uL (0-0.2); Basophils % (auto) 1.1 % (0.0-2.0); Eosinophils # (auto) 0.1 10 ^3/uL (0-0.8); Hematocrit 27.1 % (41.0-53.0); Hemoglobin 9.4 g/dL (13.5-17.5); Lymphocytes # (auto) 1.4 10 ^3/uL (0.4-5.4); Lymphocytes % (auto) 20.6 % (10.0-50.0); Mean Corpuscular Hemoglobin 31.7 pg (28.0-32.0); Mean Corpuscular Hgb Conc. 34.7 g/dL (32.0-36.0); Mean Corpuscular Volume 91.4 fL (80.0-100.0); Monocytes # (auto) 0.6 10 ^3/uL (0-1.3); Neutrophils # (auto) 4.5 10 ^3/uL (1.6-8.6); Neutrophils % (auto) 68.3 % (37.0-80.0); Nucleated Red Blood Cells % 0.1 %; Platelet Count (auto) 424 10^3/uL (140-450); Red Blood Cells 2.97 10^6/uL (4.5-5.90); White Blood Cell 6.6 10^3/uL (4.4-10.8)
[2020-02-10 12:27] LABS: BUN/Creatinine Ratio 11.1; Potassium 4.7 mmol/L (3.5-5.1)
--- NOTE | 2020-02-10 16:20 | NUR ---
PT. RTC PER DR. JAMES AFTER HAVING US RT CHEST FOR PSEUDOANEURYSM RT CLAVICULAR AREA WITH C/O WORSENING SOB. CXR AND MED NEB TX ORDERED PER DR. JAMES. ORDERS RECEIVED AND CARRIED OUT.
--- NOTE | 2020-02-10 16:35 | NUR ---
PT. TO AND FROM XRAY. WATERS. MRD NEB TX STARTED PER MD ORDER.
--- NOTE | 2020-02-10 16:50 | NUR ---
MEDS: MED NEB TX COMPLETED WITH PT.STATING FEELING THAT HE IS BREATHING BETTER. LABS OF TODAY REVIEWED WITH PT., AND INSTRUCTED TO REDUCE DEMADEX TO 40MG IN AM AND 20MG IN PM. COPIES OF LABS GIVEN TO PT.
--- NOTE | 2020-02-10 17:10 | NUR ---
Discharge Instructions See e-MAR for any mediations given with this visit. Patient education given on disease process. Patient verbalized understanding. Previous labs reviewed. Patient discharged in stable condition with after care instructions and follow up appointment. PT. INSTRUCTED TO DECREASE FREE WATER AND INCREASE ELECTROLYTES. PT. TO RTC ON MONDAY.
== END | disposition home or self-care (01) ==
LOC: CHF HDHVI 08:19
PROVIDERS: ATTEND Internal Medicine Cardiovascular Disease
DX: I11.0 Hypertensive heart disease with heart failure (principal); I50.23 Acute on chronic systolic (congestive) heart failure; J44.9 Chronic obstructive pulmonary disease, unspecified; I25.10 Atherosclerotic heart disease of native coronary artery without angina pectoris; I42.8 Other cardiomyopathies; I73.9 Peripheral vascular disease, unspecified; E83.40 Disorders of magnesium metabolism, unspecified; E78.5 Hyperlipidemia, unspecified; E03.9 Hypothyroidism, unspecified; J90 Pleural effusion, not elsewhere classified; E11.51 Type 2 diabetes mellitus with diabetic peripheral angiopathy without gangrene; Z79.899 Other long term (current) drug therapy
CPT/HCPCS: 36415; 71046; 80048; 83735; 83880; 85025; 94640; 96365; 96366; G0463; J1250

== ENCOUNTER → 2020-02-10 | Outpatient (CLI) | payer MEDICARE ==
[~2020-02-10] MED LIST changes: -ALBUTEROL SULF 2.5 MG/0.5ML(0.5%) NEB SOLN NEB ONE; -ALBUTEROL SULF 2.5 MG/0.5ML(0.5%) NEB SOLN ONE; -DOBUTamine 1000MCG/ML 250 ML IV ONE
== END | disposition home or self-care (01) ==
LOC: XY 13:11
PROVIDERS: ATTEND Internal Medicine Cardiovascular Disease
DX: I72.9 Aneurysm of unspecified site (principal)

== ENCOUNTER → 2020-02-13 | Outpatient (CLI) | payer MEDICARE ==
[2020-02-13] VITALS (9 sets, daily range): BP systolic 140–153; BP diastolic 51–62
[~2020-02-13] MED LIST changes: +DOBUTamine 1000MCG/ML 250 ML IV ONE
--- NOTE | 2020-02-13 08:23 | NUR ---
CLINIC PT ARRIVED TO THE CHF CLINIC FOR WEEKLY CHF EVAL AND TX. A/OX4, AMBULATORY. BREATHING IS EVEN AND UNLABORED. PT HAS 1+ EDEMA TO THE R ARM WHICH IS AN IMPROVEMENT SINCE LAST VISIT ON 02/10/20. PT IS WEARING OWN COMPRESSION STOCKINGS WHICH HELPS CONTROL LOWER EXTREMITY EDEMA. NO EDEMA PRESENT WITH STOCKINGS.
--- NOTE | 2020-02-13 09:07 | NUR ---
DOBUTAMINE IV STARTED @ 3MCG/KG/MIN PER MD ORDERS. VSS. WILL CONTINUE TO MONITOR. PT IS CONNECTED TO ELECTROCARDIOGRAPH REPAIRER PRE INFUSION SR 77.
[2020-02-13 10:27] LABS: Albumin 2.1 g/dL (3.4-5.0); Calcium 8.3 mg/dL (8.5-10.1); Magnesium 2.8 mg/dL (1.6-2.6); Potassium 4.7 mmol/L (3.5-5.1)
[2020-02-13 10:30] LABS: BUN/Creatinine Ratio 14.2; Bilirubin, Total 0.2 mg/dL (0.2-1.0); Total Protein 5.5 g/dL (6.4-8.2)
--- NOTE | 2020-02-13 10:34 | NUR ---
PT TOLERATING DOBUTAMINE INFUSION. IV SITE BENIGN. VSS. WILL CONTINUE TO MONITOR.
--- NOTE | 2020-02-13 12:21 | NUR ---
Discharge Instructions See e-MAR for any mediations given with this visit. Patient education given on disease process. Patient verbalized understanding. Previous labs reviewed. Patient discharged in stable condition with after care instructions and follow up appointment ON MONDAY. NOTE DOBUTAMINE IV [id number] ADMIN BY BIJAL COLEY
== END | disposition home or self-care (01) ==
LOC: CHF HDHVI 08:39
PROVIDERS: ATTEND Internal Medicine Cardiovascular Disease
DX: I11.0 Hypertensive heart disease with heart failure (principal); I50.23 Acute on chronic systolic (congestive) heart failure; I25.10 Atherosclerotic heart disease of native coronary artery without angina pectoris; I42.8 Other cardiomyopathies; I73.9 Peripheral vascular disease, unspecified; J44.9 Chronic obstructive pulmonary disease, unspecified; E83.40 Disorders of magnesium metabolism, unspecified; E78.5 Hyperlipidemia, unspecified; J90 Pleural effusion, not elsewhere classified; E11.51 Type 2 diabetes mellitus with diabetic peripheral angiopathy without gangrene; Z79.899 Other long term (current) drug therapy
CPT/HCPCS: 36415; 80053; 83735; 96365; 96366; G0463; J1250

== ENCOUNTER → 2020-02-17 | Outpatient (CLI) | payer MEDICARE ==
[2020-02-17] VITALS (10 sets, daily range): BP systolic 118–145; BP diastolic 55–62
[~2020-02-17] MED LIST changes: +CYANOCOBALAMIN (B-12) 1000 MCG/1 ML VIAL IM ONE; +CYANOCOBALAMIN (B-12) 1000 MCG/1 ML VIAL ONE
--- NOTE | 2020-02-17 08:08 | NUR ---
CLINIC PT ARRIVED TO THE CHF CLINIC FOR WEEKLY CHF EVAL AND TX, A/OX4, AMBULATORY. PT HAS A DECREASE IN WT BY 2.2 LBS. STATED HE JUST FINISHED KEFLEX TX AND HAD DIARRHEA. BREATHING IS EVEN AND UNLABORED.
--- NOTE | 2020-02-17 08:30 | NUR ---
IV insertion IV access obtained, via clean sterile technique by inserting 22 gauge catheter at LFA after 1 attempt(s). IV secured properly. No trauma to site. Patient tolerated procedure well. LABS DRAWN AND SENT. NOTE INSERTED BY CICI COLEY
--- NOTE | 2020-02-17 08:37 | NUR ---
DOBUTAMINE IV STARTED @ 3MCG/KG/MIN PER MD ORDERS. VSS. WILL CONTINUE TO MONITOR. PT IS CONNECTED TO BAKER BISCUIT. SR 76
--- NOTE | 2020-02-17 10:05 | NUR ---
DOBUTAMINE PAUSED PT TO BACK OFFICE FOR ECHO. SR 86, A/OX4 AMBULATORY. BREATHING IS EVEN AND UNLABORED WHEN PT LEFT UNIT.
--- NOTE | 2020-02-17 10:29 | NUR ---
PT RETURNED FOR ECHO, A/OX4, AMBULATORY, BREATHING IS EVEN AND UNLABORED. PT TOLERATED PROCEDURE. PT IS RECONNECTED TO DOCUMENTATION CONSULTANT SR 76, DOBUTAMINE RESTARTED @ 3/MCG/KG/MIN
--- NOTE | 2020-02-17 11:27 | NUR ---
PT TOLERATING DOBUTAMINE INFUSION. IV SITE BENIGN. VSS. WILL CONTINUE TO MONITOR.
[2020-02-17 12:08] LABS: Basophils # (auto) 0.1 10 ^3/uL (0-0.2); Basophils % (auto) 1.4 % (0.0-2.0); Eosinophils # (auto) 0.1 10 ^3/uL (0-0.8); Eosinophils % (auto) 1.7 % (0.0-7.0); Hemoglobin 9.5 g/dL (13.5-17.5); Lymphocytes # (auto) 1.4 10 ^3/uL (0.4-5.4); Lymphocytes % (auto) 24.8 % (10.0-50.0); Mean Corpuscular Hemoglobin 32.5 pg (28.0-32.0); Mean Corpuscular Hgb Conc. 35.2 g/dL (32.0-36.0); Mean Corpuscular Volume 92.3 fL (80.0-100.0); Monocytes # (auto) 0.5 10 ^3/uL (0-1.3); Monocytes % (auto) 8.1 % (0.0-12.0); Neutrophils # (auto) 3.6 10 ^3/uL (1.6-8.6); Platelet Count (auto) 379 10^3/uL (140-450); Red Blood Cells 2.93 10^6/uL (4.5-5.90); Red Cell Distribution Width 14.3 % (11.8-14.3); White Blood Cell 5.6 10^3/uL (4.4-10.8)
--- NOTE | 2020-02-17 12:13 | NUR ---
Discharge Instructions See e-MAR for any mediations given with this visit. Patient education given on disease process. Patient verbalized understanding. Previous labs reviewed. Patient discharged in stable condition with after care instructions and follow up appointment ON MON. NOTE DOBUTAMINE IV [id number] ADMIN BY CICI COLEY VIT B12 IM L DELTOID ADMIN BY CICI COLEY LOT#[id number] EXP 09/07
[2020-02-17 12:20] LABS: Calcium 7.9 mg/dL (8.5-10.1); Magnesium 2.7 mg/dL (1.6-2.6); Potassium 4.7 mmol/L (3.5-5.1)
[2020-02-17 12:25] LABS: BUN/Creatinine Ratio 13.9; Bilirubin, Total 0.2 mg/dL (0.2-1.0); Total Protein 5.4 g/dL (6.4-8.2)
== END | disposition home or self-care (01) ==
LOC: CHF HDHVI 08:15
PROVIDERS: ATTEND Internal Medicine Cardiovascular Disease
DX: I11.0 Hypertensive heart disease with heart failure (principal); I50.33 Acute on chronic diastolic (congestive) heart failure; D64.9 Anemia, unspecified; I25.10 Atherosclerotic heart disease of native coronary artery without angina pectoris; I42.8 Other cardiomyopathies; I73.9 Peripheral vascular disease, unspecified; E83.40 Disorders of magnesium metabolism, unspecified; R53.83 Other fatigue; J44.9 Chronic obstructive pulmonary disease, unspecified; E78.5 Hyperlipidemia, unspecified; J90 Pleural effusion, not elsewhere classified; E11.51 Type 2 diabetes mellitus with diabetic peripheral angiopathy without gangrene; E03.9 Hypothyroidism, unspecified; Z79.899 Other long term (current) drug therapy
CPT/HCPCS: 36415; 80053; 83735; 83880; 85025; 93306; 96365; 96366; 96372; G0463; J1250; J3420

== ENCOUNTER → 2020-02-19 | Outpatient (CLI) | payer MEDICARE ==
[2020-02-19] VITALS (9 sets, daily range): BP systolic 127–156; BP diastolic 54–69
[~2020-02-19] VITALS: Ht 30.5 cm; Wt 72.3 kg
[~2020-02-19] MED LIST changes: -CYANOCOBALAMIN (B-12) 1000 MCG/1 ML VIAL IM ONE; -CYANOCOBALAMIN (B-12) 1000 MCG/1 ML VIAL ONE
[2020-02-19 09:37] LABS: Basophils # (auto) 0.1 10 ^3/uL (0-0.2); Basophils % (auto) 1.3 % (0.0-2.0); Eosinophils # (auto) 0.1 10 ^3/uL (0-0.8); Eosinophils % (auto) 1.2 % (0.0-7.0); Hematocrit 29.6 % (41.0-53.0); Hemoglobin 9.7 g/dL (13.5-17.5); Lymphocytes # (auto) 1.1 10 ^3/uL (0.4-5.4); Lymphocytes % (auto) 18.7 % (10.0-50.0); Mean Corpuscular Hemoglobin 30.5 pg (28.0-32.0); Mean Corpuscular Hgb Conc. 32.9 g/dL (32.0-36.0); Mean Corpuscular Volume 92.7 fL (80.0-100.0); Monocytes # (auto) 0.6 10 ^3/uL (0-1.3); Neutrophils # (auto) 4.1 10 ^3/uL (1.6-8.6); Neutrophils % (auto) 68.8 % (37.0-80.0); Platelet Count (auto) 345 10^3/uL (140-450); Red Blood Cells 3.19 10^6/uL (4.5-5.90); Red Cell Distribution Width 14.1 % (11.8-14.3); White Blood Cell 5.9 10^3/uL (4.4-10.8)
[2020-02-19 09:59] LABS: Potassium 4.6 mmol/L (3.5-5.1)
== END | disposition home or self-care (01) ==
LOC: CHF HDHVI 08:28
PROVIDERS: ATTEND Internal Medicine Cardiovascular Disease
DX: I11.0 Hypertensive heart disease with heart failure (principal); I50.42 Chronic combined systolic (congestive) and diastolic (congestive) heart failure; I25.10 Atherosclerotic heart disease of native coronary artery without angina pectoris; I42.8 Other cardiomyopathies; I73.9 Peripheral vascular disease, unspecified; J43.2 Centrilobular emphysema; R94.4 Abnormal results of kidney function studies; D64.9 Anemia, unspecified; E87.6 Hypokalemia; E78.5 Hyperlipidemia, unspecified; E03.9 Hypothyroidism, unspecified; J90 Pleural effusion, not elsewhere classified; E11.51 Type 2 diabetes mellitus with diabetic peripheral angiopathy without gangrene; Z79.899 Other long term (current) drug therapy
CPT/HCPCS: 36415; 82565; 84132; 84520; 85025; 93005; 96365; 96366; G0463; J1250

== ENCOUNTER → 2020-02-25 | Outpatient (CLI) | payer MEDICARE ==
[2020-02-25] VITALS (9 sets, daily range): BP systolic 124–143; BP diastolic 49–72
[~2020-02-25] VITALS: Ht 172.7 cm; Wt 69.0 kg
[2020-02-25 09:27] LABS: BUN/Creatinine Ratio 24.8; Potassium 4.4 mmol/L (3.5-5.1)
== END | disposition home or self-care (01) ==
LOC: CHF HDHVI 08:21
PROVIDERS: ATTEND Internal Medicine Cardiovascular Disease
DX: I11.0 Hypertensive heart disease with heart failure (principal); I50.42 Chronic combined systolic (congestive) and diastolic (congestive) heart failure; I25.10 Atherosclerotic heart disease of native coronary artery without angina pectoris; E11.51 Type 2 diabetes mellitus with diabetic peripheral angiopathy without gangrene; J44.9 Chronic obstructive pulmonary disease, unspecified; E83.40 Disorders of magnesium metabolism, unspecified; E03.9 Hypothyroidism, unspecified; E78.5 Hyperlipidemia, unspecified; Z79.899 Other long term (current) drug therapy
CPT/HCPCS: 36415; 80048; 83735; 96365; 96366; G0463; J1250

== ENCOUNTER → 2020-02-26 | Outpatient (CLI) | payer MEDICARE ==
[~2020-02-26] MED LIST changes: -DOBUTamine 1000MCG/ML 250 ML IV ONE; +IOHEXOL 350 MG/ML 100ML IJ ONE
[2020-02-26 16:30] VITALS: BP 142/58
--- NOTE | 2020-02-26 16:30 | NUR ---
PT. TO CLINIC FOR CTA CHEST PER DR. JAMES WHO WILL BE IN CLINIC TO SEE PT. SHORTLY. PT. JUST CAME BACK FROM APPT. AT [facility] WITH HEMATOLOGY APPT. WITH DR. SETH BOATENG MD. PT. IS ANXIOUS BUT UPBEAT ABOUT APPT. WITH [facility] APPT. ORDERS RECEIVED AND CARRIED OUT.
--- NOTE | 2020-02-26 16:35 | NUR ---
IV insertion IV access obtained, via clean sterile technique by inserting 18 gauge catheter at after attempt(s). IV secured properly. No trauma to site. Patient tolerated procedure well.LABS SENT.
--- NOTE | 2020-02-26 17:05 | NUR ---
DR. JAMES AT BEDSIDE FOR EXAM. NEW ORDERS RECEIVED AND CARRIED OUT. PENDING PRODUCTION BROACHING MACHINE OPERATOR ARRIVAL FOR CTA CHEST.
--- NOTE | 2020-02-26 17:25 | NUR ---
PT. TO AND FROM CT. TOLERATED PROCEDURE WELL, WITH NO C/O.. ORDERS FOR BILAT. MALENA HAMILTON RECEIVED AND CARRIED OUT.
--- NOTE | 2020-02-26 17:50 | NUR ---
ROSALINA. UNNA BOOTS APPLIED PER MD ORDER. PT. TOLERATED PROCEDURE WELL. PT. INSTRUCTED TO KEEP UNNA BOOTS IN PLACE UNTIL THIS MONDAY AM WHEN HE RETURNS TO CLINIC FOR IV THERAPY. nOTE: PT. ALSO DISCUSSED WITH DR. JAMES THAT HE HAS 10 DAYS LEFT ON LEVAQUIN 500MG FOR HIS FLARE UP OF DIVERTICULITIS OVER THE HOLIDAY WEEKEND. PT. TO CONTINUE FOR 5 DAYS PER MD ORDER, WITH 5 DAYS ON RESERVE. NEW ORDERS FOR LYRICA RX AND XANAX RX RECEIVED BY DR. JAMES TO PT, WITH MED REC EDUCATED BY THIS RN ON MEDS.
--- NOTE | 2020-02-26 17:55 | NUR ---
IV removal IV DC'd with sterile technique, catheter fully intact. Pressure dressing applied to site. Patient tolerated procedure well. Discharged with aftercare instructions per MD. NOTE:
[2020-02-26 18:05] VITALS: BP 149/59
--- NOTE | 2020-02-26 18:07 | NUR ---
Discharge Instructions See e-MAR for any mediations given with this visit. Patient education given on disease process. Patient verbalized understanding. Previous labs reviewed. Patient discharged in stable condition with after care instructions and follow up appointment. PT. TO INCREASE ELECTROLYTE FLUID INTAKE FOR NEXT 24 HRS. PT. TO RTC ON MONDAY, AND SCHEDULED FOR LOWER EXT ON 03/04 AT 0900.
[2020-02-27 09:31] LABS: Potassium 4.5 mmol/L (3.5-5.1)
[2020-02-27 09:32] LABS: Calcium 8.2 mg/dL (8.5-10.1)
== END | disposition home or self-care (01) ==
LOC: Rad HDHVI 16:31
PROVIDERS: ATTEND Internal Medicine Cardiovascular Disease
DX: J43.2 Centrilobular emphysema (principal); D71 Functional disorders of polymorphonuclear neutrophils; I70.0 Atherosclerosis of aorta; I10 Essential (primary) hypertension; R07.9 Chest pain, unspecified; Z95.4 Presence of other heart-valve replacement
CPT/HCPCS: 36415; 71275; 80048; G0463; Q9967

== ENCOUNTER → 2020-02-28 | Outpatient (CLI) | payer MEDICARE ==
[2020-02-28] VITALS (9 sets, daily range): BP systolic 120–141; BP diastolic 43–61
[~2020-02-28] MED LIST changes: +DOBUTamine 1000MCG/ML 250 ML IV ONE; -IOHEXOL 350 MG/ML 100ML IJ ONE
[2020-02-28 12:46] LABS: Potassium 4.8 mmol/L (3.5-5.1)
== END | disposition home or self-care (01) ==
LOC: CHF HDHVI 08:09
PROVIDERS: ATTEND Internal Medicine Cardiovascular Disease
DX: I11.0 Hypertensive heart disease with heart failure (principal); I50.23 Acute on chronic systolic (congestive) heart failure; I25.10 Atherosclerotic heart disease of native coronary artery without angina pectoris; I73.9 Peripheral vascular disease, unspecified; I42.8 Other cardiomyopathies; J44.9 Chronic obstructive pulmonary disease, unspecified; E78.5 Hyperlipidemia, unspecified; E03.9 Hypothyroidism, unspecified; E11.51 Type 2 diabetes mellitus with diabetic peripheral angiopathy without gangrene; J90 Pleural effusion, not elsewhere classified; Z79.899 Other long term (current) drug therapy
CPT/HCPCS: 36415; 82565; 84132; 84520; 96365; 96366; J1250

== ENCOUNTER → 2020-03-03 | Outpatient (CLI) | payer MEDICARE ==
[2020-03-03] VITALS (10 sets, daily range): BP systolic 122–142; BP diastolic 46–83
[2020-03-03 10:40] LABS: BUN/Creatinine Ratio 21.5; Calcium 8.4 mg/dL (8.5-10.1); Magnesium 3.7 mg/dL (1.6-2.6); Potassium 4.6 mmol/L (3.5-5.1)
== END | disposition home or self-care (01) ==
LOC: CHF HDHVI 08:24
PROVIDERS: ATTEND Internal Medicine Cardiovascular Disease
DX: I11.0 Hypertensive heart disease with heart failure (principal); I50.43 Acute on chronic combined systolic (congestive) and diastolic (congestive) heart failure; I25.10 Atherosclerotic heart disease of native coronary artery without angina pectoris; E78.5 Hyperlipidemia, unspecified; E03.9 Hypothyroidism, unspecified; E11.51 Type 2 diabetes mellitus with diabetic peripheral angiopathy without gangrene; J43.2 Centrilobular emphysema; Z79.899 Other long term (current) drug therapy
CPT/HCPCS: 36415; 80048; 83735; 83880; 96365; 96366; G0463; J1250

== ENCOUNTER → 2020-03-10 | Outpatient (CLI) | payer MEDICARE ==
[2020-03-10] VITALS (9 sets, daily range): BP systolic 117–186; BP diastolic 57–82
--- NOTE | 2020-03-10 08:00 | NUR ---
PATIENT INTO CLINIC FOR SCHEDULED TREATMENT, AAOx4, AMBULATORY, BREATHING EVEN AND UNLABORED. PATIENT STATES THAT DR JAMES STOPPED HIS PROCARDIA ON MONDAY AND WAS GOING TO CONTROL HIS BP WITH ENTRESTO. PATIENT IS CURRENTLY ON ENTRESTO 24/26MG BID, AND THAT HE TOOK A PROCARDIA AFTER HE GOT HERE AND SAW HIS BP WAS HIGH. PATIENT STATES THAT HIS BP HAS BEEN SLOWLY INCREASING STARTING ON MONDAY.
--- NOTE | 2020-03-10 08:54 | NUR ---
IV insertion IV access obtained, via clean sterile technique by inserting 22 gauge catheter at LAC after 1 attempt(s). IV secured properly. No trauma to site. Patient tolerated procedure well. BLOOD DRAWN DURING IV START.
--- NOTE | 2020-03-10 09:45 | NUR ---
PATIENT GIVEN ANOTHER 24/26MG DOSE OF ENTRESTO PER MD.
--- NOTE | 2020-03-10 10:45 | NUR ---
PATIENT BP DECREASING, PT DENIES ANY SYMPTOMS, WILL CONTINUE TO MONITOR.
--- NOTE | 2020-03-10 12:00 | NUR ---
PATIENT HOME DOSE OF ENTRESTO CHANGED FROM 24/26MG BID TO 49/51MG BID. PATIENT GIVEN SAMPLES OF MEDICATION AND INSTRUCTIONS ON CHANGE MADE BY MD, PATIENT VERBALIZED UNDERSTANDING AND STATED HE WOULD CALL ON MONDAY AND REPORT HIS DAILY BP LOG.
--- NOTE | 2020-03-10 12:14 | NUR ---
IV removal IV DC'd with sterile technique, catheter fully intact. Pressure dressing applied to site. Patient tolerated procedure well.
[2020-03-10 12:24] LABS: Potassium 4.6 mmol/L (3.5-5.1)
--- NOTE | 2020-03-10 12:30 | NUR ---
Discharge Instructions See e-MAR for any mediations given with this visit. Patient education given on disease process. Patient verbalized understanding. Previous labs reviewed. Patient discharged in stable condition with after care instructions and follow up appointment. NOTE DOBUTAMINE [id number] ADMIN BY JEYSON COLEY. ENTRESTO SAMPLES X3 49/51MG GIVEN TO PATIENT BY JEYSON COLEY.
== END | disposition home or self-care (01) ==
LOC: CHF HDHVI 08:17
PROVIDERS: ATTEND Internal Medicine Cardiovascular Disease
DX: I11.0 Hypertensive heart disease with heart failure (principal); I50.33 Acute on chronic diastolic (congestive) heart failure; R53.83 Other fatigue; I25.10 Atherosclerotic heart disease of native coronary artery without angina pectoris; I42.8 Other cardiomyopathies; I73.9 Peripheral vascular disease, unspecified; J43.2 Centrilobular emphysema; E78.5 Hyperlipidemia, unspecified; E03.9 Hypothyroidism, unspecified; J90 Pleural effusion, not elsewhere classified; Z79.899 Other long term (current) drug therapy
CPT/HCPCS: 36415; 82565; 83880; 84132; 84520; 96365; 96366; G0463; J1250

== ENCOUNTER → 2020-03-23 | Outpatient (CLI) | payer MEDICARE ==
[~2020-03-23] MED LIST changes: -DOBUTamine 1000MCG/ML 250 ML IV ONE
[2020-03-23 14:20] VITALS: BP 143/57
--- NOTE | 2020-03-23 14:20 | NUR ---
CLINIC PT ARRIVED TO THE [facility] CLINIC FOR WEEKLY SCHEDULED B/P EVAL AND TX. A/OX4, AMBULATORY, BREATHING IS EVEN AND UNLABORED. LABS DONE AT [facility] ON 03/20/20 REVIEWED AND DOCUMENTED IN CHART. PT HAS A 4 LB WT DECREASE SINCE LAST VISIT ON 03/10/20. B/P IS STABLE AT THIS TIME.
[2020-03-23 15:04] VITALS: BP 128/59
--- NOTE | 2020-03-23 15:04 | NUR ---
Discharge Instructions See e-MAR for any mediations given with this visit. Patient education given on disease process. Patient verbalized understanding. Previous labs reviewed. Patient discharged in stable condition with after care instructions and follow up appointment IN 1 WEEK.
== END | disposition home or self-care (01) ==
LOC: CHF HDHVI 14:27
PROVIDERS: ATTEND Internal Medicine Cardiovascular Disease
DX: I10 Essential (primary) hypertension (principal); R53.83 Other fatigue; R60.9 Edema, unspecified
CPT/HCPCS: G0463

== ENCOUNTER → 2020-04-22 | Outpatient (CLI) | payer MEDICARE ==
[2020-04-22 12:05] LABS: BUN/Creatinine Ratio 31.9; Calcium 8.5 mg/dL (8.5-10.1); Potassium 4.7 mmol/L (3.5-5.1)
== END | disposition home or self-care (01) ==
LOC: LAB 10:09
PROVIDERS: ATTEND Internal Medicine Cardiovascular Disease
DX: I11.0 Hypertensive heart disease with heart failure (principal); I50.23 Acute on chronic systolic (congestive) heart failure
CPT/HCPCS: 36415; 80048; 83880

== ENCOUNTER → 2020-07-02 | Outpatient (CLI) | payer MEDICARE ==
[2020-07-02 11:39] LABS: Basophils # (auto) 0.1 10 ^3/uL (0-0.2); Eosinophils # (auto) 0.3 10 ^3/uL (0-0.8); Eosinophils % (auto) 4.5 % (0.0-7.0); Hematocrit 31.5 % (41.0-53.0); Hemoglobin 10.7 g/dL (13.5-17.5); Lymphocytes # (auto) 1.6 10 ^3/uL (0.4-5.4); Lymphocytes % (auto) 21.7 % (10.0-50.0); Mean Corpuscular Hemoglobin 31.1 pg (28.0-32.0); Mean Corpuscular Volume 91.4 fL (80.0-100.0); Monocytes # (auto) 0.7 10 ^3/uL (0-1.3); Monocytes % (auto) 9.3 % (0.0-12.0); Neutrophils # (auto) 4.8 10 ^3/uL (1.6-8.6); Neutrophils % (auto) 63.5 % (37.0-80.0); Platelet Count (auto) 360 10^3/uL (140-450); Red Blood Cells 3.45 10^6/uL (4.5-5.90); Red Cell Distribution Width 14.6 % (11.8-14.3); White Blood Cell 7.5 10^3/uL (4.4-10.8)
[2020-07-02 12:00] LABS: Calcium 8.1 mg/dL (8.5-10.1); Potassium 4.5 mmol/L (3.5-5.1)
[2020-07-02 12:06] LABS: Albumin 2.1 g/dL (3.4-5.0); BUN/Creatinine Ratio 21.3; Bilirubin, Total 0.2 mg/dL (0.2-1.0); Magnesium 3.3 mg/dL (1.6-2.6); Total Protein 6.1 g/dL (6.4-8.2)
== END | disposition home or self-care (01) ==
LOC: LAB 10:17
PROVIDERS: ATTEND Internal Medicine Cardiovascular Disease
DX: I11.0 Hypertensive heart disease with heart failure (principal); I50.23 Acute on chronic systolic (congestive) heart failure; D64.9 Anemia, unspecified; E55.9 Vitamin D deficiency, unspecified
CPT/HCPCS: 36415; 80053; 82306; 83735; 83880; 85025

== ENCOUNTER → 2020-07-08 | Outpatient (CLI) | payer MEDICARE ==
[~2020-07-08] VITALS: Ht 30.5 cm; Wt 74.6 kg
[~2020-07-08] MED LIST changes: +ALBUMIN 25% 100 ML IV ONE; +CYANOCOBALAMIN (B-12) 1000 MCG/1 ML VIAL IM ONE; +CYANOCOBALAMIN (B-12) 1000 MCG/1 ML VIAL ONE; +SODIUM CHLORIDE 0.9% 250 ML IV ONE; +TESTOSTERONE CYPIONATE 200 MG/ML 1ML VIAL IM ONE
[2020-07-08 12:55] VITALS: BP 133/58
[2020-07-08 14:20] VITALS: BP 161/71
== END | disposition home or self-care (01) ==
LOC: CHF HDHVI 11:48
PROVIDERS: ATTEND Internal Medicine Cardiovascular Disease
DX: E29.1 Testicular hypofunction (principal); R77.0 Abnormality of albumin; R94.4 Abnormal results of kidney function studies; R53.83 Other fatigue; I11.0 Hypertensive heart disease with heart failure; I50.22 Chronic systolic (congestive) heart failure
CPT/HCPCS: 36415; 82565; 84520; 96365; 96366; 96372; G0463; J1071; J3420; J7050; P9047; 96361

== ENCOUNTER → 2020-07-15 | Outpatient (CLI) | payer MEDICARE ==
[~2020-07-15] VITALS: Ht 30.5 cm; Wt 0.5 kg
[~2020-07-15] MED LIST changes: +ALBUMIN 25% 50 ML IV ONE; -CYANOCOBALAMIN (B-12) 1000 MCG/1 ML VIAL IM ONE; -CYANOCOBALAMIN (B-12) 1000 MCG/1 ML VIAL ONE; -TESTOSTERONE CYPIONATE 200 MG/ML 1ML VIAL IM ONE
[2020-07-15 12:00] VITALS: BP 183/77
[2020-07-15 13:20] LABS: Basophils # (auto) 0.1 10 ^3/uL (0-0.2); Basophils % (auto) 1.2 % (0.0-2.0); Eosinophils # (auto) 0.2 10 ^3/uL (0-0.8); Eosinophils % (auto) 2.4 % (0.0-7.0); Hematocrit 32.7 % (41.0-53.0); Hemoglobin 11.4 g/dL (13.5-17.5); Lymphocytes # (auto) 1.6 10 ^3/uL (0.4-5.4); Lymphocytes % (auto) 17.2 % (10.0-50.0); Mean Corpuscular Hemoglobin 31.9 pg (28.0-32.0); Mean Corpuscular Hgb Conc. 34.7 g/dL (32.0-36.0); Mean Corpuscular Volume 91.7 fL (80.0-100.0); Monocytes # (auto) 0.6 10 ^3/uL (0-1.3); Neutrophils # (auto) 6.9 10 ^3/uL (1.6-8.6); Neutrophils % (auto) 73.2 % (37.0-80.0); Platelet Count (auto) 396 10^3/uL (140-450); Red Blood Cells 3.56 10^6/uL (4.5-5.90); Red Cell Distribution Width 14.8 % (11.8-14.3); White Blood Cell 9.4 10^3/uL (4.4-10.8)
[2020-07-15 13:34] LABS: Albumin 2.3 g/dL (3.4-5.0); Calcium 8.3 mg/dL (8.5-10.1); Potassium 4.4 mmol/L (3.5-5.1)
[2020-07-15 13:38] LABS: BUN/Creatinine Ratio 21.1; Bilirubin, Total 0.2 mg/dL (0.2-1.0); Total Protein 6.4 g/dL (6.4-8.2)
[2020-07-15 15:32] VITALS: BP 182/80
== END | disposition home or self-care (01) ==
LOC: CHF HDHVI 12:03
PROVIDERS: ATTEND Internal Medicine Cardiovascular Disease
DX: E86.0 Dehydration (principal); R77.0 Abnormality of albumin; R94.4 Abnormal results of kidney function studies; D64.9 Anemia, unspecified; I11.0 Hypertensive heart disease with heart failure; I50.23 Acute on chronic systolic (congestive) heart failure; R53.83 Other fatigue
CPT/HCPCS: 36415; 80053; 83735; 83880; 85025; 96361; 96365; G0463; J7050; P9047

== ENCOUNTER → 2020-07-22 | Outpatient (CLI) | payer MEDICARE ==
[~2020-07-22] VITALS: Ht 30.5 cm; Wt 75.4 kg
[~2020-07-22] MED LIST changes: -ALBUMIN 25% 100 ML IV ONE; -ALBUMIN 25% 50 ML IV ONE; +ALBUMIN 5% 250 ML IV ONE
[2020-07-22 12:02] LABS: Basophils # (auto) 0.1 10 ^3/uL (0-0.2); Basophils % (auto) 0.8 % (0.0-2.0); Eosinophils # (auto) 0.3 10 ^3/uL (0-0.8); Eosinophils % (auto) 3.2 % (0.0-7.0); Hematocrit 32.8 % (41.0-53.0); Hemoglobin 11.3 g/dL (13.5-17.5); Lymphocytes # (auto) 1.6 10 ^3/uL (0.4-5.4); Lymphocytes % (auto) 18.5 % (10.0-50.0); Mean Corpuscular Hemoglobin 31.4 pg (28.0-32.0); Mean Corpuscular Hgb Conc. 34.3 g/dL (32.0-36.0); Mean Corpuscular Volume 91.8 fL (80.0-100.0); Monocytes # (auto) 0.9 10 ^3/uL (0-1.3); Monocytes % (auto) 9.9 % (0.0-12.0); Neutrophils # (auto) 5.8 10 ^3/uL (1.6-8.6); Neutrophils % (auto) 67.6 % (37.0-80.0); Platelet Count (auto) 375 10^3/uL (140-450); Red Blood Cells 3.58 10^6/uL (4.5-5.90); Red Cell Distribution Width 14.5 % (11.8-14.3); White Blood Cell 8.6 10^3/uL (4.4-10.8)
[2020-07-22 12:24] LABS: Potassium 4.4 mmol/L (3.5-5.1)
[2020-07-22 12:28] VITALS: BP 179/77
[2020-07-22 12:33] LABS: Albumin 2.3 g/dL (3.4-5.0); BUN/Creatinine Ratio 18.9; Bilirubin, Total 0.2 mg/dL (0.2-1.0); Calcium 8.3 mg/dL (8.5-10.1); Magnesium 3.4 mg/dL (1.6-2.6); Total Protein 6.5 g/dL (6.4-8.2)
== END | disposition home or self-care (01) ==
LOC: CHF HDHVI 09:13
PROVIDERS: ATTEND Internal Medicine Cardiovascular Disease
DX: I11.0 Hypertensive heart disease with heart failure (principal); I50.23 Acute on chronic systolic (congestive) heart failure; D64.9 Anemia, unspecified; R53.83 Other fatigue; I48.91 Unspecified atrial fibrillation
CPT/HCPCS: 36415; 80053; 83735; 83880; 85025; 96361; 96365; G0463; J7050; P9045

== ENCOUNTER → 2020-07-30 | Outpatient (CLI) | payer MEDICARE ==
[~2020-07-30] MED LIST changes: -ALBUMIN 5% 250 ML IV ONE; -SODIUM CHLORIDE 0.9% 250 ML IV ONE
[2020-07-30 12:09] LABS: Albumin 2.2 g/dL (3.4-5.0); BUN/Creatinine Ratio 15.1; Bilirubin, Total 0.2 mg/dL (0.2-1.0); Calcium 7.9 mg/dL (8.5-10.1); Total Protein 6.1 g/dL (6.4-8.2)
== END | disposition home or self-care (01) ==
LOC: CHF HDHVI 09:18
PROVIDERS: ATTEND Internal Medicine Cardiovascular Disease
DX: I50.23 Acute on chronic systolic (congestive) heart failure (principal); E83.40 Disorders of magnesium metabolism, unspecified
CPT/HCPCS: 36415; 80053; 83880

== ENCOUNTER → 2020-09-08 | Outpatient (CLI) | payer MEDICARE ==
[~2020-09-08] MED LIST changes: +METOPROLOL SUCCINATE XL 50 MG TAB PO ONE
[2020-09-08 11:30] VITALS: BP 186/91
[2020-09-08 12:34] VITALS: BP 194/95
[2020-09-08 15:47] LABS: Basophils # (auto) 0.1 10 ^3/uL (0-0.2); Basophils % (auto) 1.3 % (0.0-2.0); Eosinophils # (auto) 0.2 10 ^3/uL (0-0.8); Eosinophils % (auto) 2.7 % (0.0-7.0); Hematocrit 33.9 % (41.0-53.0); Hemoglobin 11.5 g/dL (13.5-17.5); Lymphocytes # (auto) 1.6 10 ^3/uL (0.4-5.4); Lymphocytes % (auto) 18.1 % (10.0-50.0); Mean Corpuscular Hemoglobin 30.7 pg (28.0-32.0); Mean Corpuscular Volume 90.3 fL (80.0-100.0); Monocytes # (auto) 0.7 10 ^3/uL (0-1.3); Monocytes % (auto) 7.8 % (0.0-12.0); Neutrophils # (auto) 6.1 10 ^3/uL (1.6-8.6); Neutrophils % (auto) 70.1 % (37.0-80.0); Nucleated Red Blood Cells % 0.1 %; Platelet Count (auto) 425 10^3/uL (140-450); Red Blood Cells 3.75 10^6/uL (4.5-5.90); Red Cell Distribution Width 14.8 % (11.8-14.3); White Blood Cell 8.7 10^3/uL (4.4-10.8)
[2020-09-08 16:00] LABS: Albumin 2.1 g/dL (3.4-5.0); BUN/Creatinine Ratio 25.2; Magnesium 3.3 mg/dL (1.6-2.6); Potassium 4.4 mmol/L (3.5-5.1)
[2020-09-08 16:02] LABS: Bilirubin, Total 0.2 mg/dL (0.2-1.0); Total Protein 6.2 g/dL (6.4-8.2)
== END | disposition home or self-care (01) ==
LOC: CHF HDHVI 11:37
PROVIDERS: ATTEND Internal Medicine Cardiovascular Disease
DX: I50.23 Acute on chronic systolic (congestive) heart failure (principal)
CPT/HCPCS: 36415; 80053; 83735; 83880; 85025; G0463

== ENCOUNTER → 2020-10-26 | Outpatient (CLI) | payer MEDICARE ==
[~2020-10-26] MED LIST changes: +METO2.5T PO; -METO2.5T11 PO; -METOPROLOL SUCCINATE XL 50 MG TAB PO ONE
== END | disposition home or self-care (01) ==
LOC: Rad HDHVI 13:03
PROVIDERS: ATTEND Internal Medicine Cardiovascular Disease
DX: I11.0 Hypertensive heart disease with heart failure (principal); I50.43 Acute on chronic combined systolic (congestive) and diastolic (congestive) heart failure
CPT/HCPCS: 93306

== ENCOUNTER → 2020-10-28 | Outpatient (CLI) | payer MEDICARE | END | disposition home or self-care (01) | LOC: Rad HDHVI 09:58 | PROVIDERS: ATTEND Internal Medicine Cardiovascular Disease | DX: R06.02 Shortness of breath (principal); Z95.0 Presence of cardiac pacemaker; Z95.4 Presence of other heart-valve replacement | CPT/HCPCS: 71046 ==

== ENCOUNTER → 2020-11-09 | Outpatient (CLI) | payer MEDICARE ==
[~2020-11-09] VITALS: Ht 175.3 cm; Wt 75.7 kg
[~2020-11-09] MED LIST changes: +ADENOSINE 64 MG in GIVE UN-DILUTED 0 ML IV ONE; +ADENOSINE 90 MG/30 ML INJ IV ONE
== END | disposition home or self-care (01) ==
LOC: Rad HDHVI 08:00
PROVIDERS: ATTEND Internal Medicine Cardiovascular Disease
DX: I11.0 Hypertensive heart disease with heart failure (principal); I50.43 Acute on chronic combined systolic (congestive) and diastolic (congestive) heart failure; I25.10 Atherosclerotic heart disease of native coronary artery without angina pectoris; I49.5 Sick sinus syndrome; E11.9 Type 2 diabetes mellitus without complications; E78.5 Hyperlipidemia, unspecified; J44.9 Chronic obstructive pulmonary disease, unspecified; R06.02 Shortness of breath
CPT/HCPCS: 78452; 93005; 96374; 96375; A9500; J0153

== ENCOUNTER → 2021-01-01 | Outpatient (CLI) | payer MEDICARE ==
[~2021-01-01] MED LIST changes: -ADENOSINE 64 MG in GIVE UN-DILUTED 0 ML IV ONE; -ADENOSINE 90 MG/30 ML INJ IV ONE
[2021-01-01 12:01] LABS: Basophils # (auto) 0.1 10 ^3/uL (0-0.2); Basophils % (auto) 1.1 % (0.0-2.0); Eosinophils # (auto) 0.2 10 ^3/uL (0-0.8); Eosinophils % (auto) 2.1 % (0.0-7.0); Hematocrit 33.8 % (41.0-53.0); Hemoglobin 11.2 g/dL (13.5-17.5); Lymphocytes # (auto) 1.1 10 ^3/uL (0.4-5.4); Lymphocytes % (auto) 12.1 % (10.0-50.0); Mean Corpuscular Hemoglobin 30.3 pg (28.0-32.0); Mean Corpuscular Hgb Conc. 33.2 g/dL (32.0-36.0); Mean Corpuscular Volume 91.2 fL (80.0-100.0); Monocytes % (auto) 10.3 % (0.0-12.0); Neutrophils # (auto) 6.9 10 ^3/uL (1.6-8.6); Neutrophils % (auto) 74.4 % (37.0-80.0); Nucleated Red Blood Cells % 0.1 %; Red Blood Cells 3.71 10^6/uL (4.5-5.90); Red Cell Distribution Width 15.4 % (11.8-14.3); White Blood Cell 9.2 10^3/uL (4.4-10.8)
[2021-01-01 12:21] LABS: Calcium 8.3 mg/dL (8.5-10.1); Potassium 4.5 mmol/L (3.5-5.1)
[2021-01-01 12:23] LABS: BUN/Creatinine Ratio 18.4
== END | disposition home or self-care (01) ==
LOC: LAB 10:28
PROVIDERS: ATTEND Internal Medicine Cardiovascular Disease
DX: D64.9 Anemia, unspecified (principal); I10 Essential (primary) hypertension
CPT/HCPCS: 36415; 80048; 85025

== ENCOUNTER → 2021-01-19 | Outpatient (CLI) | payer MEDICARE ==
[~2021-01-19] MED LIST changes: +CYANOCOBALAMIN (B-12) 1000 MCG/1 ML VIAL IM ONE; +CYANOCOBALAMIN (B-12) 1000 MCG/1 ML VIAL ONE
[2021-01-19 10:50] VITALS: BP 123/51
[2021-01-19 11:27] VITALS: BP 129/53
[2021-01-19 15:33] LABS: Basophils # (auto) 0.1 10 ^3/uL (0-0.2); Basophils % (auto) 0.8 % (0.0-2.0); Eosinophils # (auto) 0.2 10 ^3/uL (0-0.8); Hematocrit 25.1 % (41.0-53.0); Hemoglobin 8.9 g/dL (13.5-17.5); Lymphocytes # (auto) 0.8 10 ^3/uL (0.4-5.4); Lymphocytes % (auto) 8.1 % (10.0-50.0); Mean Corpuscular Hemoglobin 31.6 pg (28.0-32.0); Mean Corpuscular Hgb Conc. 35.5 g/dL (32.0-36.0); Mean Corpuscular Volume 89.1 fL (80.0-100.0); Monocytes % (auto) 9.5 % (0.0-12.0); Neutrophils # (auto) 7.9 10 ^3/uL (1.6-8.6); Neutrophils % (auto) 79.6 % (37.0-80.0); Red Blood Cells 2.82 10^6/uL (4.5-5.90); Red Cell Distribution Width 14.8 % (11.8-14.3)
[2021-01-19 15:34] LABS: Urine Blood TRACE /uL (Negative); Urine Specific Gravity 1.007 (1.001-1.035)
[2021-01-19 15:43] LABS: Calcium 7.9 mg/dL (8.5-10.1); Magnesium 3.7 mg/dL (1.6-2.6); Potassium 4.2 mmol/L (3.5-5.1)
[2021-01-19 15:46] LABS: BUN/Creatinine Ratio 22.4; Bilirubin, Total 0.2 mg/dL (0.2-1.0); Total Protein 5.6 g/dL (6.4-8.2)
== END | disposition home or self-care (01) ==
LOC: CHF HDHVI 10:52
PROVIDERS: ATTEND Internal Medicine Cardiovascular Disease
DX: I11.0 Hypertensive heart disease with heart failure (principal); I50.43 Acute on chronic combined systolic (congestive) and diastolic (congestive) heart failure; R53.83 Other fatigue; R42 Dizziness and giddiness; H53.8 Other visual disturbances; R60.9 Edema, unspecified; I25.10 Atherosclerotic heart disease of native coronary artery without angina pectoris; J44.9 Chronic obstructive pulmonary disease, unspecified; E11.9 Type 2 diabetes mellitus without complications; E78.5 Hyperlipidemia, unspecified
CPT/HCPCS: 36415; 70450; 80053; 81003; 83735; 83880; 85025; 96372; G0463; J3420

== ENCOUNTER → 2021-01-20 | Outpatient (CLI) | payer MEDICARE ==
[~2021-01-20] MED LIST changes: -CYANOCOBALAMIN (B-12) 1000 MCG/1 ML VIAL IM ONE; -CYANOCOBALAMIN (B-12) 1000 MCG/1 ML VIAL ONE; +SODIUM CHL 3% 500 ML IV ONE; +SODIUM CHL 3% 500 ML ONE
[2021-01-20 13:06] VITALS: BP 143/59
[2021-01-20 13:56] LABS: Eosinophils % (auto) 1.8 % (0.0-7.0)
[2021-01-20 14:04] LABS: Basophils # (auto) 0.5 10 ^3/uL (0-0.2); Basophils % (auto) 4.3 % (0.0-2.0); Eosinophils # (auto) 0.2 10 ^3/uL (0-0.8); Hematocrit 16.1 % (41.0-53.0); Lymphocytes # (auto) 1.1 10 ^3/uL (0.4-5.4); Lymphocytes % (auto) 8.5 % (10.0-50.0); Mean Corpuscular Hemoglobin 31.8 pg (28.0-32.0); Mean Corpuscular Hgb Conc. 33.4 g/dL (32.0-36.0); Mean Corpuscular Volume 95.3 fL (80.0-100.0); Monocytes % (auto) 8.4 % (0.0-12.0); Neutrophils # (auto) 9.5 10 ^3/uL (1.6-8.6); Red Blood Cells 1.68 10^6/uL (4.5-5.90); Red Cell Distribution Width 15.1 % (11.8-14.3); White Blood Cell 12.4 10^3/uL (4.4-10.8)
[2021-01-20 14:17] LABS: Hemoglobin 5.4 g/dL (13.5-17.5)
[2021-01-20 15:53] LABS: Basophils # (auto) 0.1 10 ^3/uL (0-0.2); Basophils % (auto) 1.1 % (0.0-2.0); Eosinophils # (auto) 0.2 10 ^3/uL (0-0.8); Eosinophils % (auto) 2.2 % (0.0-7.0); Hemoglobin 9.2 g/dL (13.5-17.5); Mean Corpuscular Hemoglobin 31.7 pg (28.0-32.0); Mean Corpuscular Hgb Conc. 35.3 g/dL (32.0-36.0); Mean Corpuscular Volume 89.7 fL (80.0-100.0); Monocytes % (auto) 9.9 % (0.0-12.0); Neutrophils % (auto) 76.8 % (37.0-80.0); Red Cell Distribution Width 14.3 % (11.8-14.3); White Blood Cell 10.4 10^3/uL (4.4-10.8)
[2021-01-20 16:11] VITALS: BP 156/79
== END | disposition home or self-care (01) ==
LOC: CHF HDHVI 13:09
PROVIDERS: ATTEND Internal Medicine Cardiovascular Disease
DX: E87.1 Hypo-osmolality and hyponatremia (principal); D64.9 Anemia, unspecified; E86.0 Dehydration; N20.0 Calculus of kidney; D17.5 Benign lipomatous neoplasm of intra-abdominal organs; I11.0 Hypertensive heart disease with heart failure; I50.42 Chronic combined systolic (congestive) and diastolic (congestive) heart failure; I25.10 Atherosclerotic heart disease of native coronary artery without angina pectoris; J44.9 Chronic obstructive pulmonary disease, unspecified; E78.5 Hyperlipidemia, unspecified; E11.9 Type 2 diabetes mellitus without complications; Z79.899 Other long term (current) drug therapy
CPT/HCPCS: 36415; 71250; 74176; 82306; 83036; 84295; 84403; 85025; 96365; 96366; G0463

== ENCOUNTER → 2021-01-27 | Outpatient (CLI) | payer MEDICARE ==
[~2021-01-27] MED LIST changes: -SODIUM CHL 3% 500 ML IV ONE; -SODIUM CHL 3% 500 ML ONE; +SODIUM CHLORIDE 0.9% 250 ML IV ONE
[2021-01-27 11:25] VITALS: BP 147/67
[2021-01-27 12:25] LABS: Basophils # (auto) 0.1 10 ^3/uL (0-0.2); Basophils % (auto) 0.8 % (0.0-2.0); Eosinophils # (auto) 0.1 10 ^3/uL (0-0.8); Eosinophils % (auto) 1.3 % (0.0-7.0); Hematocrit 27.7 % (41.0-53.0); Hemoglobin 9.8 g/dL (13.5-17.5); Lymphocytes # (auto) 0.7 10 ^3/uL (0.4-5.4); Mean Corpuscular Hemoglobin 31.6 pg (28.0-32.0); Mean Corpuscular Hgb Conc. 35.4 g/dL (32.0-36.0); Mean Corpuscular Volume 89.1 fL (80.0-100.0); Monocytes # (auto) 0.6 10 ^3/uL (0-1.3); Monocytes % (auto) 6.8 % (0.0-12.0); Neutrophils # (auto) 7.1 10 ^3/uL (1.6-8.6); Neutrophils % (auto) 83.1 % (37.0-80.0); Red Blood Cells 3.11 10^6/uL (4.5-5.90); White Blood Cell 8.6 10^3/uL (4.4-10.8)
[2021-01-27 12:37] LABS: Calcium 9.1 mg/dL (8.5-10.1); Magnesium 2.8 mg/dL (1.6-2.6); Potassium 4.2 mmol/L (3.5-5.1)
[2021-01-27 12:40] LABS: BUN/Creatinine Ratio 21.4
[2021-01-27 14:59] VITALS: BP 164/71
== END | disposition home or self-care (01) ==
LOC: CHF HDHVI 11:19
PROVIDERS: ATTEND Internal Medicine Cardiovascular Disease
DX: E86.0 Dehydration (principal); R53.83 Other fatigue; I11.0 Hypertensive heart disease with heart failure; I50.43 Acute on chronic combined systolic (congestive) and diastolic (congestive) heart failure; J44.9 Chronic obstructive pulmonary disease, unspecified; E11.9 Type 2 diabetes mellitus without complications; I25.10 Atherosclerotic heart disease of native coronary artery without angina pectoris; E78.5 Hyperlipidemia, unspecified; R42 Dizziness and giddiness
CPT/HCPCS: 36415; 80048; 83735; 83880; 85025; 96360; 96361; G0463; J7050

== ENCOUNTER → 2021-07-23 | Outpatient (CLI) | payer MEDICARE ==
[~2021-07-23] MED LIST changes: -SODIUM CHLORIDE 0.9% 250 ML IV ONE
== END | disposition home or self-care (01) ==
LOC: Rad HDHVI 10:46
PROVIDERS: ATTEND Internal Medicine Cardiovascular Disease
DX: R07.89 Other chest pain (principal); E78.5 Hyperlipidemia, unspecified
CPT/HCPCS: 93306

== ENCOUNTER 2021-09-25 12:08 | Emergency (ER) | payer MEDICARE ==
[~2021-09-25] VITALS: Ht 172.7 cm; Wt 68.0 kg
[2021-09-25 13:08] LABS: Basophils # (auto) 0.1 10 ^3/uL (0-0.2); Basophils % (auto) 0.7 % (0.0-2.0); Eosinophils # (auto) 0.1 10 ^3/uL (0-0.8); Eosinophils % (auto) 0.8 % (0.0-7.0); Hematocrit 28.6 % (41.0-53.0); Hemoglobin 9.7 g/dL (13.5-17.5); Lymphocytes # (auto) 0.6 10 ^3/uL (0.4-5.4); Lymphocytes % (auto) 8.5 % (10.0-50.0); Mean Corpuscular Hemoglobin 31.2 pg (28.0-32.0); Mean Corpuscular Volume 91.9 fL (80.0-100.0); Monocytes # (auto) 0.5 10 ^3/uL (0-1.3); Monocytes % (auto) 6.8 % (0.0-12.0); Neutrophils # (auto) 6.3 10 ^3/uL (1.6-8.6); Neutrophils % (auto) 83.2 % (37.0-80.0); Red Blood Cells 3.11 10^6/uL (4.5-5.90); Red Cell Distribution Width 13.3 % (11.8-14.3); White Blood Cell 7.5 10^3/uL (4.4-10.8)
[2021-09-25 13:17] LABS: Albumin 3.2 g/dL (3.4-5.0); Calcium 8.9 mg/dL (8.5-10.1); Potassium 4.1 mmol/L (3.5-5.1)
[2021-09-25 13:19] LABS: BUN/Creatinine Ratio 13.5
[2021-09-25 13:21] LABS: Bilirubin, Total 0.2 mg/dL (0.2-1.0); Total Protein 6.4 g/dL (6.4-8.2)
[2021-09-25 13:59] LABS: Urine Bacteria NONE SEEN /hpf (None Seen); Urine Blood Negative /uL (Negative); Urine Hyaline Cast FEW /lpf (0 - 2); Urine Specific Gravity 1.006 (1.001-1.035); Urine WBC 1 /hpf (0 - 3)
[2021-09-25] MEDS ORDERED: LABETALOL HCL 5 MG/ML 4ML SYRINGE IV ONE (14:15)
[2021-09-25] MEDS ORDERED: SODIUM CHLORIDE 0.9% 1,000 ML IV ONE (15:15)
[2021-09-25] MEDS ORDERED: hydrALAZINE HCL 20 MG/ML VL IV ONE (16:15)
[2021-09-25 17:40] VITALS: BP 155/71
== END 2021-09-25 18:23 | disposition home or self-care (01) ==
LOC: ER 12:08
DX: S20.212A Contusion of left front wall of thorax, initial encounter (principal); R55 Syncope and collapse; D63.8 Anemia in other chronic diseases classified elsewhere; E11.21 Type 2 diabetes mellitus with diabetic nephropathy; E44.1 Mild protein-calorie malnutrition; E78.5 Hyperlipidemia, unspecified; Z95.0 Presence of cardiac pacemaker; Z68.22 Body mass index [BMI] 22.0-22.9, adult; W18.39XA Other fall on same level, initial encounter; Y93.89 Activity, other specified; Y92.89 Other specified places as the place of occurrence of the external cause; Y99.8 Other external cause status
CPT/HCPCS: 36415; 70450; 71101; 80053; 81001; 83735; 84443; 84484; 85025; 85379; 93005; 96361; 96374; 96375; 99285; J0360; J3490; J7030

== ENCOUNTER → 2021-12-06 | Outpatient (CLI) | payer MEDICARE | END | disposition home or self-care (01) | LOC: Rad HDHVI 10:55 | PROVIDERS: ATTEND Internal Medicine | DX: M48.56XA Collapsed vertebra, not elsewhere classified, lumbar region, initial encounter for fracture (principal); M54.50 Low back pain, unspecified | CPT/HCPCS: 72100 ==

== ENCOUNTER → 2021-12-07 | Outpatient (CLI) | payer MEDICARE | END | disposition home or self-care (01) | LOC: Rad HDHVI 11:11 | PROVIDERS: ATTEND Internal Medicine Cardiovascular Disease | DX: M43.8X6 Other specified deforming dorsopathies, lumbar region (principal); M48.56XA Collapsed vertebra, not elsewhere classified, lumbar region, initial encounter for fracture; I70.0 Atherosclerosis of aorta; M54.50 Low back pain, unspecified | CPT/HCPCS: 72131 ==

== ENCOUNTER → 2022-01-03 | Outpatient (CLI) | payer MEDICARE ==
[2022-01-03 15:19] LABS: Basophils # (auto) 0.1 10 ^3/uL (0-0.2); Eosinophils # (auto) 0.1 10 ^3/uL (0-0.8); Monocytes # (auto) 0.7 10 ^3/uL (0-1.3); Red Cell Distribution Width 12.7 % (11.8-14.3)
[2022-01-03 15:20] LABS: BUN/Creatinine Ratio 17.8; Basophils % (auto) 0.9 % (0.0-2.0); Calcium 9.6 mg/dL (8.5-10.1); Eosinophils % (auto) 1.2 % (0.0-7.0); Hematocrit 23.4 % (41.0-53.0); Hemoglobin 7.9 g/dL (13.5-17.5); Lymphocytes % (auto) 9.3 % (10.0-50.0); Mean Corpuscular Hemoglobin 28.8 pg (28.0-32.0); Mean Corpuscular Hgb Conc. 33.7 g/dL (32.0-36.0); Mean Corpuscular Volume 85.5 fL (80.0-100.0); Monocytes % (auto) 6.8 % (0.0-12.0); Neutrophils # (auto) 8.6 10 ^3/uL (1.6-8.6); Neutrophils % (auto) 81.8 % (37.0-80.0); Potassium 3.5 mmol/L (3.5-5.1); Red Blood Cells 2.73 10^6/uL (4.5-5.90); White Blood Cell 10.5 10^3/uL (4.4-10.8)
== END | disposition home or self-care (01) ==
LOC: Rad HDHVI 14:47
PROVIDERS: ATTEND Internal Medicine Cardiovascular Disease
DX: R06.02 Shortness of breath (principal); R05.9 Cough, unspecified
CPT/HCPCS: 36415; 71046; 80048; 83880; 85025

== ENCOUNTER → 2022-01-10 | Outpatient (CLI) | payer MEDICARE | END | disposition home or self-care (01) | LOC: Rad HDHVI 13:11 | PROVIDERS: ATTEND Internal Medicine Cardiovascular Disease | DX: I10 Essential (primary) hypertension (principal); R00.2 Palpitations | CPT/HCPCS: 93306 ==

== ENCOUNTER 2022-01-19 07:18 | Day surgery (SDC) | payer MEDICARE ==
[2022-01-19] VITALS (12 sets, daily range): BP systolic 100–177; BP diastolic 47–77
[2022-01-19] MEDS ORDERED: GABA400C11 PO (16:19)
[2022-01-19] MEDS ORDERED: ATO40T PO (16:19)
[2022-01-19] MEDS ORDERED: CARV25TA PO (16:19)
[2022-01-19] MEDS ORDERED: HYDR-3682 PO (16:19)
[2022-01-19] MEDS ORDERED: RIVA10TA PO (16:19)
[2022-01-19] MEDS ORDERED: HYDR50TA15 PO (16:19)
[2022-01-19] MEDS ORDERED: LEVO125T7 PO (16:19)
[2022-01-19] MEDS ORDERED: TRAZ1TAB12 PO (16:19)
[2022-01-19] MEDS ORDERED: CLON0.2D3 TD (16:19)
[2022-01-19] MEDS ORDERED: MEGE20TA5 PO (16:19)
== END 2022-01-19 16:50 | disposition home or self-care (01) ==
LOC: CATH 07:18
PROVIDERS: ATTEND Internal Medicine Cardiovascular Disease
DX: D64.9 Anemia, unspecified (principal); Z95.5 Presence of coronary angioplasty implant and graft; Z82.49 Family history of ischemic heart disease and other diseases of the circulatory system; Z80.8 Family history of malignant neoplasm of other organs or systems; Z20.822 Contact with and (suspected) exposure to COVID-19
CPT/HCPCS: 36430; 86850; 86900; 86901; 86920; J7030; P9016; U0003

== ENCOUNTER → 2022-01-31 | Outpatient (CLI) | payer MEDICARE ==
[~2022-01-31] MED LIST changes: +ATO40T PO; -ATOR20TA PO; +CARV25TA PO; -CLON0.1T PO; +CLON0.2D3 TD; -CLOP75TA28 PO; -DOXA4TAB2 PO; +GABA400C11 PO; -GABA800T97 PO; +HYDR-3682 PO; +HYDR50TA15 PO; +LEVO125T7 PO; -LEVO88TA4 PO; +MEGE20TA5 PO; -METO2.5T PO; -POTA10TA51 PO; +RIVA10TA PO; -SACU1TAB4 PO; -TORS20TA20 PO; +TRAZ1TAB12 PO
[2022-01-31 14:29] LABS: Basophils # (auto) 0.1 10 ^3/uL (0-0.2); Basophils % (auto) 0.8 % (0.0-2.0); Eosinophils # (auto) 0.1 10 ^3/uL (0-0.8); Eosinophils % (auto) 1.8 % (0.0-7.0); Hematocrit 37.9 % (41.0-53.0); Lymphocytes # (auto) 1.1 10 ^3/uL (0.4-5.4); Lymphocytes % (auto) 14.2 % (10.0-50.0); Mean Corpuscular Hemoglobin 28.9 pg (28.0-32.0); Mean Corpuscular Hgb Conc. 31.7 g/dL (32.0-36.0); Mean Corpuscular Volume 91.1 fL (80.0-100.0); Monocytes # (auto) 0.7 10 ^3/uL (0-1.3); Monocytes % (auto) 9.8 % (0.0-12.0); Neutrophils # (auto) 5.6 10 ^3/uL (1.6-8.6); Neutrophils % (auto) 73.4 % (37.0-80.0); Red Blood Cells 4.16 10^6/uL (4.5-5.90); Red Cell Distribution Width 15.2 % (11.8-14.3); White Blood Cell 7.7 10^3/uL (4.4-10.8)
== END | disposition home or self-care (01) ==
LOC: LAB 12:04
PROVIDERS: ATTEND Internal Medicine Cardiovascular Disease
DX: D64.9 Anemia, unspecified (principal)
CPT/HCPCS: 36415; 85025

== ENCOUNTER 2022-02-14 11:15 | Outpatient (CLI) | payer MEDICARE ==
[2022-02-14 11:20] VITALS: BP 131/77
[2022-02-14] MEDS ORDERED: IOHEXOL 350 MG/ML 100ML IJ ONE (11:30)
== END 2022-02-14 14:40 | disposition home or self-care (01) ==
LOC: Rad HDHVI 11:15
PROVIDERS: ATTEND Internal Medicine Cardiovascular Disease
DX: R79.89 Other specified abnormal findings of blood chemistry (principal); R59.9 Enlarged lymph nodes, unspecified; I50.23 Acute on chronic systolic (congestive) heart failure
CPT/HCPCS: 36415; 82565; 84520; G0463; Q9967

== ENCOUNTER → 2022-02-18 | Outpatient (CLI) | payer MEDICARE | END | disposition home or self-care (01) | LOC: Rad HDHVI 12:51 | PROVIDERS: ATTEND Internal Medicine Cardiovascular Disease | DX: I07.1 Rheumatic tricuspid insufficiency (principal); I10 Essential (primary) hypertension | CPT/HCPCS: 93306 ==

== ENCOUNTER → 2022-02-24 | Outpatient (CLI) | payer MEDICARE ==
[2022-02-24 12:23] LABS: Urine Blood Negative /uL (Negative); Urine Specific Gravity 1.015 (1.001-1.035)
[2022-02-24 12:31] LABS: Basophils # (auto) 0.1 10 ^3/uL (0-0.2); Eosinophils # (auto) 0.2 10 ^3/uL (0-0.8); Eosinophils % (auto) 2.2 % (0.0-7.0); Hematocrit 32.3 % (41.0-53.0); Hemoglobin 10.6 g/dL (13.5-17.5); Lymphocytes # (auto) 1.2 10 ^3/uL (0.4-5.4); Lymphocytes % (auto) 14.6 % (10.0-50.0); Mean Corpuscular Hemoglobin 28.8 pg (28.0-32.0); Mean Corpuscular Hgb Conc. 32.9 g/dL (32.0-36.0); Mean Corpuscular Volume 87.6 fL (80.0-100.0); Monocytes # (auto) 0.9 10 ^3/uL (0-1.3); Monocytes % (auto) 10.1 % (0.0-12.0); Neutrophils # (auto) 6.2 10 ^3/uL (1.6-8.6); Neutrophils % (auto) 72.1 % (37.0-80.0); Nucleated Red Blood Cells % 0.1 %; Red Blood Cells 3.68 10^6/uL (4.5-5.90); Red Cell Distribution Width 15.4 % (11.8-14.3); White Blood Cell 8.5 10^3/uL (4.4-10.8)
[2022-02-24 12:40] LABS: Albumin 3.5 g/dL (3.4-5.0); BUN/Creatinine Ratio 21.4; Calcium 8.5 mg/dL (8.5-10.1); Potassium 3.7 mmol/L (3.5-5.1)
[2022-02-24 12:43] LABS: Bilirubin, Total 0.4 mg/dL (0.2-1.0); Total Protein 6.7 g/dL (6.4-8.2)
[2022-02-24 13:37] LABS: Prostate Specific Antigen 1.05 ng/mL (0.0-4.0)
== END | disposition home or self-care (01) ==
LOC: LAB 08:31
PROVIDERS: ATTEND Internal Medicine Cardiovascular Disease
DX: C61 Malignant neoplasm of prostate (principal); E55.9 Vitamin D deficiency, unspecified; D51.3 Other dietary vitamin B12 deficiency anemia; D64.9 Anemia, unspecified; E11.9 Type 2 diabetes mellitus without complications; I10 Essential (primary) hypertension; R00.2 Palpitations; R53.1 Weakness; R30.0 Dysuria
CPT/HCPCS: 36415; 80053; 80061; 81003; 82306; 82607; 83036; 84153; 84403; 84439; 84443; 85025

== ENCOUNTER → 2022-05-02 | Outpatient (CLI) | payer MEDICARE ==
[2022-05-02 11:58] LABS: Basophils # (auto) 0.1 10 ^3/uL (0-0.2); Basophils % (auto) 1.5 % (0.0-2.0); Eosinophils # (auto) 0.3 10 ^3/uL (0-0.8); Eosinophils % (auto) 3.6 % (0.0-7.0); Hematocrit 29.1 % (41.0-53.0); Hemoglobin 10.1 g/dL (13.5-17.5); Lymphocytes # (auto) 1.1 10 ^3/uL (0.4-5.4); Lymphocytes % (auto) 12.6 % (10.0-50.0); Mean Corpuscular Hemoglobin 31.3 pg (28.0-32.0); Mean Corpuscular Hgb Conc. 34.8 g/dL (32.0-36.0); Mean Corpuscular Volume 89.7 fL (80.0-100.0); Monocytes # (auto) 0.8 10 ^3/uL (0-1.3); Monocytes % (auto) 9.6 % (0.0-12.0); Neutrophils # (auto) 6.3 10 ^3/uL (1.6-8.6); Neutrophils % (auto) 72.7 % (37.0-80.0); Red Blood Cells 3.24 10^6/uL (4.5-5.90); Red Cell Distribution Width 13.7 % (11.8-14.3); White Blood Cell 8.7 10^3/uL (4.4-10.8)
[2022-05-02 12:30] LABS: Bilirubin, Direct 0.1 mg/dL (0-0.2); Bilirubin, Total 0.4 mg/dL (0.2-1.0); Calcium 9.3 mg/dL (8.5-10.1); Total Protein 7.7 g/dL (6.4-8.2)
[2022-05-02 12:50] LABS: Urine Blood Negative /uL (Negative); Urine Specific Gravity 1.008 (1.001-1.035)
[2022-05-02 14:55] LABS: Potassium 2.8 mmol/L (3.5-5.1)
== END | disposition home or self-care (01) ==
LOC: LAB 10:26
PROVIDERS: ATTEND Internal Medicine Cardiovascular Disease
DX: I10 Essential (primary) hypertension (principal); E55.9 Vitamin D deficiency, unspecified
CPT/HCPCS: 36415; 80048; 80061; 80076; 81003; 82306; 83036; 84153; 84443; 85025

== ENCOUNTER → 2022-05-06 | Outpatient (CLI) | payer MEDICARE ==
[2022-05-06 12:28] LABS: Potassium 3.7 mmol/L (3.5-5.1)
== END | disposition home or self-care (01) ==
LOC: LAB 09:21
PROVIDERS: ATTEND Internal Medicine Cardiovascular Disease
DX: R94.4 Abnormal results of kidney function studies (principal)
CPT/HCPCS: 36415; 82565; 84132; 84520

== ENCOUNTER → 2022-05-11 | Outpatient (CLI) | payer MEDICARE | END | disposition home or self-care (01) | LOC: Rad HDHVI 15:29 | PROVIDERS: ATTEND Internal Medicine Cardiovascular Disease | DX: I70.212 Atherosclerosis of native arteries of extremities with intermittent claudication, left leg (principal) | CPT/HCPCS: 93926 ==

== ENCOUNTER → 2022-05-19 | Outpatient (CLI) | payer MEDICARE ==
[~2022-05-19] VITALS: Ht 172.7 cm; Wt 65.8 kg
[~2022-05-19] MED LIST changes: +ADENOSINE 55 MG in GIVE UN-DILUTED 0 ML IV ONE; +ADENOSINE 90 MG/30 ML INJ IV ONE
== END | disposition home or self-care (01) ==
LOC: Rad HDHVI 09:05
PROVIDERS: ATTEND Internal Medicine Cardiovascular Disease
DX: I25.10 Atherosclerotic heart disease of native coronary artery without angina pectoris (principal); R07.89 Other chest pain; E78.5 Hyperlipidemia, unspecified; R06.02 Shortness of breath; I11.0 Hypertensive heart disease with heart failure; I50.43 Acute on chronic combined systolic (congestive) and diastolic (congestive) heart failure; J44.9 Chronic obstructive pulmonary disease, unspecified; Z82.49 Family history of ischemic heart disease and other diseases of the circulatory system; Z79.899 Other long term (current) drug therapy; Z95.0 Presence of cardiac pacemaker
CPT/HCPCS: 78452; 93005; 96374; 96375; A9500; J0153

== ENCOUNTER → 2022-07-26 | Outpatient (CLI) | payer MEDICARE ==
[~2022-07-26] MED LIST changes: -ADENOSINE 55 MG in GIVE UN-DILUTED 0 ML IV ONE; -ADENOSINE 90 MG/30 ML INJ IV ONE
[2022-07-26 17:47] LABS: BUN/Creatinine Ratio 27.9; Calcium 8.8 mg/dL (8.5-10.1)
[2022-07-26 18:03] LABS: Potassium 2.4 mmol/L (3.5-5.1)
== END | disposition home or self-care (01) ==
LOC: LAB 12:53
PROVIDERS: ATTEND Internal Medicine Cardiovascular Disease
DX: I10 Essential (primary) hypertension (principal)
CPT/HCPCS: 36415; 80048

== ENCOUNTER → 2022-08-03 | Outpatient (CLI) | payer MEDICARE ==
[2022-08-03 16:55] LABS: Calcium 8.3 mg/dL (8.5-10.1); Potassium 3.4 mmol/L (3.5-5.1)
[2022-08-03 16:58] LABS: BUN/Creatinine Ratio 32.9
== END | disposition home or self-care (01) ==
LOC: Rad HDHVI 14:18
PROVIDERS: ATTEND Internal Medicine Cardiovascular Disease
DX: E87.6 Hypokalemia (principal); J44.9 Chronic obstructive pulmonary disease, unspecified; R05.9 Cough, unspecified
CPT/HCPCS: 36415; 71046; 80048

== ENCOUNTER → 2022-09-13 | Outpatient (CLI) | payer MEDICARE | END | disposition home or self-care (01) | LOC: Rad HDHVI 14:50 | PROVIDERS: ATTEND Internal Medicine Cardiovascular Disease | DX: I70.201 Unspecified atherosclerosis of native arteries of extremities, right leg (principal) | CPT/HCPCS: 93926 ==

== ENCOUNTER → 2022-10-24 | Outpatient (CLI) | payer MEDICARE ==
[~2022-10-24] MED LIST changes: +FERR18TA PO; +HYDR100T22 PO; +HYDR25TA4 PO
[2022-10-24 13:20] VITALS: BP 139/64
[2022-10-24 13:46] VITALS: BP 161/67
== END | disposition home or self-care (01) ==
LOC: Rad HDHVI 13:02
PROVIDERS: ATTEND Internal Medicine Cardiovascular Disease
DX: Z01.818 Encounter for other preprocedural examination (principal); R94.31 Abnormal electrocardiogram [ECG] [EKG]; I73.9 Peripheral vascular disease, unspecified; Z95.0 Presence of cardiac pacemaker
CPT/HCPCS: 71046; 93005; G0463

== ENCOUNTER 2022-10-27 08:55 | Day surgery (SDC) | payer MEDICARE ==
[2022-10-24 15:19] LABS: Basophils # (auto) 0.1 10 ^3/uL (0-0.2); Basophils % (auto) 1.2 % (0.0-2.0); Eosinophils # (auto) 0.5 10 ^3/uL (0-0.8); Hematocrit 29.2 % (41.0-53.0); Hemoglobin 10.1 g/dL (13.5-17.5); Lymphocytes % (auto) 13.8 % (10.0-50.0); Mean Corpuscular Hemoglobin 31.7 pg (28.0-32.0); Mean Corpuscular Hgb Conc. 34.4 g/dL (32.0-36.0); Mean Corpuscular Volume 92.2 fL (80.0-100.0); Monocytes # (auto) 0.8 10 ^3/uL (0-1.3); Monocytes % (auto) 11.2 % (0.0-12.0); Neutrophils # (auto) 4.8 10 ^3/uL (1.6-8.6); Neutrophils % (auto) 66.8 % (37.0-80.0); Red Blood Cells 3.17 10^6/uL (4.5-5.90); Red Cell Distribution Width 13.5 % (11.8-14.3); White Blood Cell 7.2 10^3/uL (4.4-10.8)
[2022-10-24 15:43] LABS: INR 1.09 (0.9-1.15); Partial Thromboplastin Time 34.2 sec (24.6-33.4)
[2022-10-24 15:49] LABS: Calcium 8.3 mg/dL (8.5-10.1); Potassium 3.8 mmol/L (3.5-5.1)
[~2022-10-27] VITALS: Ht 177.8 cm; Wt 68.9 kg
[~2022-10-27 08:55] MED LIST changes: -HYDR50TA15 PO
[2022-10-27] MEDS ORDERED: SODIUM CHL 0.9% 50 ML ONE (13:50)
[2022-10-27] MEDS ORDERED: fentaNYL CITRATE 100 MCG/2 ML VL ONE (13:50)
[2022-10-27] MEDS ORDERED: MIDAZOLAM HCL 2MG/2ML 2ml VIAL (1mg/ml) ONE (13:50)
[2022-10-27] MEDS ORDERED: ANGIOMAX 250 MG VIAL IV ONE (13:50)
[2022-10-27] MEDS ORDERED: LIDOCAINE 2%HCL (LOCAL ANESTH.) INJ 20ML MDV ONE (13:50)
[2022-10-27] MEDS ORDERED: IODIXANOL 320MG/ML 100ML BTL IV ONE (13:51)
[2022-10-27] MEDS ORDERED: CLOPIDOGREL 300 MG TAB ONE (14:41)
== END 2022-10-27 17:05 | disposition home or self-care (01) ==
LOC: CATH 08:55
PROVIDERS: ATTEND Internal Medicine Cardiovascular Disease
DX: I70.213 Atherosclerosis of native arteries of extremities with intermittent claudication, bilateral legs (principal); I25.10 Atherosclerotic heart disease of native coronary artery without angina pectoris; Z95.2 Presence of prosthetic heart valve; N40.0 Benign prostatic hyperplasia without lower urinary tract symptoms; E78.5 Hyperlipidemia, unspecified; I11.9 Hypertensive heart disease without heart failure
CPT/HCPCS: 36415; 75716; 80048; 85025; 85610; 85730; C1725; C1769; C1887; C1894; C9764; J0583; J1644; J2250; J3010; Q9967; 99152; 99153

== ENCOUNTER 2022-12-23 20:47 | Inpatient (IN) | payer MEDICARE ==
[~2022-12-23] VITALS: Ht 177.8 cm; Wt 79.2 kg
[~2022-12-23 20:47] MED LIST changes: +GABA-1251 PO; -GABA400C11 PO; +MEGE20TA3 PO; -MEGE20TA5 PO
[2022-12-23 21:25] LABS: Basophils # (auto) 0 10 ^3/uL (0-0.2); Basophils % (auto) 0.2 % (0.0-2.0); Eosinophils # (auto) 0 10 ^3/uL (0-0.8); Hemoglobin 8.1 g/dL (13.5-17.5)
[2022-12-23 21:29] LABS: Hematocrit 23.1 % (41.0-53.0); Lymphocytes # (auto) 0.4 10 ^3/uL (0.4-5.4); Mean Corpuscular Hemoglobin 30.8 pg (28.0-32.0); Mean Corpuscular Volume 87.9 fL (80.0-100.0); Monocytes # (auto) 1.8 10 ^3/uL (0-1.3); Monocytes % (auto) 9.2 % (0.0-12.0); Neutrophils # (auto) 17.5 10 ^3/uL (1.6-8.6); Neutrophils % (auto) 88.6 % (37.0-80.0); Red Blood Cells 2.63 10^6/uL (4.5-5.90); Red Cell Distribution Width 13.3 % (11.8-14.3); White Blood Cell 19.8 10^3/uL (4.4-10.8)
[2022-12-23 21:39] LABS: Albumin 3.4 g/dL (3.4-5.0); Calcium 8.7 mg/dL (8.5-10.1)
[2022-12-23 21:42] LABS: BUN/Creatinine Ratio 22.5 (10.0-20.0); INR 1.11 (0.9-1.15); Partial Thromboplastin Time 39.6 SEC (24.5-34.5)
[2022-12-23 21:46] LABS: Bilirubin, Total 0.6 mg/dL (0.2-1.0); Total Protein 6.8 g/dL (6.4-8.2)
[2022-12-23 21:59] LABS: Potassium 2.4 mmol/L (3.5-5.1)
[2022-12-23] MEDS ORDERED: PIPERACILLIN-TAZOB 3.375GM 100 ML IV ONE (23:30)
[2022-12-23] MEDS ORDERED: VANCOMYCIN 1GM/250ML 250 ML IV ONE (23:30)
[2022-12-23] MEDS ORDERED: PANTOPRAZOLE 80 MG in SODIUM CHL 0.9% 100 ML IV ONE (23:30)
[2022-12-23] MEDS ORDERED: SODIUM CHL 3% 500 ML IV ONE (23:30)
[2022-12-24 00:22] LABS: Magnesium 2.3 mg/dL (1.6-2.6)
[2022-12-24 00:28] LABS: Blood Alcohol < 3.0 mg/dL (<10)
[2022-12-24] MEDS ORDERED: PANTOPRAZOLE 40 MG/10 ML VIAL INJ IV ONE (00:47)
[2022-12-24] MEDS: POTASSIUM CHL 20MEQ/100ML 100 ML IV SCH ×2 (00:53→02:39)
[2022-12-24] MEDS ORDERED: VANCOMYCIN 1GM/250ML 0 ML IV ONE (05:01)
[2022-12-24] MEDS ORDERED: VANCOMYCIN 1GM/250ML 250 ML IV ONE (05:45)
[2022-12-24] MEDS ORDERED: VANCOMYCIN PER PHARMACY 0 MG IV SCH (05:45)
[2022-12-24] MEDS ORDERED: ACETAMINOPHEN 325 MG TAB PO PRN (05:45)
[2022-12-24] MEDS ORDERED: DOCUSATE SOD 100 MG CAP PO PRN (05:45)
[2022-12-24] MEDS ORDERED: SODIUM CHLORIDE 0.9% 1,000 ML IV SCH (05:45)
[2022-12-24] MEDS ORDERED: MORPHINE SULFATE INJ 2 MG/ml SYRG IV PRN (06:45)
[2022-12-24] MEDS ORDERED: NITROGLYCERIN 0.4 MG SL TAB SL PRN (06:45)
[2022-12-24 06:52] LABS: Basophils # (auto) 0.1 10 ^3/uL (0-0.2); Eosinophils # (auto) 0 10 ^3/uL (0-0.8); Hemoglobin 7.4 g/dL (13.5-17.5)
[2022-12-24 06:54] LABS: Basophils % (auto) 0.4 % (0.0-2.0); Eosinophils % (auto) 0.1 % (0.0-7.0); Hematocrit 20.9 % (41.0-53.0); Lymphocytes # (auto) 0.5 10 ^3/uL (0.4-5.4); Lymphocytes % (auto) 2.8 % (10.0-50.0); Mean Corpuscular Hemoglobin 31.1 pg (28.0-32.0); Mean Corpuscular Hgb Conc. 35.5 g/dL (32.0-36.0); Mean Corpuscular Volume 87.5 fL (80.0-100.0); Monocytes # (auto) 1.1 10 ^3/uL (0-1.3); Monocytes % (auto) 6.5 % (0.0-12.0); Neutrophils # (auto) 15.7 10 ^3/uL (1.6-8.6); Neutrophils % (auto) 90.2 % (37.0-80.0); Red Blood Cells 2.38 10^6/uL (4.5-5.90); Red Cell Distribution Width 13.5 % (11.8-14.3); White Blood Cell 17.4 10^3/uL (4.4-10.8)
[2022-12-24 07:19] LABS: Albumin 2.8 g/dL (3.4-5.0); BUN/Creatinine Ratio 22.2 (10.0-20.0); Bilirubin, Total 0.5 mg/dL (0.2-1.0); Calcium 8.1 mg/dL (8.5-10.1); Total Protein 6.1 g/dL (6.4-8.2)
[2022-12-24 07:40] LABS: Potassium 2.4 mmol/L (3.5-5.1)
[2022-12-24] MEDS ORDERED: POTASSIUM CHL 20 Meq TABLET PO ONE (08:00)
[2022-12-24] MEDS: cefTRIAXone 1GM/50ML D5W 50 ML IV SCH (08:12)
[2022-12-24 09:17] LABS: Urine Amorphous Crystal FEW /hpf (None Seen); Urine Bacteria NONE SEEN /hpf (None Seen); Urine Blood Negative /uL (Negative); Urine Specific Gravity 1.009 (1.001-1.035); Urine WBC <1 /hpf (0 - 3)
[2022-12-24] MEDS: LEVOTHYROXINE SODIUM 50 MCG TAB PO SCH (09:28)
[2022-12-24] MEDS: FAMOTIDINE (10MG/ML) 2ML VL IV SCH ×2 (10:58→22:10)
[2022-12-24] MEDS: ASPirin 81 mg TAB PO SCH (10:58)
[2022-12-24 11:54] LABS: Albumin 2.8 g/dL (3.4-5.0); Calcium 8.1 mg/dL (8.5-10.1)
[2022-12-24 11:57] LABS: BUN/Creatinine Ratio 21.6 (10.0-20.0); Bilirubin, Total 0.4 mg/dL (0.2-1.0); Total Protein 6.1 g/dL (6.4-8.2)
[2022-12-24 12:05] LABS: Potassium 2.6 mmol/L (3.5-5.1)
[2022-12-24 16:21] LABS: BUN/Creatinine Ratio 23.7 (10.0-20.0); Calcium 8.4 mg/dL (8.5-10.1)
[2022-12-24] MEDS: D5W/SOD CHL 0.9%/KCL 40MEQ 1,000 ML IV SCH (20:02)
[2022-12-24] MEDS: MORPHINE SULFATE INJ 2 MG/ml SYRG IV PRN (20:16)
[2022-12-24 21:56] VITALS: BP 136/51
[2022-12-24] MEDS: ATORVASTATIN 20 MG TAB PO SCH (22:11)
[2022-12-24 23:24] VITALS: BP 136/51
[2022-12-25] MEDS: MORPHINE SULFATE INJ 2 MG/ml SYRG IV PRN (00:38)
[2022-12-25 05:00] VITALS: BP 135/52
[2022-12-25 06:10] LABS: Basophils # (auto) 0.1 10 ^3/uL (0-0.2); Basophils % (auto) 0.6 % (0.0-2.0); Eosinophils # (auto) 0.1 10 ^3/uL (0-0.8); Eosinophils % (auto) 0.5 % (0.0-7.0); Hematocrit 24.8 % (41.0-53.0); Hemoglobin 8.5 g/dL (13.5-17.5); Lymphocytes # (auto) 0.4 10 ^3/uL (0.4-5.4); Lymphocytes % (auto) 2.2 % (10.0-50.0); Mean Corpuscular Hemoglobin 30.6 pg (28.0-32.0); Mean Corpuscular Hgb Conc. 34.4 g/dL (32.0-36.0); Mean Corpuscular Volume 88.7 fL (80.0-100.0); Monocytes # (auto) 1.2 10 ^3/uL (0-1.3); Monocytes % (auto) 6.3 % (0.0-12.0); Neutrophils # (auto) 16.9 10 ^3/uL (1.6-8.6); Neutrophils % (auto) 90.4 % (37.0-80.0); Red Cell Distribution Width 13.8 % (11.8-14.3); White Blood Cell 18.7 10^3/uL (4.4-10.8)
[2022-12-25] MEDS: LEVOTHYROXINE SODIUM 50 MCG TAB PO SCH (06:21)
[2022-12-25] MEDS: cefTRIAXone 1GM/50ML D5W 50 ML IV SCH (06:27)
[2022-12-25 06:34] LABS: Potassium 3.4 mmol/L (3.5-5.1)
[2022-12-25 06:42] LABS: Albumin 3.1 g/dL (3.4-5.0); BUN/Creatinine Ratio 23.7 (10.0-20.0); Calcium 8.2 mg/dL (8.5-10.1)
[2022-12-25 06:44] LABS: Bilirubin, Total 0.3 mg/dL (0.2-1.0); Total Protein 6.1 g/dL (6.4-8.2)
[2022-12-25 09:00] VITALS: BP 133/53
[2022-12-25] MEDS: ASPirin 81 mg TAB PO SCH (09:25)
[2022-12-25] MEDS: FAMOTIDINE (10MG/ML) 2ML VL IV SCH ×2 (09:25→22:24)
[2022-12-25 13:00] VITALS: BP 131/47
[2022-12-25] MEDS ORDERED: VANCOMYCIN 750mg/250ml 250 ML IV ONE (14:00)
[2022-12-25] MEDS: HYDROcodone-ACET 5/325MG TAB PO PRN ×2 (16:25→22:28)
[2022-12-25 17:00] VITALS: BP 161/51
[2022-12-25] MEDS: D5W/SOD CHL 0.9%/KCL 40MEQ 1,000 ML IV SCH (18:15)
[2022-12-25] MEDS: IPRATROPIUM BROM 0.5 MG/2.5ML INH SOL NEB SCH ×2 (18:26→22:33)
[2022-12-25] MEDS: ALBUTEROL SULF 2.5 MG/0.5ML(0.5%) NEB SOLN NEB SCH ×2 (18:26→22:33)
[2022-12-25 19:01] VITALS: BP 161/51
[2022-12-25 22:00] VITALS: BP 124/53
[2022-12-25] MEDS: ATORVASTATIN 20 MG TAB PO SCH (22:23)
[2022-12-25] MEDS: DexAMETHasone SOD PHOS 4 MG/1ML SDV INJ IV SCH (22:24)
[2022-12-26 05:00] VITALS: BP 119/62
[2022-12-26 05:54] LABS: BUN/Creatinine Ratio 22.7 (10.0-20.0); Potassium 4.1 mmol/L (3.5-5.1)
[2022-12-26] MEDS: IPRATROPIUM BROM 0.5 MG/2.5ML INH SOL NEB SCH ×4 (06:01→23:18)
[2022-12-26] MEDS: ALBUTEROL SULF 2.5 MG/0.5ML(0.5%) NEB SOLN NEB SCH ×4 (06:01→23:18)
[2022-12-26] MEDS: cefTRIAXone 1GM/50ML D5W 50 ML IV SCH (06:17)
[2022-12-26] MEDS: DexAMETHasone SOD PHOS 4 MG/1ML SDV INJ IV SCH ×3 (06:18→21:37)
[2022-12-26] MEDS: LEVOTHYROXINE SODIUM 50 MCG TAB PO SCH (06:18)
[2022-12-26 09:00] VITALS: BP 147/58
[2022-12-26] MEDS: ASPirin 81 mg TAB PO SCH (09:30)
[2022-12-26] MEDS: HYDROcodone-ACET 5/325MG TAB PO PRN (09:31)
[2022-12-26] MEDS: FAMOTIDINE (10MG/ML) 2ML VL IV SCH ×2 (09:31→21:36)
[2022-12-26] MEDS ORDERED: VANCOMYCIN 1GM/250ML 250 ML IV ONE (09:45)
[2022-12-26 13:00] VITALS: BP 141/61
[2022-12-26] MEDS: D5W/SOD CHL 0.9%/KCL 40MEQ 1,000 ML IV SCH (15:31)
[2022-12-26 17:00] VITALS: BP 139/60
[2022-12-26] MEDS: ATORVASTATIN 20 MG TAB PO SCH (21:37)
[2022-12-26 22:00] VITALS: BP 155/67
[2022-12-27 01:00] VITALS: BP 110/55
[2022-12-27 05:00] VITALS: BP 150/77
[2022-12-27] MEDS: DexAMETHasone SOD PHOS 4 MG/1ML SDV INJ IV SCH ×2 (06:01→13:45)
[2022-12-27] MEDS: LEVOTHYROXINE SODIUM 50 MCG TAB PO SCH (06:01)
[2022-12-27] MEDS: cefTRIAXone 1GM/50ML D5W 50 ML IV SCH (06:01)
[2022-12-27 06:13] LABS: BUN/Creatinine Ratio 22.5 (10.0-20.0); Calcium 8.5 mg/dL (8.5-10.1); Potassium 4.4 mmol/L (3.5-5.1)
[2022-12-27] MEDS: ALBUTEROL SULF 2.5 MG/0.5ML(0.5%) NEB SOLN NEB SCH ×3 (06:45→18:17)
[2022-12-27] MEDS: IPRATROPIUM BROM 0.5 MG/2.5ML INH SOL NEB SCH ×3 (06:45→18:17)
[2022-12-27] MEDS: D5W/SOD CHL 0.9%/KCL 40MEQ 1,000 ML IV SCH (07:30)
[2022-12-27 09:00] VITALS: BP 151/70
[2022-12-27] MEDS: ASPirin 81 mg TAB PO SCH (09:18)
[2022-12-27] MEDS: FAMOTIDINE (10MG/ML) 2ML VL IV SCH (09:18)
[2022-12-27] MEDS: hydrOXYzine 25 MG TAB or CAP PO SCH ×2 (09:29→21:27)
[2022-12-27] MEDS ORDERED: EPOETIN ALFA-EPBX 10,000 UNIT/1ML VIAL SC ONE (14:00)
[2022-12-27 14:44] LABS: Eosinophils # (auto) 0 10 ^3/uL (0-0.8); Hemoglobin 8.7 g/dL (13.5-17.5)
[2022-12-27 14:46] LABS: Basophils # (auto) 0 10 ^3/uL (0-0.2); Basophils % (auto) 0.1 % (0.0-2.0); Hematocrit 26.1 % (41.0-53.0); Lymphocytes # (auto) 0.6 10 ^3/uL (0.4-5.4); Lymphocytes % (auto) 1.9 % (10.0-50.0); Mean Corpuscular Hemoglobin 30.1 pg (28.0-32.0); Mean Corpuscular Hgb Conc. 33.4 g/dL (32.0-36.0); Mean Corpuscular Volume 90.3 fL (80.0-100.0); Monocytes # (auto) 1.2 10 ^3/uL (0-1.3); Monocytes % (auto) 3.8 % (0.0-12.0); Neutrophils # (auto) 29.8 10 ^3/uL (1.6-8.6); Neutrophils % (auto) 94.2 % (37.0-80.0); Nucleated Red Blood Cells % 0.1 %; Red Blood Cells 2.89 10^6/uL (4.5-5.90); Red Cell Distribution Width 13.8 % (11.8-14.3)
[2022-12-27 14:57] LABS: White Blood Cell 31.7 10^3/uL (4.4-10.8)
[2022-12-27 16:27] VITALS: BP 162/81
[2022-12-27] MEDS ORDERED: traZODone HCL 50 MG TAB PO PRN (16:45)
[2022-12-27] MEDS ORDERED: VANCOMYCIN 500 MG in D5W 5% 100 ML IV SCH (21:00)
[2022-12-27] MEDS: ATORVASTATIN 20 MG TAB PO SCH (21:27)
[2022-12-27 22:00] VITALS: BP 133/74
[2022-12-28] VITALS (12 sets, daily range): BP systolic 130–150; BP diastolic 65–84
[2022-12-28] MEDS: ALBUTEROL SULF 2.5 MG/0.5ML(0.5%) NEB SOLN NEB SCH ×3 (00:22→18:20)
[2022-12-28] MEDS: IPRATROPIUM BROM 0.5 MG/2.5ML INH SOL NEB SCH ×3 (00:22→18:20)
[2022-12-28] MEDS: LEVOTHYROXINE SODIUM 50 MCG TAB PO SCH (06:09)
[2022-12-28] MEDS: cefTRIAXone 1GM/50ML D5W 50 ML IV SCH (06:13)
[2022-12-28 06:14] LABS: Hemoglobin 7.8 g/dL (13.5-17.5); Mean Corpuscular Volume 89.6 fL (80.0-100.0)
[2022-12-28 06:17] LABS: Hematocrit 22.9 % (41.0-53.0); Mean Corpuscular Hemoglobin 30.5 pg (28.0-32.0); Red Blood Cells 2.55 10^6/uL (4.5-5.90); Red Cell Distribution Width 13.8 % (11.8-14.3); White Blood Cell 16.1 10^3/uL (4.4-10.8)
[2022-12-28 06:39] LABS: BUN/Creatinine Ratio 24.4 (10.0-20.0); Calcium 8.8 mg/dL (8.5-10.1); Potassium 4.6 mmol/L (3.5-5.1)
[2022-12-28 07:24] LABS: Basophils % (manual) 0 (0.0-2.0); Blast Cells 0; Eosinophils % (manual) 0 (0-7); Promyelocytes % 0; Reactive Lymphocytes 0
[2022-12-28 08:15] LABS: Band Neutrophils % (manual) 4; Lymphocytes % (manual) 3 (10.0-50.0); Metamyelocytes % 6; Monocytes % (manual) 5 (0-12); Myelocytes % 3
[2022-12-28] MEDS: hydrOXYzine 25 MG TAB or CAP PO SCH ×2 (09:43→21:09)
[2022-12-28] MEDS: ASPirin 81 mg TAB PO SCH (09:43)
[2022-12-28] MEDS ORDERED: FUROSEMIDE 40 MG/4 ML VIAL IV ONE (11:00)
[2022-12-28] MEDS: SODIUM FERR GLUC 62.5MG/5ML 125 MG in SODIUM CHL 0.9% 100 ML IV SCH (13:10)
[2022-12-28] MEDS: VANCOMYCIN 500 MG in D5W 5% 100 ML IV SCH (14:19)
[2022-12-28] MEDS: ONDANSETRON HCL 4 MG/2 ML VIAL IV PRN ×2 (19:30→20:54)
[2022-12-28] MEDS: ATORVASTATIN 20 MG TAB PO SCH (21:05)
[2022-12-29] VITALS (13 sets, daily range): BP systolic 126–165; BP diastolic 61–96
[2022-12-29] MEDS: LEVOTHYROXINE SODIUM 50 MCG TAB PO SCH (06:07)
[2022-12-29] MEDS: cefTRIAXone 1GM/50ML D5W 50 ML IV SCH (06:08)
[2022-12-29] MEDS: ASPirin 81 mg TAB PO SCH (10:21)
[2022-12-29] MEDS: hydrOXYzine 25 MG TAB or CAP PO SCH ×2 (10:21→21:42)
[2022-12-29] MEDS ORDERED: MIDAZOLAM HCL 2MG/2ML 2ml VIAL (1mg/ml) IV ONE (11:45)
[2022-12-29] MEDS: SODIUM FERR GLUC 62.5MG/5ML 125 MG in SODIUM CHL 0.9% 100 ML IV SCH (12:00)
[2022-12-29] MEDS: VANCOMYCIN 500 MG in D5W 5% 100 ML IV SCH (14:00)
[2022-12-29] MEDS ORDERED: fentaNYL CITRATE 100 MCG/2 ML VL ONE (14:19)
[2022-12-29] MEDS ORDERED: SODIUM CHL 0.9% 0 ML ONE (14:20)
[2022-12-29] MEDS ORDERED: ANGIOMAX 250 MG VIAL IV ONE (14:20)
[2022-12-29] MEDS ORDERED: LIDOCAINE 2%HCL (LOCAL ANESTH.) INJ 20ML MDV ONE (14:21)
[2022-12-29] MEDS ORDERED: IODIXANOL 320MG/ML 100ML BTL IV ONE (14:21)
[2022-12-29] MEDS ORDERED: IOHEXOL 350 MG/ML 100ML IJ ONE (14:32)
[2022-12-29 18:03] LABS: Hematocrit 31.7 % (41.0-53.0); Hemoglobin 10.4 g/dL (13.5-17.5); Mean Corpuscular Hemoglobin 28.5 pg (28.0-32.0); Mean Corpuscular Hgb Conc. 32.9 g/dL (32.0-36.0); Mean Corpuscular Volume 86.8 fL (80.0-100.0); Red Blood Cells 3.65 10^6/uL (4.5-5.90); White Blood Cell 13.1 10^3/uL (4.4-10.8)
[2022-12-29 18:17] LABS: Basophils % (manual) 0 (0.0-2.0); Blast Cells 0; Eosinophils % (manual) 0 (0-7); INR 1.18 (0.9-1.15); Myelocytes % 0; Promyelocytes % 0
[2022-12-29 18:27] LABS: BUN/Creatinine Ratio 23.5 (10.0-20.0); Calcium 8.6 mg/dL (8.5-10.1); Potassium 3.8 mmol/L (3.5-5.1)
[2022-12-29 18:42] LABS: Band Neutrophils % (manual) 3; Lymphocytes % (manual) 3 (10.0-50.0); Metamyelocytes % 1; Monocytes % (manual) 8 (0-12); Reactive Lymphocytes 1
[2022-12-29] MEDS: ATORVASTATIN 20 MG TAB PO SCH (21:42)
[2022-12-30] MEDS: IPRATROPIUM BROM 0.5 MG/2.5ML INH SOL NEB PRN ×2 (01:24→06:44)
[2022-12-30] MEDS: ALBUTEROL SULF 2.5 MG/0.5ML(0.5%) NEB SOLN NEB PRN ×2 (01:24→06:44)
[2022-12-30 05:00] VITALS: BP 164/92
[2022-12-30] MEDS: LEVOTHYROXINE SODIUM 50 MCG TAB PO SCH (06:22)
[2022-12-30] MEDS: cefTRIAXone 1GM/50ML D5W 50 ML IV SCH (06:22)
[2022-12-30 08:58] VITALS: BP 158/89
[2022-12-30] MEDS: hydrOXYzine 25 MG TAB or CAP PO SCH (09:05)
[2022-12-30] MEDS: ASPirin 81 mg TAB PO SCH (09:05)
[2022-12-30] MEDS: SODIUM FERR GLUC 62.5MG/5ML 125 MG in SODIUM CHL 0.9% 100 ML IV SCH (12:00)
[2022-12-30 12:56] VITALS: BP 155/78
[2022-12-30] MEDS: VANCOMYCIN 500 MG in D5W 5% 100 ML IV SCH (14:37)
[2022-12-30 17:00] VITALS: BP 138/97
== END 2022-12-30 18:00 | disposition home or self-care (01) | DRG 682 ==
LOC: EDBD 20:47 → ER 20:47 → TELE 12-24 06:46 → TELE-CENTR 12-24 20:32
PROVIDERS: ADMIT Internal Medicine Cardiovascular Disease; ATTEND Internal Medicine Cardiovascular Disease
PROC: 30233N1 Transfusion of Nonautologous Red Blood Cells into Peripheral Vein, Percutaneous Approach (ICD-10-PCS; principal; 2022-12-28)
PROC: 4A023N7 Measurement of Cardiac Sampling and Pressure, Left Heart, Percutaneous Approach (ICD-10-PCS; 2022-12-29)
PROC: B2111ZZ Fluoroscopy of Multiple Coronary Arteries using Low Osmolar Contrast (ICD-10-PCS; 2022-12-29)
PROC: B2151ZZ Fluoroscopy of Left Heart using Low Osmolar Contrast (ICD-10-PCS; 2022-12-29)
PROC: B41F1ZZ Fluoroscopy of Right Lower Extremity Arteries using Low Osmolar Contrast (ICD-10-PCS; 2022-12-29)
PROC: B24BZZ4 Ultrasonography of Heart with Aorta, Transesophageal (ICD-10-PCS; 2022-12-29)
DX: N17.9 Acute kidney failure, unspecified (principal); J69.0 Pneumonitis due to inhalation of food and vomit; E87.1 Hypo-osmolality and hyponatremia; I13.0 Hypertensive heart and chronic kidney disease with heart failure and stage 1 through stage 4 chronic kidney disease, or unspecified chronic kidney disease; R07.9 Chest pain, unspecified; E87.6 Hypokalemia; Z20.822 Contact with and (suspected) exposure to COVID-19; D63.8 Anemia in other chronic diseases classified elsewhere; E87.8 Other disorders of electrolyte and fluid balance, not elsewhere classified; D72.829 Elevated white blood cell count, unspecified; R79.89 Other specified abnormal findings of blood chemistry; N18.32 Chronic kidney disease, stage 3b; E78.00 Pure hypercholesterolemia, unspecified; D17.9 Benign lipomatous neoplasm, unspecified; I49.5 Sick sinus syndrome; I73.9 Peripheral vascular disease, unspecified; Z95.0 Presence of cardiac pacemaker; Z95.2 Presence of prosthetic heart valve; Z82.49 Family history of ischemic heart disease and other diseases of the circulatory system; Z80.9 Family history of malignant neoplasm, unspecified
CPT/HCPCS: 36415; 71045; 75736; 80048; 80053; 80202; 80320; 81001; 83605; 83735; 83880; 83930; 83935; 84300; 84484; 85007; 85025; 85027; 85045; 85610; 85730; 86850; 86900; 86901; 86920; 87040; 87081; 87426; 87804; 93005; 93306; 93312; 93458; 94640; 96365; 96367; 99152; 99291; C9113; G0378; J0696; J1100; J2250; J2405; J2543; J3480; J3490; J7060; Q9967

== ENCOUNTER → 2023-01-04 | Outpatient (CLI) | payer MEDICARE ==
[~2023-01-04] MED LIST changes: -CLON0.2D3 TD; -MEGE20TA3 PO
[2023-01-04 11:35] VITALS: BP 127/61; PULSE 70; RESP 18; O2SAT 96
[2023-01-04 12:32] VITALS: BP 136/70; PULSE 72; RESP 18; O2SAT 96
== END | disposition home or self-care (01) ==
LOC: Rad HDHVI 11:21
PROVIDERS: ATTEND Internal Medicine Cardiovascular Disease
DX: L02.412 Cutaneous abscess of left axilla (principal); R60.9 Edema, unspecified
CPT/HCPCS: 93925; G0463

== ENCOUNTER → 2023-01-30 | Outpatient (CLI) | payer MEDICARE ==
[~2023-01-30] MED LIST changes: +BACITRACIN TOP OINT 1 UD PKG TOP ONE; +SODIUM FERR GLUC 62.5MG/5ML 125 MG in SODIUM CHL 0.9% 100 ML IV ONE; +SODIUM FERRIC GLUC CPLEX 62.5MG/5ML VIAL IV ONE
[2023-01-30 09:57] VITALS: BP 117/46; PULSE 66; RESP 18; O2SAT 97
[2023-01-30 12:37] VITALS: BP 157/68; PULSE 70; RESP 18; O2SAT 97
== END | disposition home or self-care (01) ==
LOC: CHF HDHVI 09:47
PROVIDERS: ATTEND Internal Medicine Cardiovascular Disease
DX: D50.9 Iron deficiency anemia, unspecified (principal); I13.0 Hypertensive heart and chronic kidney disease with heart failure and stage 1 through stage 4 chronic kidney disease, or unspecified chronic kidney disease; N18.32 Chronic kidney disease, stage 3b; I50.9 Heart failure, unspecified; I73.9 Peripheral vascular disease, unspecified; E78.00 Pure hypercholesterolemia, unspecified; Z95.0 Presence of cardiac pacemaker
CPT/HCPCS: 96365; G0463; J2916

== ENCOUNTER → 2023-03-27 | Outpatient (CLI) | payer MEDICARE ==
[~2023-03-27] MED LIST changes: -BACITRACIN TOP OINT 1 UD PKG TOP ONE; +HYDR-4924 PO; +HYDR25TA87 PO; +POTA10TA51 PO; -SODIUM FERR GLUC 62.5MG/5ML 125 MG in SODIUM CHL 0.9% 100 ML IV ONE; -SODIUM FERRIC GLUC CPLEX 62.5MG/5ML VIAL IV ONE; +TORS20TA20 PO; +VERI5TAB PO
[2023-03-27 14:10] VITALS: BP 153/67; PULSE 81; RESP 16; O2SAT 97
[2023-03-27 14:30] VITALS: BP 136/60; PULSE 70; RESP 16; O2SAT 98
== END | disposition home or self-care (01) ==
LOC: CHF HDHVI 14:08
PROVIDERS: ATTEND Internal Medicine Cardiovascular Disease
DX: Z01.818 Encounter for other preprocedural examination (principal); R94.31 Abnormal electrocardiogram [ECG] [EKG]; I49.1 Atrial premature depolarization; I49.3 Ventricular premature depolarization; I10 Essential (primary) hypertension; I73.9 Peripheral vascular disease, unspecified
CPT/HCPCS: 93005; G0463

== ENCOUNTER 2023-03-30 09:50 | Day surgery (SDC) | payer MEDICARE ==
[2023-03-27 15:26] LABS: Hematocrit 32.7 % (41.0-53.0); Hemoglobin 11.3 g/dL (13.5-17.5); Mean Corpuscular Hemoglobin 30.7 pg (28.0-32.0); Mean Corpuscular Hgb Conc. 34.5 g/dL (32.0-36.0); Red Blood Cells 3.67 10^6/uL (4.5-5.90); Red Cell Distribution Width 14.7 % (11.8-14.3); White Blood Cell 5.1 10^3/uL (4.4-10.8)
[2023-03-27 15:27] LABS: Basophils % (manual) 0 (0.0-2.0); Blast Cells 0; Metamyelocytes % 0; Myelocytes % 0; Promyelocytes % 0; Reactive Lymphocytes 0
[2023-03-27 15:41] LABS: INR 1.13 (0.9-1.15); Partial Thromboplastin Time 33.3 SEC (24.5-34.5); Prothrombin Time 11.8 sec (9.3-11.8)
[2023-03-27 15:53] LABS: Chloride 103 mmol/L (98-107); Potassium 3.4 mmol/L (3.5-5.1); Sodium 135 mmol/L (136-145)
[2023-03-27 15:54] LABS: Anion Gap 5 (5-15); Calcium 9.6 mg/dL (8.7-10.4); Carbon Dioxide 27 mmol/L (20-30)
[2023-03-27 15:59] LABS: Blood Urea Nitrogen 36 mg/dL (9-23); Glucose 100 mg/dL (74-106)
[2023-03-27 16:29] LABS: Band Neutrophils % (manual) 1; Eosinophils % (manual) 2 (0-7); Lymphocytes % (manual) 33 (10.0-50.0); Monocytes % (manual) 14 (0-12); Platelet Estimate Adequate
[2023-03-27 16:30] LABS: Anisocytosis Slight
[~2023-03-30] VITALS: Ht 175.3 cm; Wt 66.7 kg
[~2023-03-30 09:50] MED LIST changes: -CARV25TA PO; -FERR18TA PO; -HYDR-3682 PO; -HYDR100T22 PO; -HYDR25TA4 PO
[2023-03-30] MEDS ORDERED: LIDOCAINE 2%HCL (LOCAL ANESTH.) INJ 20ML MDV ONE (11:36)
[2023-03-30] MEDS ORDERED: IOHEXOL 350 MG/ML 100ML IJ ONE (11:45)
[2023-03-30] MEDS ORDERED: SODIUM CHL 0.9% 50 ML ONE (12:26)
[2023-03-30] MEDS ORDERED: MIDAZOLAM HCL 2MG/2ML 2ml VIAL (1mg/ml) ONE (12:26)
[2023-03-30] MEDS ORDERED: fentaNYL CITRATE 100 MCG/2 ML VL ONE (12:26)
[2023-03-30] MEDS ORDERED: ANGIOMAX 250 MG VIAL IV ONE (12:26)
[2023-03-30 13:51] VITALS: BP 168/79; PULSE 75; RESP 15; TEMP 97.8; O2SAT 100
[2023-03-30] MEDS ORDERED: CLOPIDOGREL 300 MG TAB ONE (13:51)
[2023-03-30 14:05] VITALS: BP 160/65; PULSE 74; RESP 13; O2SAT 98
[2023-03-30 14:20] VITALS: BP 155/80; PULSE 82; RESP 18; O2SAT 98
[2023-03-30 15:35] VITALS: BP 150/59; PULSE 72; RESP 14; O2SAT 98
[2023-03-30 15:50] VITALS: BP 120/40; PULSE 73; RESP 13; O2SAT 99
[2023-03-30 16:20] VITALS: BP 131/56; PULSE 74; RESP 12; O2SAT 99
== END 2023-03-30 16:27 | disposition home or self-care (01) ==
LOC: CATH 09:50
PROVIDERS: ATTEND Internal Medicine Cardiovascular Disease
DX: I70.211 Atherosclerosis of native arteries of extremities with intermittent claudication, right leg (principal); I25.10 Atherosclerotic heart disease of native coronary artery without angina pectoris; I10 Essential (primary) hypertension; E78.5 Hyperlipidemia, unspecified; Z80.9 Family history of malignant neoplasm, unspecified; Z72.89 Other problems related to lifestyle; Z82.49 Family history of ischemic heart disease and other diseases of the circulatory system; Z79.899 Other long term (current) drug therapy; Z87.891 Personal history of nicotine dependence
CPT/HCPCS: 75716; C1725; C1769; C1887; C1894; C9766; C9774; J0583; J1644; J2250; J3010; J7040; Q9967; 36415; 37227; 37231; 37235; 80048; 85007; 85027; 85610; 85730; 99152

== ENCOUNTER → 2023-06-01 | Outpatient (CLI) | payer MEDICARE | END | disposition home or self-care (01) | LOC: Rad HDHVI 10:13 | PROVIDERS: ATTEND Internal Medicine Cardiovascular Disease | DX: I11.9 Hypertensive heart disease without heart failure (principal); I73.9 Peripheral vascular disease, unspecified | CPT/HCPCS: 93306 ==

== ENCOUNTER → 2023-10-11 | Outpatient (CLI) | payer MEDICARE ==
[~2023-10-11] MED LIST changes: -ATO40T PO; +ATOR-507 PO; +POTA-36 PO; -POTA10TA51 PO
== END | disposition home or self-care (01) ==
LOC: Rad HDHVI 10:57
PROVIDERS: ATTEND Internal Medicine Cardiovascular Disease
DX: M16.0 Bilateral primary osteoarthritis of hip (principal)
CPT/HCPCS: 73521

== ENCOUNTER → 2024-01-29 | Outpatient (CLI) | payer MEDICARE | END | disposition home or self-care (01) | LOC: Rad HDHVI 10:02 | PROVIDERS: ATTEND Internal Medicine Cardiovascular Disease | DX: R07.9 Chest pain, unspecified (principal) | CPT/HCPCS: 93880 ==

== ENCOUNTER → 2024-05-21 | Outpatient (CLI) | payer MEDICARE ==
--- NOTE | 2024-05-23 12:29 | DVHSR ---
APPROVED REPORT EXAM: Two-dimensional and M-mode echocardiogram with Doppler and color Doppler. DIMENSIONS LVDd5.0 (3.8-5.7cm)LA (2D)3.3 (1.9-4.0cm)Aortic Root2.6 (2.0-3.7cm) LVDs3.1 (2.5-4.0cm)LA (MM) (1.9-4.0cm)Aortic Cusp Exc1.7 (1.5-2.0cm) EF (%) 69.2 (55-70%)Rt. Atrium5.1 (1.9-4.0cm)Asc. Aorta cm IVSd1.0 (0.7-1.1cm)RV (D)4.1 (1.8-2.4cm) PWd1.2 (0.7-1.1cm) Mitral Valve MitralMitral Stenosis E wave0.79m/sMV Mean GR.mmHg A wave1.21m/sMV Peak GR.62mmHg E/A ratio0.72D MVAcm2 DECEL [id number] 1/2 Timems Aortic Valve Aortic ValveAortic Stenosis V11.28m/Carine Mean GR.9mmHg V22.21m/Carine Peak GR.20mmHg Pulmonic Valve V20.89m/s Tricuspid Valve TR Velocity2.48m/s [id number] LEFT VENTRICLE The Ejection Fraction is >55%. ATRIA The left atrial size is normal. The right atrium is mildly dilated. MITRAL VALVE The mitral valve is normal in structure and function. Mitral regurgitation is mild. PULMONIC VALVE The pulmonic valve is not well visualized. TRICUSPID VALVE The tricuspid valve is grossly normal. There is mild tricuspid regurgitation. AORTIC VALVE The aortic valve opens well. There are no vegetationspresent on this prosthetic aortic valve. GREAT VESSELS The aortic root is normal size. PERICARDIAL EFFUSION There is no pericardial effusion. Other Information Technically limited study due to body habitus. Conclusion NORMAL FUNCTIONING AV PROSTESIS EF >55% YOVANI MILD TR MILD MR
== END | disposition home or self-care (01) ==
LOC: Rad HDHVI 14:47
PROVIDERS: ATTEND Internal Medicine Cardiovascular Disease
DX: I08.1 Rheumatic disorders of both mitral and tricuspid valves (principal); R07.89 Other chest pain
CPT/HCPCS: 93306

== ENCOUNTER → 2024-05-29 | Outpatient (CLI) | payer MEDICARE ==
[~2024-05-29] MED LIST changes: +ASPI-543 PO; +ATOR20TA PO; +CARV-217 PO; +CLOP75TA28 PO; +DAPA1TAB4 PO; +ESOM40CA39 PO; +GABA800T97 PO; +IODIXANOL 320MG/ML 100ML BTL IV ONE; +LEVO150T10 PO; +POTA-220 PO
[2024-05-29 09:10] VITALS: BP 166/74; PULSE 69; RESP 17; O2SAT 97
[2024-05-29 09:21] VITALS: BP 163/77; PULSE 69; RESP 16; O2SAT 99
--- NOTE | 2024-05-29 11:33 | DVH ---
XY CHEST TWO VIEWS ROUTINE CLINICAL HISTORY: PRE OP, pain COMPARISON: XY CHEST TWO VIEWS ROUTINE on DOS: 10/24/22, CHEST TWO VIEWS ROUTINE on DOS: 08/03/22, CXR2 on DOS: 08/03/22, CHEST TWO VIEWS ROUTINE on DOS: 01/03/22 TECHNIQUE: Frontal and lateral view of the chest was obtained FINDINGS: Lines and Tubes: Dual lead pacemaker Lungs: No focal consolidation. Pleura: No effusion. No pneumothorax. Cardiomediastinal contours: Unremarkable Bones: No acute osseous abnormality. IMPRESSION: No acute cardiopulmonary disease.
== END | disposition home or self-care (01) ==
LOC: Rad HDHVI 09:00
PROVIDERS: ATTEND Internal Medicine Cardiovascular Disease
DX: Z01.818 Encounter for other preprocedural examination (principal); R07.9 Chest pain, unspecified
CPT/HCPCS: 71046; 93005; G0463

== ENCOUNTER 2024-05-30 07:05 | Day surgery (SDC) | payer MEDICARE ==
[2024-05-29 13:05] LABS: Basophils # (auto) 0.1 10 ^3/uL (0-0.2); Basophils % (auto) 0.9 % (0.0-2.0); Eosinophils # (auto) 0.2 10 ^3/uL (0-0.8); Eosinophils % (auto) 2.9 % (0.0-7.0); Hemoglobin 12.7 g/dL (13.5-17.5); Lymphocytes # (auto) 1.8 10 ^3/uL (0.4-5.4); Lymphocytes % (auto) 27.7 % (10.0-50.0); Mean Corpuscular Hemoglobin 30.6 pg (28.0-32.0); Mean Corpuscular Hgb Conc. 34.4 g/dL (32.0-36.0); Monocytes # (auto) 0.7 10 ^3/uL (0-1.3); Monocytes % (auto) 11.4 % (0.0-12.0); Neutrophils # (auto) 3.7 10 ^3/uL (1.6-8.6); Neutrophils % (auto) 57.1 % (37.0-80.0); Nucleated Red Blood Cells % 0.1 %; Platelet Count (auto) 298 10^3/uL (140-450); Red Blood Cells 4.15 10^6/uL (4.5-5.90); Red Cell Distribution Width 13.6 % (11.8-14.3); White Blood Cell 6.5 10^3/uL (4.4-10.8)
[2024-05-29 13:22] LABS: INR 1.06 (0.9-1.15); Partial Thromboplastin Time 31.9 SEC (24.5-34.5); Prothrombin Time 11.2 sec (9.3-11.8)
[2024-05-29 13:36] LABS: Chloride 101 mmol/L (98-107); Potassium 3.8 mmol/L (3.5-5.1); Sodium 136 mmol/L (136-145)
[2024-05-29 13:37] LABS: Anion Gap 4 (5-15); Carbon Dioxide 31 mmol/L (20-31)
[2024-05-29 13:38] LABS: Calcium 10.1 mg/dL (8.7-10.4)
[2024-05-29 13:42] LABS: BUN/Creatinine Ratio 14.5 (10.0-20.0); Glucose 85 mg/dL (74-106)
[2024-05-29 14:07] LABS: Blood Urea Nitrogen 30 mg/dL (9-23)
[~2024-05-30] VITALS: Ht 167.6 cm; Wt 71.2 kg
[~2024-05-30 07:05] MED LIST changes: -ATOR-507 PO; -CLOP75TA28 PO; -GABA-1251 PO; -HYDR25TA87 PO; -IODIXANOL 320MG/ML 100ML BTL IV ONE; -LEVO125T7 PO; -POTA-36 PO
[2024-05-30] MEDS ORDERED: fentaNYL CITRATE 100 MCG/2 ML VL ONE (10:04)
[2024-05-30] MEDS ORDERED: SODIUM CHL 0.9% 50 ML ONE (10:04)
[2024-05-30] MEDS ORDERED: ANGIOMAX 250 MG VIAL IV ONE (10:04)
[2024-05-30] MEDS ORDERED: LIDOCAINE 2%HCL (LOCAL ANESTH.) INJ 20ML MDV ONE (10:04)
[2024-05-30] MEDS ORDERED: MIDAZOLAM HCL 2MG/2ML 2ml VIAL (1mg/ml) ONE (10:04)
[2024-05-30] MEDS ORDERED: CLOPIDOGREL BISULFATE 75 MG TAB ONE (10:49)
--- NOTE | 2024-05-30 11:19 | DVHOP ---
DATE OF SURGERY: 05/30/2024 PROCEDURES PERFORMED: * Selective left and right coronary angiography. * FFR of the right coronary artery. * Angioplasty with thrombectomy of the proximal RCA. * Angioplasty with stent placement of the RCA with a 2.5 x 26 mm Sean Stonewall stent. * Conscious sedation. * Right iliac angiography. DESCRIPTION OF PROCEDURE: The patient was prepped and draped in a sterile condition. A 1% Xylocaine used to anesthetize the right groin. Using Cook needle, right femoral artery was engaged with Seldinger technique, a 6-Tanzanian sheath in the right femoral artery. Using 6-Tanzanian JL4 catheter and 6-Tanzanian JR4 catheter, selective left and right coronary angiographies were performed. We did elect not to do a ventriculogram since he had TAVR approximately 3 years ago. We elected not to cross the aortic valve prosthesis. Then 6-Tanzanian diagnostic system was exchanged for a 6-Tanzanian interventional system. Using 6-Tanzanian JR4 guide catheter, the RCA was cannulated. Using a ChoICE PT extra support wire, the RCA lesion was then crossed. FFR was performed. After the FFR, we elected to angioplasty with a 2.0 x 20 mm Euphora balloon. Following the dilatation, a 2.5 x 12 mm shockwave balloon used to angioplasty of the RCA. This was followed by a second 2.5 x 20 mm balloon was used to balloon angioplasty the RCA, following fracture of the calcification with a shockwave balloon. Then, a 2.5 x 26 mm Hartsel Stonewall stent was deployed across the proximal RCA with less than 10% residual stenosis. The FFR was 0.79, consistent with hemodynamically significant lesion. CONCLUSION: * The patient with left main without any flow restrictive lesion. * Left anterior descending artery without any flow restrictive lesion. * Circumflex without any flow restrictive lesion. * Right coronary artery; however, had an 80% proximal narrowing, status post thrombectomy with shockwave with angioplasty and stent placement with a 2.5 x 26 mm Sean Stonewall stent with less than 10% residual stenosis. Isael Sahu MD SA/ONDINA TID: [id number] RECEIPT: [id number]
[2024-05-30] MEDS ORDERED: CLOP75TA28 PO (11:28)
--- NOTE | 2024-05-30 13:06 | DVHDS ---
DATE OF DISCHARGE: 05/30/2024 DISCHARGE DIAGNOSIS: The patient underwent successful angioplasty with stent placement of the proximal right coronary artery, it is a small caliber vessel. A 2.5 x 26 mm Peyton [place] stent was then deployed across the lesion. Following thrombectomy, the patient is having chest pain, I am hoping this is what is causing his chest discomfort. His left coronary system had mild disease, but no significant narrowing that warrants any intervention. He is stable at the time of discharge. HOSPITAL COURSE: Since this patient is taking anticoagulants, factor X inhibitors, we will add Plavix to his regimen. He has a previous history of hematuria and GI bleeding. Therefore, transiently at least for 30 days, we may hold his factor X inhibitor until he sees me. I will continue to monitor the patient. Stable at the time of discharge. DISPOSITION: Home. ACTIVITY: As instructed. DIET: Will be 2 g sodium diet. Isael Sahu MD SA/LOR TID: [id number] RECEIPT: [id number]
--- NOTE | 2024-05-31 00:01 | DVHHP ---
ADMIT DATE: 05/30/2024 HISTORY OF PRESENT ILLNESS: The patient with history of: * Hypertension. * Hyperlipidemia. Clinically, the patient is doing well. However, the patient will require a coronary angiography. He has been having exertional chest pain. He never used to have exertional chest pain. About 3-1/2 years ago, the patient underwent transaortic replacement of the aortic valve because the patient had critical aortic valve stenosis. He also has renal insufficiency. His creatinine usually runs around 2. He also has lower extremity venous insufficiency causing him lower extremity edema. Since his aortic valve replacement, he has done remarkably well. He has had GI workup in the past for abdominal pain; he also has been seen at [facility] for possible amyloidosis as well; all of which are being followed by tertiary care facilities. Now, he is having chest pain, shortness of breath and because of the presentation, the patient is scheduled to undergo coronary angiography. Risks and benefits were explained to the patient in view of the fact that the patient has renal insufficiency with a creatinine of 2. REVIEW OF SYSTEMS: He denies any syncopal episode. No melena or hematochezia. No bleeding diathesis. No hematemesis or hemoptysis. No fever or chills. No diarrhea. No history of inflammatory bowel disease or irritable bowel syndrome. No mixed connective tissue disease. No history of any trauma. He, however, has peripheral vascular disease. PHYSICAL EXAMINATION: VITAL SIGNS: Blood pressure is 146/82, pulse of 67 and regular. The patient with sick sinus syndrome and a permanent pacemaker. HEENT: Pupils are reactive. Funduscopic exam is benign. No AV nicking, no exudates, no papilledema. Extraocular muscles are intact. Sclerae are anicteric. NECK: No JVD appreciated. Carotid pulses are 2+ symmetrical, normal upstroke and contour. No adenopathy noted. PULMONARY: Scattered rhonchi throughout. CARDIOVASCULAR: Regular rate. PMI is not displaced. ABDOMEN: Soft, nontender. Normal bowel sounds. SKIN: Unremarkable. EXTREMITIES: Diminished pulses bilaterally. Doppler pulses in the popliteal region, as well as the DP and PT. ASSESSMENT AND PLAN: * Thus, the patient with chronic kidney disease. * History of diastolic and systolic dysfunction. * Status post aortic valve replacement. * Post-aortic valve replacement, requiring permanent pacemaker implantation. The patient with paroxysmal atrial fibrillation as well. Now, the patient is to undergo coronary angiography to define coronary anatomy because of ongoing chest pain. Isael Sahu MD SA/LUIS ANTONIO TID: [id number] RECEIPT: [id number]
== END 2024-05-30 13:20 | disposition home or self-care (01) ==
LOC: CATH 07:05
PROVIDERS: ATTEND Internal Medicine Cardiovascular Disease
DX: I25.10 Atherosclerotic heart disease of native coronary artery without angina pectoris (principal); I12.9 Hypertensive chronic kidney disease with stage 1 through stage 4 chronic kidney disease, or unspecified chronic kidney disease; E78.5 Hyperlipidemia, unspecified; R07.89 Other chest pain; R06.09 Other forms of dyspnea; R42 Dizziness and giddiness; R93.1 Abnormal findings on diagnostic imaging of heart and coronary circulation; I35.0 Nonrheumatic aortic (valve) stenosis; I48.0 Paroxysmal atrial fibrillation; I87.2 Venous insufficiency (chronic) (peripheral); N18.9 Chronic kidney disease, unspecified; Z95.2 Presence of prosthetic heart valve; Z79.899 Other long term (current) drug therapy; Z98.890 Other specified postprocedural states; Z95.5 Presence of coronary angioplasty implant and graft; Z79.82 Long term (current) use of aspirin
CPT/HCPCS: 36415; 75580; 80048; 85025; 85610; 85730; 92973; 93458; C1725; C1769; C1874; C1887; C1894; C9600; J0583; J2250; J3010; J7030; 99152; 99153

== ENCOUNTER → 2024-06-10 | Outpatient (CLI) | payer MEDICARE ==
[~2024-06-10] VITALS: Ht 30.5 cm; Wt 0.5 kg
[~2024-06-10] MED LIST changes: +CLOP75TA28 PO
[2024-06-10 13:57] VITALS: BP 147/68; PULSE 69; RESP 18; O2SAT 97
[2024-06-10] MEDS: PATIENTS OWN MEDICATION (FERRLECIT 125 MG) IV ONE (13:57)
[2024-06-10] MEDS: SODIUM FERRIC GLUC CPLEX 62.5MG/5ML VIAL IV ONE (14:06)
[2024-06-10 15:07] VITALS: BP 161/65; PULSE 70; RESP 18; O2SAT 97
== END | disposition home or self-care (01) ==
LOC: CHF HDHVI 10:50
PROVIDERS: ATTEND Internal Medicine Cardiovascular Disease
DX: D64.9 Anemia, unspecified (principal); R53.83 Other fatigue; I12.9 Hypertensive chronic kidney disease with stage 1 through stage 4 chronic kidney disease, or unspecified chronic kidney disease; N18.9 Chronic kidney disease, unspecified; I25.10 Atherosclerotic heart disease of native coronary artery without angina pectoris; I48.0 Paroxysmal atrial fibrillation; E78.5 Hyperlipidemia, unspecified; Z79.899 Other long term (current) drug therapy; Z95.5 Presence of coronary angioplasty implant and graft
CPT/HCPCS: 96365; G0463; J2916

== ENCOUNTER 2024-06-20 07:52 | Day surgery (SDC) | payer MEDICARE ==
[2024-06-17 13:47] LABS: Basophils # (auto) 0.1 10 ^3/uL (0-0.2); Eosinophils # (auto) 0.2 10 ^3/uL (0-0.8); Eosinophils % (auto) 3.7 % (0.0-7.0); Hematocrit 36.4 % (41.0-53.0); Hemoglobin 12.4 g/dL (13.5-17.5); Lymphocytes # (auto) 1.6 10 ^3/uL (0.4-5.4); Lymphocytes % (auto) 26.9 % (10.0-50.0); Mean Corpuscular Hemoglobin 30.4 pg (28.0-32.0); Mean Corpuscular Volume 89.4 fL (80.0-100.0); Monocytes # (auto) 0.6 10 ^3/uL (0-1.3); Monocytes % (auto) 9.7 % (0.0-12.0); Neutrophils # (auto) 3.6 10 ^3/uL (1.6-8.6); Neutrophils % (auto) 58.7 % (37.0-80.0); Platelet Count (auto) 281 10^3/uL (140-450); Red Blood Cells 4.08 10^6/uL (4.5-5.90); Red Cell Distribution Width 13.5 % (11.8-14.3); White Blood Cell 6.1 10^3/uL (4.4-10.8)
[2024-06-17 13:54] LABS: Anion Gap 3 (5-15); Carbon Dioxide 30 mmol/L (20-31); Chloride 101 mmol/L (98-107); Potassium 3.8 mmol/L (3.5-5.1)
[2024-06-17 13:55] LABS: Calcium 10.2 mg/dL (8.7-10.4)
[2024-06-17 13:56] LABS: Sodium 134 mmol/L (136-145)
[2024-06-17 14:00] LABS: BUN/Creatinine Ratio 19.3 (10.0-20.0)
[2024-06-17 14:01] LABS: INR 1.23 (0.9-1.15); Partial Thromboplastin Time 37.5 SEC (24.5-34.5); Prothrombin Time 12.8 sec (9.3-11.8)
[2024-06-17 14:02] LABS: Blood Urea Nitrogen 37 mg/dL (9-23); Glucose 122 mg/dL (74-106)
[~2024-06-20] VITALS: Ht 167.6 cm; Wt 72.1 kg
[~2024-06-20 07:52] MED LIST changes: -ASPI-543 PO; -TRAZ1TAB12 PO
[2024-06-20] MEDS ORDERED: ANGIOMAX 250 MG VIAL IV ONE (10:48)
[2024-06-20] MEDS ORDERED: fentaNYL CITRATE 100 MCG/2 ML VL ONE (10:48)
[2024-06-20] MEDS ORDERED: SODIUM CHL 0.9% 0 ML ONE (10:49)
[2024-06-20] MEDS ORDERED: LIDOCAINE 2%HCL (LOCAL ANESTH.) INJ 20ML MDV ONE (10:49)
[2024-06-20] MEDS ORDERED: MIDAZOLAM HCL 2MG/2ML 2ml VIAL (1mg/ml) ONE (10:49)
--- NOTE | 2024-06-20 11:48 | DVHHP2 ---
Admitting Diagnosis: CHEST PAIN History of Present Illness PT S/P PTCA STENT RCA NOW SINCE PROCEDURE HAVING CP REINVESTIGATE FOR STENT STENOSIS POST INTERVENTION The patient with history of: * Hypertension. * Hyperlipidemia. Clinically, the patient is doing well. However, the patient will require a coronary angiography. He has been having exertional chest pain. He never used to have exertional chest pain. About 3-1/2 years ago, the patient underwent transaortic replacement of the aortic valve because the patient had critical aortic valve stenosis. He also has renal insufficiency. His creatinine usually runs around 2. He also has lower extremity venous insufficiency causing him lower extremity edema. Since his aortic valve replacement, he has done remarkably well. He has had GI workup in the past for abdominal pain; he also has been seen at [facility] for possible amyloidosis as well; all of which are being followed by tertiary care facilities. Now, he is having chest pain, shortness of breath and because of the presentation, the patient is scheduled to undergo coronary angiography. Risks and benefits were explained to the patient in view of the fact that the patient has renal insufficiency with a creatinine of 2. Past Medical History REVIEW OF SYSTEMS: He denies any syncopal episode. No melena or hematochezia. No bleeding diathesis. No hematemesis or hemoptysis. No fever or chills. No diarrhea. No history of inflammatory bowel disease or irritable bowel syndrome. No mixed connective tissue disease. No history of any trauma. He, however, has peripheral vascular disease. Patient Family History: Cardiovascular disease G8 FATHER, Onset:Unknown G8 SISTER FH: cancer G8 SISTER, Onset:Unknown Allergies: Coded Allergies: No Known Drug Allergy (Verified Allergy, Unknown, 06/17/24) Home Meds Reported Medications Clopidogrel Bisulfate (Plavix) 75 Mg Tab, 1 TAB PO DAILY for cardiac stent new, #90 TAB 1 Refill 05/30/24 Carvedilol (Coreg) 25 Mg Tab, 1 TAB PO BID for HTN, #60 TAB 5 Refills 05/29/24 Dapagliflozin Propanediol (Farxiga) 10 Mg Tab, 10 MG PO DAILY, TAB 05/29/24 Hydroxyzine HCl (Hydroxyzine Hydrochloride) 25 Mg Tab, 25 MG PO BID for anxiety, TAB 05/29/24 Esomeprazole Magnesium Trihydr (Nexium) 40 Mg Cap, 1 CAP PO DAILY for gerd, #30 CAP 5 Refills 05/29/24 Potassium Chloride (Klor-Con M20) 20 Meq Tab, 20 MEQ PO BID for supplement, TAB 05/29/24 Levothyroxine Sodium (Levothyroxine Sodium) 150 Mcg Tab, 150 MCG PO QAM for low thyroid for 30 Days 05/29/24 Gabapentin (Gabapentin) 800 Mg Tab, 800 MG PO DAILY for neuropathy, TAB 05/29/24 Atorvastatin Calcium (Lipitor) 20 Mg Tab, 2 TAB PO DAILY for hogh cholesterol, #90 TAB 1 Refill 05/29/24 Vericiguat (Verquvo) 5 Mg Tab, 5 MG PO BID for claudication 03/27/23 Torsemide (Torsemide) 20 Mg Tab, 40 MG PO DAILY 03/27/23 Rivaroxaban (XARELTO) 10 Mg Tab, 10 MG PO DAILY for STOP ON 06/19/24 01/19/22 Physical Exam PHYSICAL EXAMINATION: VITAL SIGNS: Blood pressure is 146/82, pulse of 67 and regular. The patient with sick sinus syndrome and a permanent pacemaker. HEENT: Pupils are reactive. Funduscopic exam is benign. No AV nicking, no exudates, no papilledema. Extraocular muscles are intact. Sclerae are anicteric. NECK: No JVD appreciated. Carotid pulses are 2+ symmetrical, normal upstroke and contour. No adenopathy noted. PULMONARY: Scattered rhonchi throughout. CARDIOVASCULAR: Regular rate. PMI is not displaced. ABDOMEN: Soft, nontender. Normal bowel sounds. SKIN: Unremarkable. EXTREMITIES: Diminished pulses bilaterally. Doppler pulses in the popliteal region, as well as the DP and PT. Results Labs Test 06/17/24 13:31 Range/Units White Blood Count 6.1 4.4-10.8 10^3/uL Red Blood Count 4.08 L 4.5-5.90 10^6/uL Hemoglobin 12.4 L 13.5-17.5 g/dL Hematocrit 36.4 L 41.0-53.0 % Mean Corpuscular Volume 89.4 80.0-100.0 fL Mean Corpuscular Hemoglobin 30.4 28.0-32.0 pg Mean Corpuscular Hemoglobin Concent 34.0 32.0-36.0 g/dL Red Cell Distribution Width 13.5 11.8-14.3 % Platelet Count 281 140-450 10^3/uL Mean Platelet Volume 8.1 6.9-10.8 fL Neutrophils (%) (Auto) 58.7 37.0-80.0 % Lymphocytes (%) (Auto) 26.9 10.0-50.0 % Monocytes (%) (Auto) 9.7 0.0-12.0 % Eosinophils (%) (Auto) 3.7 0.0-7.0 % Basophils (%) (Auto) 1.0 0.0-2.0 % Neutrophils # (Auto) 3.6 1.6-8.6 10 ^3/uL Lymphocytes # (Auto) 1.6 0.4-5.4 10 ^3/uL Monocytes # (Auto) 0.6 0-1.3 10 ^3/uL Eosinophils # (Auto) 0.2 0-0.8 10 ^3/uL Basophils # (Auto) 0.1 0-0.2 10 ^3/uL Nucleated Red Blood Cells 0.0 % Prothrombin Time 12.8 H 9.3-11.8 sec Prothrombin Time INR 1.23 H 0.9-1.15 Activated Partial Thromboplast Time 37.5 H 24.5-34.5 SEC Sodium Level 134 L 136-145 mmol/L Potassium Level 3.8 3.5-5.1 mmol/L Chloride Level 101 98-107 mmol/L Carbon Dioxide Level 30 20-31 mmol/L Anion Gap 3 L 5-15 Blood Urea Nitrogen 37 H 9-23 mg/dL Creatinine 1.92 H 0.700-1.30 mg/dL Glomerular Filtration Rate Calc 35 >90 mL/min BUN/Creatinine Ratio 19.3 10.0-20.0 Serum Glucose 122 H 74-106 mg/dL Calcium Level 10.2 8.7-10.4 mg/dL Admitting Diagnosis: ANGINA Plan [facility] R/P STENT STENOSIS Plan discussed with: Patient JACOB DOMINGUEZ MD Jun 20, 2024 11:48
--- NOTE | 2024-06-20 12:06 | DVHDS ---
DATE OF DISCHARGE: 06/20/2024 DISCHARGE DIAGNOSES: * Angina. * Peripheral vascular disease. * Coronary artery disease. * Renal insufficiency. HOSPITAL COURSE: Clinically, the patient is doing well. The patient's chest pain is noncardiac in nature. Angiography revealed patent coronary anatomy with no stenosis. Previous site of stents placement in the right coronary artery was patent with no residual stenosis. At this time, the patient will be medically managed. Exercise program should be induced and no catheter-based or surgical intervention is warranted at this time. Isael Sahu MD SA/LOR TID: [id number] RECEIPT: [id number]
--- NOTE | 2024-06-20 12:11 | DVHOP ---
DATE OF SURGERY: 06/20/2024 PROCEDURES PERFORMED: Selective left and right coronary angiography, ventriculogram and right iliac angiography with conscious sedation. DESCRIPTION OF PROCEDURE: The patient was prepped and draped in a sterile condition. A 1% Xylocaine used to anesthetize the right groin. Using a Cook needle, right femoral artery was engaged with Seldinger technique, a 6-Portuguese sheath in the right femoral artery. Using 6-Portuguese JL4 catheter and 6-Portuguese JR4 catheter, selective left and right coronary angiographies were performed . We elected not to do the ventriculogram because the patient has a TAVR. There were no complications. The patient tolerated the procedure well. Right femoral arteriotomy site was closed using the Angio-Seal device. RESULTS: * Left main, patent. * Left anterior descending artery was patent. * Circumflex was patent. * Right coronary artery was patent. Previous site of angioplasty with stent placement has no residual stenosis. At this time, the patient's chest pain is noncardiac in nature, most likely possible small vessel spasm. We will medically manage the patient. Isael Sahu MD SA/ONDINA/BONIFACIO TID: [id number] RECEIPT: [id number]
== END 2024-06-20 13:30 | disposition home or self-care (01) ==
LOC: CATH 07:52
PROVIDERS: ATTEND Internal Medicine Cardiovascular Disease
DX: R07.89 Other chest pain (principal); R06.09 Other forms of dyspnea; I10 Essential (primary) hypertension; I35.0 Nonrheumatic aortic (valve) stenosis; I73.9 Peripheral vascular disease, unspecified; I87.2 Venous insufficiency (chronic) (peripheral); N28.9 Disorder of kidney and ureter, unspecified; Z79.01 Long term (current) use of anticoagulants; Z79.02 Long term (current) use of antithrombotics/antiplatelets; Z79.84 Long term (current) use of oral hypoglycemic drugs; Z79.890 Hormone replacement therapy; Z79.899 Other long term (current) drug therapy; Z95.2 Presence of prosthetic heart valve; Z95.5 Presence of coronary angioplasty implant and graft
CPT/HCPCS: 36415; 80048; 85025; 85610; 85730; 93454; C1894; J1644; J2250; J3010; J7030; 99152

== ENCOUNTER → 2024-08-26 | Outpatient (CLI) | payer MEDICARE | END | disposition home or self-care (01) | LOC: Rad HDHVI 12:53 | PROVIDERS: ATTEND Internal Medicine Cardiovascular Disease | DX: I73.9 Peripheral vascular disease, unspecified (principal) | CPT/HCPCS: 93925 ==

== ENCOUNTER → 2024-09-30 | Outpatient (CLI) | payer MEDICARE ==
[~2024-09-30] MED LIST changes: +POTA-180 PO
[2024-09-30 10:23] VITALS: BP 141/67; PULSE 70; RESP 18; O2SAT 97
[2024-09-30 10:35] VITALS: BP 143/66; PULSE 70; RESP 18; O2SAT 97
--- NOTE | 2024-09-30 12:16 | DVH ---
XY CHEST TWO VIEWS ROUTINE CLINICAL HISTORY: PRE OP, pain COMPARISON: XY CHEST TWO VIEWS ROUTINE on DOS: 05/29/24, XY CHEST TWO VIEWS ROUTINE on DOS: 10/24/22, C HEST TWO VIEWS ROUTINE on DOS: 08/03/22, CXR2 on DOS: 08/03/22, CHEST TWO VIEWS ROUTINE on DOS: 01/03/22 TECHNIQUE: Frontal and lateral view of the chest was obtained FINDINGS: Lines and Tubes: Left pacemaker Lungs: No focal consolidation. Pleura: No effusion. No pneumothorax. Cardiomediastinal contours: Unremarkable Bones: No acute osseous abnormality. IMPRESSION: No acute cardiopulmonary disease.
== END | disposition home or self-care (01) ==
LOC: Rad HDHVI 09:58
PROVIDERS: ATTEND Internal Medicine Cardiovascular Disease
DX: Z01.818 Encounter for other preprocedural examination (principal); I51.7 Cardiomegaly; R94.31 Abnormal electrocardiogram [ECG] [EKG]; R06.02 Shortness of breath; R07.89 Other chest pain; Z95.0 Presence of cardiac pacemaker
CPT/HCPCS: 71046; 93005; G0463

== ENCOUNTER 2024-10-03 07:29 | Day surgery (SDC) | payer MEDICARE ==
[2024-09-30 11:48] LABS: Basophils # (auto) 0.1 10 ^3/uL (0-0.2); Basophils % (auto) 0.9 % (0.0-2.0); Eosinophils # (auto) 0.2 10 ^3/uL (0-0.8); Eosinophils % (auto) 2.6 % (0.0-7.0); Hematocrit 38.3 % (41.0-53.0); Lymphocytes # (auto) 1.7 10 ^3/uL (0.4-5.4); Lymphocytes % (auto) 23.1 % (10.0-50.0); Mean Corpuscular Hemoglobin 29.9 pg (28.0-32.0); Mean Corpuscular Volume 87.9 fL (80.0-100.0); Monocytes # (auto) 0.7 10 ^3/uL (0-1.3); Monocytes % (auto) 10.1 % (0.0-12.0); Neutrophils # (auto) 4.5 10 ^3/uL (1.6-8.6); Neutrophils % (auto) 63.3 % (37.0-80.0); Nucleated Red Blood Cells % 0.1 %; Platelet Count (auto) 282 10^3/uL (140-450); Red Blood Cells 4.36 10^6/uL (4.5-5.90); Red Cell Distribution Width 13.7 % (11.8-14.3); White Blood Cell 7.1 10^3/uL (4.4-10.8)
[2024-09-30 12:07] LABS: INR 1.02 (0.9-1.15); Partial Thromboplastin Time 31.4 SEC (24.5-34.5); Prothrombin Time 10.8 sec (9.3-11.8)
[2024-09-30 12:29] LABS: Chloride 99 mmol/L (98-107); Potassium 4.2 mmol/L (3.5-5.1)
[2024-09-30 12:30] LABS: Anion Gap 7 (5-15); Calcium 10.2 mg/dL (8.7-10.4); Carbon Dioxide 28 mmol/L (20-31)
[2024-09-30 12:35] LABS: Glucose 106 mg/dL (74-106)
[2024-09-30 12:36] LABS: Blood Urea Nitrogen 31 mg/dL (9-23); Sodium 134 mmol/L (136-145)
[~2024-10-03] VITALS: Ht 167.6 cm; Wt 72.6 kg
[2024-10-03] VITALS (8 sets, daily range): BP systolic 141–173; BP diastolic 65–77; PULSE 70–92; RESP 12–18; O2SAT 97–100
[~2024-10-03 07:29] MED LIST changes: -RIVA10TA PO
[2024-10-03] MEDS ORDERED: ANGIOMAX 250 MG VIAL IV ONE (08:33)
[2024-10-03] MEDS ORDERED: fentaNYL CITRATE 100 MCG/2 ML VL ONE (08:33)
[2024-10-03] MEDS ORDERED: MIDAZOLAM HCL 2MG/2ML 2ml VIAL (1mg/ml) ONE (08:34)
[2024-10-03] MEDS ORDERED: LIDOCAINE 2%HCL (LOCAL ANESTH.) INJ 20ML MDV ONE (08:34)
[2024-10-03] MEDS ORDERED: ASPirin 325 MG TAB ONE (09:22)
[2024-10-03] MEDS: SODIUM CHLORIDE 0.9% 400 ML IV ONE (10:30)
--- NOTE | 2024-10-03 10:43 | DVHHP ---
ADMIT DATE: 10/03/2024 HISTORY OF PRESENT ILLNESS: The patient is 79 years old with a history of coronary artery disease, history of angioplasty, stent placement of the right coronary artery, history of TAVR, history of sick sinus syndrome status post pacemaker implantation. The patient now presents with signs and symptoms complex of increasing chest pain. Similar to the pain he had prior to the intervention of the right coronary artery stent placement. He is complaining given his minimal exertion the patient becomes symptomatic and the RCA is a dominant vessel, it is not a big caliber severe diffuse disease in the past. He denies any fever, chills, melena, hematochezia, hematemesis, hemoptysis. No history of any seizure disorder but he does have chronic kidney disease stage 3. He has previous history of benign/possible malignant lesion that has all been resolved at [facility]. In the meantime, the patient also has some liver lesions that has also been resolved. 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 PHYSICAL EXAMINATION: VITAL SIGNS: Blood pressure is 124/80, pulse 70, and O2 saturation 98% on room air. HEENT: Pupils are reactive. Funduscopic exam shows some AV nicking, exudates, otherwise unremarkable. NECK: No JVD appreciated. Carotid pulses are 2+ and symmetrical. PULMONARY: Clear to auscultation. CARDIOVASCULAR: Regular rate without S3, without S4. PMI is not displaced. ABDOMEN: Soft and nontender. Normal bowel sounds. SKIN: Unremarkable. EXTREMITY: Unremarkable. Stool guaiac is negative. Thus, the patient with: * Peripheral vascular disease. * History of renal insufficiency. * Sick sinus syndrome. 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 * Coronary artery disease. * Carotid artery disease., * History of atrial fibrillation as well. The patient now to undergo coronary angiography to define coronary anatomy. Further recommendations after the angiogram because of ongoing chest pain with exertion. Isael Sahu MD SA/LOIDA/NANETTE TID: [id number] RECEIPT: [id number]
--- NOTE | 2024-10-03 10:47 | DVHOP ---
DATE OF SURGERY: 10/03/2024 PROCEDURES TO BE PERFORMED: * Selective left and right coronary angiography. * Angioplasty with stent placement of the right coronary artery with a 2.75 x 26 mm Onxy stent. * Shockwave treatment of the RCA. * FFR of the RCA. FFR of the RCA turned out to be 0.73. The patient underwent thrombectomy of the right coronary artery with stent placement. Conscious sedation was given. PROCEDURE PERFORMED: The patient was prepped and draped in sterile condition. 1% Xylocaine used to anesthetize the right groin. Using a Cook needle, right femoral artery was engaged with Seldinger technique and 6-Zambian sheath of the right femoral artery. Using 6-Zambian JL4 catheter and a 6-Zambian JR4 catheter, selective left and right coronary angiography was performed. Then, a 6-Zambian diagnostic system was exchanged for a 6-Zambian interventional system. Using 6-Zambian guide catheter, right coronary artery was then cannulated. Then, a ChoICE PT extra support wire then crossed the lesion. FFR was performed. Then, a thrombectomy with shockwave device was performed. Then, it was then followed by a deployment of a 2.75 x 26 mm stent, deployed at 16 atmospheres. The patient's shock wave fany to 2.5 x 12 mm with shockwave thrombectomy catheter. RESULTS: * Left main, patent, calcified. * Left anterior descending artery, mild intermittent irregularity without any flow restrictive lesion. * Circumflex, mild intermittent irregularity without any flow restrictive lesion. * Right coronary artery, distal to the site of angioplasty, the patient had a 90% narrowing with an FFR of 0.73. The patient underwent successful thrombectomy, FFR, and then angioplasty with stent placement with 2.75 x 26 mm stent placement with less than 10% residual stenosis. At this time, the patient in fact stated that during the course of the procedure, the chest pain we were eliciting with the occlusion of the RCA was similar to chest pain he has been experiencing. CONCLUSION: * The patient had successful revascularization of the right coronary artery with stent placement. The patient had 90% narrowing of the mid RCA distal to the previous stent placement. * Circumflex, left anterior descending artery, and left main were calcified with mild diffuse disease but no flow restrictive lesion. Isael Sahu MD SA/DESIREE TID: [id number] RECEIPT: [id number]
--- NOTE | 2024-10-03 12:19 | DVHDS ---
DATE OF DISCHARGE: 10/03/2024 DISCHARGE DIAGNOSES: The patient underwent successful angioplasty with stent placement of the right coronary artery distal to the previous stent placement. The patient is clinically stable at this time. May be discharged home. Follow up with me in one week. Stable at the time of discharge. Activities . Diet, 2 gram sodium diet. Isael Sahu MD SA/LIODA/BONIFACIO TID: [id number] RECEIPT: [id number]
== END 2024-10-03 12:10 | disposition home or self-care (01) ==
LOC: CATH 07:29
PROVIDERS: ATTEND Internal Medicine Cardiovascular Disease
DX: I25.10 Atherosclerotic heart disease of native coronary artery without angina pectoris (principal); I25.84 Coronary atherosclerosis due to calcified coronary lesion; I49.5 Sick sinus syndrome; I48.91 Unspecified atrial fibrillation; Z95.5 Presence of coronary angioplasty implant and graft; Z95.2 Presence of prosthetic heart valve; Z95.0 Presence of cardiac pacemaker
CPT/HCPCS: 0523T; 36415; 80048; 85025; 85610; 85730; 92972; 92973; 93454; C1725; C1760; C1761; C1769; C1874; C1887; C1894; C9600; J0583; J1644; J2250; J3010; 99152; 99153

== ENCOUNTER → 2024-11-08 | Outpatient (CLI) | payer MEDICARE ==
--- NOTE | 2024-11-13 14:18 | DVHSR ---
APPROVED REPORT EXAM: Two-dimensional and M-mode echocardiogram with Doppler and color Doppler. Surgery/Intervention Valve Replacement: Pacemaker: DIMENSIONS LVDd5.2 (3.8-5.7cm)LA (2D)3.6 (1.9-4.0cm)Aortic Root (2.0-3.7cm) LVDs3.7 (2.5-4.0cm)LA (MM) (1.9-4.0cm)Aortic Cusp Exc (1.5-2.0cm) EF (%) 56.0 (55-70%)Rt. Atrium4.0 (1.9-4.0cm)Asc. Aorta cm IVSd1.0 (0.7-1.1cm)RV (D) (1.8-2.4cm) PWd1.0 (0.7-1.1cm) Mitral Valve MitralMitral Stenosis E wave0.70m/sMV Mean GR.mmHg A wave1.10m/sMV Peak GR.mmHg E/A ratio0.62D MVAcm2 Aortic Valve Aortic ValveAortic Stenosis V10.80m/Carine Mean GR.13mmHg V22.70m/Carine Peak GR.29mmHg Pulmonic Valve V20.70m/s Tricuspid Valve TR Velocity2.50m/s [id number] LEFT VENTRICLE The left ventricle is normal size. The left ventricle is normal in structure and function. The Ejection Fraction is within normal limits. RIGHT VENTRICLE The right ventricle is normal size. ATRIA The left atrial size is normal. The right atrium size is normal. The interatrial septum is intact with no evidence for an atrial septal defect. MITRAL VALVE The mitral valve is normal in structure and function. Mitral regurgitation is mild. PULMONIC VALVE The pulmonic valve is not well visualized. TRICUSPID VALVE The tricuspid valve is grossly normal. There is trace to mild tricuspid regurgitation. AORTIC VALVE The prosthetic aortic valve appears normal. GREAT VESSELS The aortic root is normal size. PERICARDIAL EFFUSION There is no pericardial effusion. Conclusion EF >55% NL FUNCTIONING PROSTHETIC AV
== END | disposition home or self-care (01) ==
LOC: Rad HDHVI 08:58
PROVIDERS: ATTEND Internal Medicine Cardiovascular Disease
DX: I08.1 Rheumatic disorders of both mitral and tricuspid valves (principal); I10 Essential (primary) hypertension
CPT/HCPCS: 93306

== ENCOUNTER 2024-12-30 09:46 | Outpatient (CLI) | payer MEDICARE ==
[2024-12-30 09:53] VITALS: BP 133/65; PULSE 85; RESP 17; O2SAT 96
[2024-12-30 10:12] VITALS: BP 130/61; PULSE 70; RESP 17; O2SAT 96
--- NOTE | 2024-12-30 13:27 | DVH ---
Chest x-ray Technique: PA and lateral views Comparison: 09/30/2024 CLINICAL INDICATION: PRE OP CARDIAC CLEARANCE FINDINGS: Heart size is normal. Pacer leads in the right atrium and right ventricle. Calcification i n the aortic arch. No infiltrates or effusions. No bony thoracic abnormalities. IMPRESSION: 1. No acute cardiopulmonary pathology
[2024-12-30] MEDS ORDERED: ATOR40TA52 PO (14:15)
[2024-12-30] MEDS ORDERED: ESOM40CA39 PO (14:15)
[2024-12-30] MEDS ORDERED: NITR0.4S29 SL (14:18)
== END 2024-12-30 17:00 | disposition home or self-care (01) ==
LOC: Rad HDHVI 09:46
PROVIDERS: ATTEND Internal Medicine Cardiovascular Disease
DX: Z01.818 Encounter for other preprocedural examination (principal); I70.0 Atherosclerosis of aorta; I73.9 Peripheral vascular disease, unspecified; R06.02 Shortness of breath
CPT/HCPCS: 71046; 93005; G0463

== ENCOUNTER 2025-01-02 06:50 | Day surgery (SDC) | payer MEDICARE ==
[2024-12-30 11:19] LABS: Hematocrit 33.9 % (41.0-53.0); Hemoglobin 11.8 g/dL (13.5-17.5); Mean Corpuscular Hemoglobin 29.9 pg (28.0-32.0); Mean Corpuscular Volume 86.4 fL (80.0-100.0); Nucleated Red Blood Cells % 0.0 %
[2024-12-30 11:24] LABS: INR 1.06 (0.9-1.15); Partial Thromboplastin Time 29.9 SEC (24.5-34.5); Prothrombin Time 11.2 sec (9.3-11.8)
[2024-12-30 12:06] LABS: Anion Gap 6 (5-15); Carbon Dioxide 28 mmol/L (20-31); Chloride 100 mmol/L (98-107); Potassium 4.1 mmol/L (3.5-5.1)
[2024-12-30 12:07] LABS: Calcium 9.8 mg/dL (8.7-10.4); Sodium 134 mmol/L (136-145)
[2024-12-30 12:12] LABS: BUN/Creatinine Ratio 14.4 (10.0-20.0)
[2024-12-30 12:13] LABS: Blood Urea Nitrogen 24 mg/dL (9-23); Glucose 108 mg/dL (74-106)
[~2025-01-02] VITALS: Ht 175.3 cm; Wt 72.6 kg
[2025-01-02] VITALS (10 sets, daily range): BP systolic 68–134; BP diastolic 43–62; PULSE 70; RESP 12–14; O2SAT 93–97
[~2025-01-02 06:50] MED LIST changes: -ATOR20TA PO; +ATOR40TA52 PO; -DAPA1TAB4 PO; +NITR0.4S29 SL; -POTA-220 PO
[2025-01-02] MEDS: IOHEXOL 350 MG/ML 100ML IJ ONE (08:18)
[2025-01-02] MEDS: HEPARIN IN NS 1000Units/500mL 1,500 ML ONE (08:19)
[2025-01-02] MEDS: LIDOCAINE 2%HCL (LOCAL ANESTH.) INJ 20ML MDV ONE ×2 (09:08→09:39)
[2025-01-02] MEDS: ANGIOMAX 250 MG VIAL IV ONE (09:38)
[2025-01-02] MEDS: SODIUM CHL 0.9% 0 ML ONE (09:39)
[2025-01-02] MEDS: MIDAZOLAM HCL 2MG/2ML 2ml VIAL (1mg/ml) ONE (09:39)
[2025-01-02] MEDS: fentaNYL CITRATE 100 MCG/2 ML VL ONE (09:39)
[2025-01-02] MEDS: IODIXANOL 320MG/ML 100ML BTL IV ONE (10:14)
[2025-01-02] MEDS: NITROGLYCERIN 0.4MG/DOSE SPRAY 4.9GM ONE (10:20)
[2025-01-02] MEDS ORDERED: SODIUM CHLORIDE 0.9% 250 ML IV ONE (11:00)
--- NOTE | 2025-01-02 11:10 | DVHOP ---
DATE OF SURGERY: 01/02/2025 PROCEDURE PERFORMED: Bilateral renal angiography. DESCRIPTION OF PROCEDURE: The patient was prepped and draped in sterile condition. 1% Xylocaine was used to anesthetize the right groin. Using Cook needle, right femoral artery was engaged. Using Seldinger technique, a 6-Bangladeshi sheath was placed in the right femoral artery. Using a 6-Bangladeshi pigtail catheter, abdominal aortography was performed and using a 6-Bangladeshi JR4 diagnostic catheter, selective left and right renal angiography was performed. There were no complications. The patient has very labile blood pressure. Because of labile blood pressure, we felt the patient should undergo the above-mentioned procedure. RESULTS: Left and right renal artery without any significant flow restrictive lesion with mild calcification noted in the ostium. Therefore, the patient does not have any significant renal artery stenosis that will account for the labile blood pressure. Isael Sahu MD SA/KAYLI TID: [id number] RECEIPT: [id number]
--- NOTE | 2025-01-02 11:15 | DVHDS ---
DATE OF DISCHARGE: 01/02/2025 DISCHARGE DIAGNOSES: * The patient underwent successful coronary angiography without any significant lesions noted at this time. Previous site of stent placement was patent of the right coronary artery. The patient's TAVR procedure that was done for aortic valve stenosis shows intact aortic valve with no gradient across the prosthetic aortic valve at this time. The patient however marked fluctuating blood pressure I believe is accounting for the patient's symptoms. * Bilateral renal angiography failed to demonstrate any significant renal artery stenosis. * Bilateral lower extremity angiography shows intermittent irregularity, patent stents in both SFAs. However, three-vessel distal runoff without any significant narrowing. That could explain for his lower extremity pain. At this time, medical management needs to be implemented. Antihypertensive therapy should be aggressive in this patient. We will continue to follow. The patient stable at the time of discharge. DISPOSITION: Home. ACTIVITY: As instructed. DIET: 2-gram sodium diet. Follow up with me in one week. Isael Sahu MD SA/LOIDA TID: [id number] RECEIPT: [id number]
--- NOTE | 2025-01-02 11:20 | DVHOP ---
DATE OF SURGERY: 01/02/2025 PROCEDURE PERFORMED: Selective left and right lower extremity angiography. There were no complications. The patient tolerated the procedure well. Right femoral arteriotomy site was closed using the Angio-Seal device. DESCRIPTION OF PROCEDURE: The patient was prepped and draped in a sterile condition. Then, 1% Xylocaine was used to anesthetize the right groin. Using Cook needle right femoral artery was engaged. Using the Seldinger technique, a 6-Ukrainian sheath was placed in the right femoral artery. Using 6-Ukrainian sheath angiography of the right lower extremity was performed. Then, using the contralateral approach, we were able to get in the contralateral left lower extremity. Angiography of the left lower extremity was performed using a Infratel guide catheter in the distal superficial femoral artery, proximal popliteal artery. There were no complications. The patient tolerated the procedure well. RESULTS: * Left and right iliac mild intimal irregularity with calcification. No flow restrictive lesion. * Left and right common femoral without any flow restrictive lesion. * Left and right profunda, mild intimal irregularity without any significant flow restrictive lesion. * Right superficial femoral artery mild intimal irregularity, with mild in-stent restenosis. Brisk flow was noted. No significant stenosis of the SFA. Popliteal stent was noted even though there is calcification, intimal proliferation was noted, with 3-vessel distal runoff, anterior tibial, posterior tibial, and peroneal arteries. * Left lower extremity shows patent left SFA. Again, mild intimal irregularity of the stent that was seen in the left lower extremity with 3-vessel distal runoff, anterior tibial, posterior tibial, and peroneal arteries, with mild intimal irregularity. At this time, no significant lesions were noted. There was brisk flow throughout both lower extremities. It does not account for the claudication-like symptoms that the patient is experiencing. At this time, I believe the patient should be medically managed. Aggressive antihypertensive therapy should be initiated and the patient may benefit from small vessel disease treatment. Pletal may be beneficial as well. He is already on Verquvo. We will continue to follow the patient. Isael Sahu MD SA/WING TID: [id number] RECEIPT: [id number]
--- NOTE | 2025-01-02 11:47 | DVHHP ---
ADMIT DATE: 01/02/2025 HISTORY OF PRESENT ILLNESS: The patient is a 79-year-old with history of coronary artery disease status post angioplasty with stent placement to RCA. History of aortic valve stenosis, status post TAVR procedure. Now, history of peripheral vascular disease, has bilateral lower extremity angioplasty with stent placement of the SFA. The patient is now having increasing symptoms of fluctuating blood pressure. It was associated with shortness of breath, chest pain even with minimal exertion, and also claudication symptoms. The patient is now to undergo coronary angiography, right and left renal angiography as well as lower extremity angiography. Risks and benefits were explained to the patient. The patient understands and agrees. PAST MEDICAL HISTORY: Significant for hypertension, coronary artery disease, hyperlipidemia, history of COPD, history of peripheral vascular disease, history of diabetes, diabetic neuropathy, vasculopathy, nephropathy. The patient with stage 3 kidney disease with a creatinine of 1.67 as well. Therefore, during angiography, very judicious use of contrast and nonionic contrast will be used. FAMILY HISTORY: Negative. SOCIAL HISTORY: Remote history of tobacco use, but discontinued smoking some 10 years ago. REVIEW OF SYSTEMS: He denies any syncopal episode. No melena or hematochezia. No hematemesis or hemoptysis. No history of head trauma. No fever. No chills. He denies any mixed connective tissue disease. Denies any irritable bowel syndrome or ischemic bowel. He denies any history of inflammatory bowel disease. He does have diffuse osteoarthritis and neuropathy at this time. PHYSICAL EXAMINATION: VITAL SIGNS: Blood pressure is 138/74, pulse is 76, O2 saturation 94% on 2 L. HEENT: Pupils are reactive. Funduscopic exam shows some AV nicking. No exudates. No papilledema. Extraocular muscles are intact. Oral mucosa moist. Posterior pharynx without any exudates. NECK: Carotid pulses are 2+, symmetrical. Normal upstroke and contour. No JVD appreciated. No cervical adenopathy. No supraclavicular adenopathy. PULMONARY: Clear to auscultation. However, some scattered rhonchi at the bases. CARDIOVASCULAR: Regular rate. There is a 2/6 systolic murmur along the left sternal border. ABDOMEN: Soft, nontender. Normal bowel. EXTREMITIES: 1+ Doppler pulses bilaterally. ASSESSMENT AND PLAN: Thus, patient with peripheral vascular disease, history of coronary artery disease, history of aortic valve stenosis, status post TAVR, history of hypertension, hyperlipidemia, now with chest pain, labile blood pressure and claudication symptoms. The patient is to undergo the both mentioned procedures. He is aware of the risks and benefits. We will continue to follow the patient. Isael Sahu MD SA/KAYLI TID: [id number] RECEIPT: [id number]
--- NOTE | 2025-01-02 11:54 | DVHOP ---
DATE OF SURGERY: 01/02/2025 PROCEDURES PERFORMED: * Selective left and right coronary angiography. * Ventriculogram. * Right iliac angiography. * Conscious sedation was given as well. DESCRIPTION OF PROCEDURE: The patient was prepped and draped in the usual sterile condition. 1% Xylocaine was used to anesthetize the right groin. Using a Cook needle, right femoral artery was engaged and using Seldinger technique, a 6-Thai sheath in the right femoral artery. Using a 6-Thai JL4 catheter and 6-Thai JR4 catheter, selective left and right coronary angiography was performed. Using a 6-Thai pigtail catheter, ventriculogram was done. There were no complications. The patient tolerated the procedure well. Risks and benefits were explained to the patient prior to the intervention. RESULTS: * Left main patent, left anterior descending artery, mild intimal irregularity without any fluoroscopic lesion. * Circumflex artery had mild intimal irregularity without any fluoroscopic lesion. Mid circumflex at the bifurcation of the obtuse marginal 1 had mild narrowing, but FFR was performed. It showed the patient to have FFR of 0.92. Therefore, it is insignificant narrowing. * Right coronary artery previous site of stent placement was patent with no residual stenosis. * We deferred the ventriculogram but pressure gradients obtained. The patient is status post TAVR and the patient had marked elevation of systolic blood pressure of almost 200 and diastolic was 90. The patient's left ventricular end diastolic pressure was 15 to 17 mmHg with less than 5 mm gradient across the aortic valve. CONCLUSION: At this time, I believe the patient has no significant coronary artery disease. The patient's prosthetic aortic valve is within normal limits. However, I believe the patient's fluctuating blood pressure whenever he exerts himself is what is causing the patient to have severe dyspnea, lack of energy, and shortness of breath. Therefore, aggressive antihypertensive therapy should be initiated. We need to continue to follow the patient. No catheter-based or surgical intervention is warranted. Isael Sahu MD SA/MEAGAN/NANETTE TID: [id number] RECEIPT: [id number]
== END 2025-01-02 13:01 | disposition home or self-care (01) ==
LOC: CATH 06:50
PROVIDERS: ATTEND Internal Medicine Cardiovascular Disease
DX: I25.10 Atherosclerotic heart disease of native coronary artery without angina pectoris (principal); E11.51 Type 2 diabetes mellitus with diabetic peripheral angiopathy without gangrene; T82.856A Stenosis of peripheral vascular stent, initial encounter; I10 Essential (primary) hypertension; I35.0 Nonrheumatic aortic (valve) stenosis; E11.40 Type 2 diabetes mellitus with diabetic neuropathy, unspecified; E11.21 Type 2 diabetes mellitus with diabetic nephropathy; E78.5 Hyperlipidemia, unspecified; J44.9 Chronic obstructive pulmonary disease, unspecified; Z95.2 Presence of prosthetic heart valve; Z95.4 Presence of other heart-valve replacement; Z95.5 Presence of coronary angioplasty implant and graft; Z79.890 Hormone replacement therapy; Z79.899 Other long term (current) drug therapy; Z87.891 Personal history of nicotine dependence; Z82.49 Family history of ischemic heart disease and other diseases of the circulatory system; Z80.8 Family history of malignant neoplasm of other organs or systems; Y71.8 Miscellaneous cardiovascular devices associated with adverse incidents, not elsewhere classified
CPT/HCPCS: 0523T; 36247; 36252; 75716; 93458; C1760; C1769; C1887; C1894; J1644; J2250; J3010; J7030; Q9967; 36415; 80048; 85025; 85610; 85730; 99152; 99153